=== PATIENT | male | born 1955 | race Caucasian/White ===

== ENCOUNTER → 2018-02-19 10:25 | Outpatient (CLI) | payer OTHER, SELFPAY ==
[2016-11-08 15:12] VITALS: BMI 44.6
--- NOTE | 2018-02-19 10:27 | STEWCON_ITS ---
Reason For Study: Pre-Op Stress Results Protocol: Dobutamine Stress Echo Maximum Predicted HR: 159 bpm Target HR: 135 bpm% Maximum Pre dicted HR: 86 % DurationHeart Rate Stage (mm:ss) (bpm) BPCom ment Baseline 57 155/80 No Chest Pain, Definity 10 ML Diluted Given DSE 10 MCG 4:07 73 148/86No Chest Pain DSE 20 MCG 3:00 11 1 183/87No Chest Pain DSE 30 MCG 3:00 12 3 183/79No Chest Pain DSE 40 MCG 2:42 13 7 171/76No Chest Pain; Atropine 0.5 MG IVP Recovery 97 148/75 No Chest Pain Stress Duration: 12:49 mm:ss Maximum Stress HR: 137 bpmME TS: 1 Baseline Echocardiogram Findings The estimated ejection fraction is 65 %. Stress Echo Wall motion Data Resting WMIntermediate WMStress WM Resting Wall Motion Wall Motion Stress No regional wall motion No regional wall motion abnormalities noted. abnormalities noted. EKG Data The baseline ECG demonstrates normal sinus rhythm with at rate of _ beats per minute. The patient was titrated from 10 mcg to a maximum of 40 mcg of dobutamine during the stress. The maximum heart rate attained was 137 beats per minute. This was 86% of maximum predicted heart rate. During dobutamine infusion, there were no ST or T wave changes noted to suggest ischemia. No clinical angina was noted. Interpretation Summary The study was technically difficult. Contrast injection was performed. The estimated ejection fraction is 65 %. Normal, adequate, treadmill dobutamine echocardiogram. Negative for ischemia by EKG and echocardiographic criteria. No anginal symptoms noted. Hypertensive blood pressure response to dobutamine. Rare PVCs noted. Final LVEF is 75%. Decreased sensitivity due to poor echo windows requiring Definity enhancement agent. No complications. Ordering Physician: Carlos Luna Referring Physician: Carlos Luna Performed By: Nelia Brock, KHURRAM, RVT
== END ==
PROVIDERS: Visit Provider Internal Medicine Cardiovascular Disease
DX: Z01.810 Encounter for preprocedural cardiovascular examination (principal); I25.10 Atherosclerotic heart disease of native coronary artery without angina pectoris; I25.5 Ischemic cardiomyopathy; I25.2 Old myocardial infarction; Z95.5 Presence of coronary angioplasty implant and graft
CPT/HCPCS: 93017; 93350; J7030; Q9957; A4216; C8928

== ENCOUNTER → 2019-10-09 08:45 | Outpatient (CLI) | payer OTHER, SELFPAY ==
[2016-11-08 15:12] VITALS: BMI 44.6
[2019-04-13 16:00] VITALS: BMI 44.6
[2019-10-09 10:06] LABS: Hemoglobin A1c 7.3 % (4.2-6.3)
[2019-10-09 10:32] LABS: AST(SGOT) 13 U/L (15-37); Alanine Aminotransfer ALT/SGPT 21 U/L (16-61); Albumin, Serum 3.9 g/dL (3.2-5.0); Alkaline Phosphatase 122 U/L (45-117); Bilirubin, Direct 0.19 mg/dL (0.00-0.30); Cholesterol 168 mg/dL (200); Globulin 3.4 g/dL (2.2-4.2); Glucose 151 mg/dL (74-106); High Density Lipoprotein 57 mg/dL; PSA,Total - Annual Screen 2.92 ng/mL (0.00-4.00); Protein, Total 7.3 g/dL (6.4-8.2); Thyroid Stim Hormone (TSH) 1.45 uIU/mL (0.358-3.74); Triglycerides 136 mg/dL; Very Low Density Lipoprotein 27 mg/dL (5-40)
== END ==
PROVIDERS: PCP Family Medicine; Referring Provider Internal Medicine Cardiovascular Disease; Visit Provider Internal Medicine Cardiovascular Disease
DX: E78.00 Pure hypercholesterolemia, unspecified (principal)
CPT/HCPCS: 36415; 80061; 80076; 82947; 83036; 84153; 84443; G0103

== ENCOUNTER → 2020-11-18 08:08 | Outpatient (CLI) | payer OTHER, SELFPAY ==
[2016-11-08 15:12] VITALS: BMI 44.6
[2020-10-03 08:41] VITALS: BMI 43.0
[2020-11-18 08:48] LABS: Prothrombin Time (Protime)PT. 22.3 SECONDS (11.7-14.9)
[2020-11-18 08:57] LABS: Basophil# 0.03 X10^3/uL; Basophil% 0.4 % (0-1); Eosinophil# 0.12 X10^3/uL; Eosinophils% 1.8 % (0-5); Hemoglobin 14.6 g/dL (13.0-16.5); Lymphocyte % 29.8 % (19-41); Mean Corp Hgb Conc 31.7 g/dL (32-36); Mean Corpuscular Hgb 28.7 pg (27.0-32.0); Mean Corpuscular Volume 90.6 fL (80-94); Mean Platelet Vol. 10.2 fl (6.2-12.0); Monocyte# 0.57 X10^3/uL; Monocyte% 8.5 % (0-10); NRBC Flagged by Analyzer 0 % (0-5); Neutrophil # 3.96 X10^3/uL (2.7-7.7); Neutrophil % 59.1 % (47-70); Platelet Count 290 K/mm3 (150-450); RBC Distribution Width CV 14.5 % (11.6-14.6); RBC Distribution Width SD 48.1 fl (35.1-43.9); Red Blood Count 5.08 M/mm3 (4.6-6.2); White Blood Count 6.7 K/mm3 (4.4-11.0)
[2020-11-18 08:59] LABS: Erythrocyte Sedimentation Rate 18 mm/hr (0-20)
[2020-11-18 09:22] LABS: CRP < 2.90 mg/L (0.0-3.0)
[2020-11-21 17:07] LABS: Vitamin D 1,25-Dihydroxy 82.4 pg/mL (19.9-79.3)
== END ==
PROVIDERS: Physician Assistant Medical; PCP Family Medicine; Referring Provider Physician Assistant Surgical; Visit Provider Physician Assistant Surgical
DX: I26.99 Other pulmonary embolism without acute cor pulmonale (principal); Z09 Encounter for follow-up examination after completed treatment for conditions other than malignant neoplasm; T84.53XD Infection and inflammatory reaction due to internal right knee prosthesis, subsequent encounter; Z96.651 Presence of right artificial knee joint
CPT/HCPCS: 36415; 82652; 85025; 85610; 85652; 86140

== ENCOUNTER → 2020-12-06 09:31 | Outpatient (CLI) | payer OTHER, SELFPAY ==
[2016-11-08 15:12] VITALS: BMI 44.6
[2020-12-06 08:29] VITALS: BMI 47.0
[2020-12-06 09:59] LABS: Absolute Lymphocyte Count 1.56 X10^3/uL (0.83-4.51); Absolute Neutrophil Count 3.4 X10^3/uL (2.0-7.7); Basophil# 0.03 X10^3/uL; Basophil% 0.5 % (0-1); Eosinophil# 0.14 X10^3/uL; Eosinophils% 2.5 % (0-5); Hemoglobin 14.5 g/dL (13.0-16.5); Lymphocyte # 1.56 X10^3/ul (0.83-4.51); Lymphocyte % 27.8 % (19-41); Mean Corp Hgb Conc 32.2 g/dL (32-36); Mean Corpuscular Hgb 28.9 pg (27.0-32.0); Mean Corpuscular Volume 89.8 fL (80-94); Mean Platelet Vol. 10.4 fl (6.2-12.0); Monocyte# 0.47 X10^3/uL; Monocyte% 8.4 % (0-10); NRBC Flagged by Analyzer 0 % (0-5); Neutrophil # 3.39 X10^3/uL (2.7-7.7); Neutrophil % 60.4 % (47-70); Platelet Count 216 K/mm3 (150-450); RBC Distribution Width CV 14.4 % (11.6-14.6); RBC Distribution Width SD 47.2 fl (35.1-43.9); Red Blood Count 5.01 M/mm3 (4.6-6.2); White Blood Count 5.6 K/mm3 (4.4-11.0)
[2020-12-06 10:32] LABS: BNP,B-Type NATRIURETIC PEPTIDE 141.9 pg/mL (0-100)
[2020-12-06 10:45] LABS: AST(SGOT) 11 U/L (15-37); Alanine Aminotransfer ALT/SGPT 21 U/L (16-61); Albumin, Serum 3.5 g/dL (3.2-5.0); Alkaline Phosphatase 92 U/L (45-117); Anion Gap 5 (5-15); BUN 21 mg/dL (7-18); BUN/Creat Ratio 30.4 RATIO (10-20); Bilirubin, Direct 0.26 mg/dL (0.00-0.30); Calcium,Total 8.8 mg/dL (8.5-10.1); Chloride 109 mmol/L (98-107); Cholesterol 128 mg/dL (200); Creatinine, Serum 0.69 mg/dL (0.70-1.30); EST Glomerular Filtration Rate 123 mL/min (>60); Est Glom Filt Rate - Afr Amer 148 mL/min (>60); Globulin 3.2 g/dL (2.2-4.2); Glucose 163 mg/dL (74-106); High Density Lipoprotein 49 mg/dL; Potassium 4.4 mmol/L (3.5-5.1); Protein, Total 6.7 g/dL (6.4-8.2); Sodium Level 139 mmol/L (136-145); Triglycerides 136 mg/dL; Very Low Density Lipoprotein 27 mg/dL (5-40)
== END ==
PROVIDERS: PCP Family Medicine; Referring Provider Nurse Practitioner Family; Visit Provider Nurse Practitioner Family
DX: R07.9 Chest pain, unspecified (principal); I25.10 Atherosclerotic heart disease of native coronary artery without angina pectoris; E78.5 Hyperlipidemia, unspecified; Z95.5 Presence of coronary angioplasty implant and graft
CPT/HCPCS: 80048; 80061; 80076; 83880; 85025

== ENCOUNTER → 2020-12-18 07:02 | Outpatient (CLI) | payer OTHER, SELFPAY ==
[2016-11-08 15:12] VITALS: BMI 44.6
[2020-12-06 08:29] VITALS: BMI 47.0
--- NOTE | 2020-12-18 07:03 | ECHOCS_ITS ---
Reason For Study: Afib, Aflutter Procedure This was a 2D Doppler, Color Flow transthoracic echocardiogram. Contrast injection was performed. The study was technically difficult. Exam performed in department. Left Ventricle Normal LV size. Moderate concentric left ventricular hypertrophy. Sigmoid septum. Left ventricular systolic function is normal. The estimated ejection fraction is 60 %. Right Ventricle Normal RV size. Normal systolic function. Atria The left atrium is moderately enlarged. Normal right atrium. Mitral Valve Normal mitral valve. Tricuspid Valve The tricuspid valve is not well visualized. Aortic Valve The aortic valve is not well visualized. Pulmonic Valve The pulmonic valve is not well visualized. Great Vessels Normal aortic root. The pulmonary artery is normal size. Normal inferior vena cava. Pericardium/Pleural No pericardial effusion. Medication Diluted definity 5ml given slow IV push to enhance endocardial definition. MMode/2D Measurements & Calculations LVIDd: 4.8 cm IVSd: 1.6 cm Ao root diam: 3.5 cm LVIDs: 3.4 cm LVPWd: 1.2 cm RVDd: 4.2 cm FS: 30.1 % LAV(MOD-bp): 83.1 ml LA A4 area: 25.4 cm2 LA dimension(2D): 5.0 cm LAV(MOD-bp) Indexed: 32.1 ml/m2 LAV(MOD-sp2): 89.0 ml LAV(MOD-sp4): 73.0 ml RA A4 area: 19.8 cm2 Doppler Measurements & Calculations MV E max mak: 117.7 cm/sec Ao V2 max: 112.6 cm/sec LV V1 max: 83.9 cm/sec Ao max P.1 mmHg LV V1 max P.9 mmHg Ao V2 mean: 84.7 cm/sec Ao mean P.1 mmHg Ao V2 VTI: 22.4 cm PA V2 max: 76.1 cm/sec ECHO/Echo Complete W/ Contrast Interpretation Summary Normal LV size. Moderate concentric left ventricular hypertrophy. Left ventricular systolic function is normal. The estimated ejection fraction is 60 %. Contrast injection was performed. Ordering Physician: Johnathan Robles Referring Physician: Florentin Collier Performed By: Gracy Robles, KHURRAM, RVT
--- NOTE | 2020-12-18 11:55 | STRESSREP ---
Stress Test Report Pharmacologic myocardial perfusion stress test. 65-year-old man with a history of coronary artery disease status post angioplasty and stenting of the left anterior descending artery, circumflex artery, and obtuse marginal branch. Stress protocol: Resting EKG demonstrates atrial fibrillation with a rate of 82 bpm and a right bundle branch block. Resting blood pressure is 158/86 mmHg. 0.4 mg of regadenoson was infused per usual protocol followed by rapid intravenous saline flush injection continuous EKG monitoring was performed. The maximum heart rate attained was 110 bpm which was 70% of maximum predicted heart rate the maximum workload was 1 metabolic equivalent. At rest there were no ST or T wave changes noted to suggest abnormal flow reserve and at peak infusion nonspecific ST changes were noted. The peak blood pressure was 158/86 mmHg. Myocardial perfusion protocol. 14.8 mCi of technetium 99m sestamibi was injected at rest. 0.4 mg of regadenoson was infused per usual protocol. At peak infusion 44.9 mCi of technetium 99m sestamibi was injected stress images were obtained stress and rest images were constructed and compared in the short axis vertical long and horizontal long axis. Gated images were also obtained. Perfusion SPECT analysis: Review of the stress images demonstrate normal uptake of tracer noted in all areas of the myocardium except for the apex. The resting images similarly demonstrate normal perfusion in all areas except for the apex. The rest of the chavez appear to be well perfused. The above is suggestive of an anterior apical infarct. No ischemia is noted. Gated SPECT analysis: The gated ejection fraction is 57% with a nearly akinetic apex. Conclusion: Pharmacologic myocardial perfusion stress test with apical infarct. Preserved ejection fraction is noted. No ischemia present.
== END ==
PROVIDERS: PCP Family Medicine; Referring Provider Nurse Practitioner Family; Visit Provider Nurse Practitioner Family
DX: R07.9 Chest pain, unspecified (principal); I48.91 Unspecified atrial fibrillation; I25.10 Atherosclerotic heart disease of native coronary artery without angina pectoris; Z95.5 Presence of coronary angioplasty implant and graft
CPT/HCPCS: 78452; 93017; 93306; A9500; Q9957; A4216; C8929; J2785; J3490

== ENCOUNTER → 2021-02-13 12:20 | Outpatient (CLI) | payer OTHER, SELFPAY ==
[2016-11-08 15:12] VITALS: BMI 44.6
[2020-12-27 08:35] VITALS: BMI 47.0
[2021-02-13 13:18] LABS: Absolute Lymphocyte Count 1.39 X10^3/uL (0.83-4.51); Absolute Neutrophil Count 4.3 X10^3/uL (2.0-7.7); Basophil# 0.01 X10^3/uL; Basophil% 0.2 % (0-1); Eosinophil# 0.11 X10^3/uL; Eosinophils% 1.7 % (0-5); Hemoglobin 14.1 g/dL (13.0-16.5); Lymphocyte # 1.39 X10^3/ul (0.83-4.51); Lymphocyte % 21.1 % (19-41); Mean Corp Hgb Conc 31.3 g/dL (32-36); Mean Corpuscular Hgb 28.3 pg (27.0-32.0); Mean Corpuscular Volume 90.4 fL (80-94); Mean Platelet Vol. 9.9 fl (6.2-12.0); Monocyte# 0.71 X10^3/uL; Monocyte% 10.8 % (0-10); NRBC Flagged by Analyzer 0 % (0-5); Neutrophil # 4.34 X10^3/uL (2.7-7.7); Neutrophil % 65.9 % (47-70); Platelet Count 316 K/mm3 (150-450); RBC Distribution Width CV 14.4 % (11.6-14.6); RBC Distribution Width SD 47.8 fl (35.1-43.9); Red Blood Count 4.98 M/mm3 (4.6-6.2); White Blood Count 6.6 K/mm3 (4.4-11.0)
[2021-02-13 13:31] LABS: Erythrocyte Sedimentation Rate 80 mm/hr (0-20); International Normalized Ratio 2.1
[2021-02-13 13:39] LABS: Anion Gap 6 (5-15); BUN 16 mg/dL (7-18); BUN/Creat Ratio 20.2 RATIO (10-20); Chloride 107 mmol/L (98-107); Creatinine, Serum 0.79 mg/dL (0.70-1.30); EST Glomerular Filtration Rate 105 mL/min (>60); Est Glom Filt Rate - Afr Amer 127 mL/min (>60); Glucose 193 mg/dL (74-106); Sodium Level 139 mmol/L (136-145)
== END ==
PROVIDERS: Nurse Practitioner Family; PCP Family Medicine; Referring Provider Physician Assistant Surgical; Visit Provider Physician Assistant Surgical
DX: M25.561 Pain in right knee (principal); I48.0 Paroxysmal atrial fibrillation; I45.10 Unspecified right bundle-branch block; Z79.02 Long term (current) use of antithrombotics/antiplatelets; Z79.01 Long term (current) use of anticoagulants
CPT/HCPCS: 36415; 80048; 85025; 85610; 85652; 86140

== ENCOUNTER → 2021-02-15 | Outpatient (CLI) | payer OTHER, SELFPAY ==
[2016-11-08 15:12] VITALS: BMI 44.6
[2020-12-27 08:35] VITALS: BMI 47.0
[2021-02-15 10:36] LABS: Synovial Fld Mononuclear WBC % 2.3 %; Synovial Fld Polynuclear WBC % 97.7 %
[2021-02-15 10:53] LABS: RBC /Synovial Fluid 0.011 10^6/uL (0)
[2021-02-15 10:55] LABS: AUTO B FLUID DILUENT BKGD CT WBC <0.1 RBC <0.01 (W<.1,R<.01); Appearance /Synovial Fluid Turbid (CLEAR); Color / Synovial Fluid Yellow (Pale Yellow); Source / Synovial Fluid KNEE; Viscosity / Synovial Fluid Viscous (HIGH)
[2021-02-15 12:20] LABS: Body Fluid QC Type(s) BF1Q; Lymph 1 %; Neutrophil 99 % (0-25)
[2021-02-16 13:40] LABS: Pathologist Comment Reviewed
== END | disposition home or self-care (01) ==
LOC: LABSPEC 09:37
PROVIDERS: Referring Provider Specialist; Visit Provider Specialist
DX: Z96.651 Presence of right artificial knee joint (principal)
CPT/HCPCS: 87015; 87070; 87075; 87077; 87101; 87116; 87186; 87205; 87206; 89050; 89051

== ENCOUNTER 2021-03-26 10:32 | Day surgery (SDC) | payer OTHER, SELFPAY ==
[2016-11-08 15:12] VITALS: BMI 44.6
[2021-02-27 14:53] VITALS: BMI 45.3
[2021-03-23 09:32] VITALS: BMI 45.3
--- NOTE | 2021-03-24 06:58 | RAD_ITS ---
STUDY: X-RAY CHEST REASON FOR EXAM: Male, 65 years old. pre-operative TECHNIQUE: PA and lateral views of the chest. COMPARISON: 10/13/2016 FINDINGS: Status post anterior cervical discectomy and fusion lower cervical spine. The lungs are clear and expanded. There is no demonstrated pleural abnormality. Normal size heart. Normal mediastinum and esteban. Normal visualized pulmonary arteries. Normal visualized aortic arch and descending thoracic aorta. Normal visualized thoracic spine. Normal visualized ribs, clavicles, and shoulders. There is no demonstrated abnormality of the visualized soft tissue structures of the upper abdomen. RAD/Chest PA and Lateral IMPRESSION: Normal x-ray examination of the chest. Electronically Signed: Judah Costello MD at 8:05 EDT Tel , Service support ,
[2021-03-24 08:22] LABS: AST(SGOT) 13 U/L (15-37); Alanine Aminotransfer ALT/SGPT 19 U/L (16-61); Albumin, Serum 3.4 g/dL (3.2-5.0); Alkaline Phosphatase 119 U/L (45-117); Anion Gap 10 (5-15); BUN 15 mg/dL (7-18); BUN/Creat Ratio 20.7 RATIO (10-20); Bilirubin, Direct 0.24 mg/dL (0.00-0.30); Calcium,Total 9.4 mg/dL (8.5-10.1); Chloride 102 mmol/L (98-107); Cholesterol 165 mg/dL (200); Creatinine, Serum 0.72 mg/dL (0.70-1.30); EST Glomerular Filtration Rate 116 mL/min (>60); Est Glom Filt Rate - Afr Amer 140 mL/min (>60); Estimated Creatinine Clearance 127.25 ml/min; Globulin 4.2 g/dL (2.2-4.2); Glucose 165 mg/dL (74-106); High Density Lipoprotein 45 mg/dL; Potassium 4.2 mmol/L (3.5-5.1); Protein, Total 7.6 g/dL (6.4-8.2); Sodium Level 138 mmol/L (136-145); Triglycerides 140 mg/dL; Very Low Density Lipoprotein 28 mg/dL (5-40)
--- NOTE | 2021-03-26 12:11 | OP.PCM_ITS ---
Problems Associated Problem List Diagnoses (1) Paroxysmal atrial fibrillation: Operative Report Date of Procedure: 03/26/21 DC cardioversion. 65-year-old man with a history of persistent atrial fibrillation. Patient has been compliant with anticoagulation. The patient was seen by Dr. Falk of the critical care division. Informed consent was obtained. Anterior-posterior pads were applied. The patient was then administered 100 mg of intravenous propofol. 300 J of synchronized DC cardioversion energy were applied which was not successful in restoring sinus rhythm. The patient was administered an additional 40 mg of intravenous propofol for total of 140 mg. 360 J of DC card ioversion were applied with prompt reversal to sinus rhythm. Patient tolerated the procedure well. Conclusion: Successful DC cardioversion from atrial fibrillation to sinus rhythm. Continue current medication. We will follow office protocol.
--- NOTE | 2021-03-26 12:56 | PRO.PCM_ITS ---
Assessment & Plan Assessment/Plan (1) Paroxysmal atrial fibrillation: (2) Sleep apnea: (3) Obesities, morbid: (4) Pulmonary embolism, bilateral: (5) Cardiomyopathy, ischemic: Procedure Report Date of Procedure: 03/26/21 CONSCIOUS SEDATION REPORT BRIEF HISTORY OF PRESENT ILLNESS: The patient is a 65-year-old male who presented to [facility] for an elective outpatient cardioversion due to underlying atrial fibrillation. The patient reports no PO intake since midnight, but is currently therapeutic on anticoagulation. The patient does have a history of obstructive sleep apnea and is compliant with therapy. The patient reports no history of smoking and COPD. The patient denies any recent constitutional symptoms such as fevers, chills, nausea or vomiting. The patient denies previous applicable anesthetic complications. Patient's last known ejection fraction was 60% and he is compliant with Eliquis at baseline. Patient is on doxycycline secondary to a chronic right knee infection. PHYSICAL EXAMINATION: VITAL SIGNS: Reviewed and were acceptable. GENERAL: The patient is a male, in no apparent distress, speaking in full sentences. HEENT: Normocephalic, atraumatic. Mucous membranes are moist and pink. Good mouth opening noted. Trachea is midline. Good neck mobility. MP IV CHEST: S1, S2 irregularly irregular. No murmurs, rubs or gallops were noted. LUNGS: Clear to auscultation bilaterally without appreciable wheezes, rales or rhonchi. ABDOMEN: Soft, nontender, nondistended. Positive bowel sounds. EXTREMITIES: There is no clubbing, cyanosis or edema. ASA Class: II DESCRIPTION OF PROCEDURE: After confirmation of informed consent, the patient's anesthesia plan was reviewed in detail. Propofol was chosen. Risks and benefits were reviewed and the patient agreed to proceed. At 11:56 AM, the patient was given 40 mg of prop ofol. The patient required a total of 140 mg of propofol throughout the procedure to achieve appropriate sedation. The patient achieved an appropriate level of sedation and received 2 attempt s synchronized cardioversion, at 300 J and [address] Amado at the bedside. This was successful in achieving normal sinus rhythm. The patient was monitored until 12:12 PM, at which time the patient reached their baseline mental status and function. The patient tolerated the procedure well. COMPLICATIONS: None ESTIMATED BLOOD LOSS: None RECOMMENDATIONS: Okay to recover in usual fashion. Procedures Pulmonary 9xxxx: [id number] Con Sedation
== END 2021-03-26 13:20 | disposition home or self-care (01) ==
PROVIDERS: Nurse Practitioner Family; Visit Provider Internal Medicine Cardiovascular Disease
DX: I48.0 Paroxysmal atrial fibrillation (principal); E78.2 Mixed hyperlipidemia; I25.10 Atherosclerotic heart disease of native coronary artery without angina pectoris; I25.5 Ischemic cardiomyopathy; G47.30 Sleep apnea, unspecified; E11.9 Type 2 diabetes mellitus without complications; E66.01 Morbid (severe) obesity due to excess calories; I10 Essential (primary) hypertension; Z95.5 Presence of coronary angioplasty implant and graft; Z86.718 Personal history of other venous thrombosis and embolism; Z86.711 Personal history of pulmonary embolism; Z79.84 Long term (current) use of oral hypoglycemic drugs; Z79.02 Long term (current) use of antithrombotics/antiplatelets; Z79.899 Other long term (current) drug therapy; Z68.42 Body mass index [BMI] 45.0-49.9, adult
CPT/HCPCS: 36415; 71046; 80048; 80061; 80076; 92960; 93005; J7040

== ENCOUNTER → 2021-05-12 10:05 | Outpatient (CLI) | payer OTHER, SELFPAY ==
[2016-11-08 15:12] VITALS: BMI 44.6
[2021-05-12 10:53] LABS: Absolute Lymphocyte Count 1.31 X10^3/uL (0.83-4.51); Absolute Neutrophil Count 4.4 X10^3/uL (2.0-7.7); Basophil# 0.02 X10^3/uL; Basophil% 0.3 % (0-1); Eosinophil# 0.22 X10^3/uL; Eosinophils% 3.4 % (0-5); Hematocrit 45.1 % (40-54); Lymphocyte # 1.31 X10^3/ul (0.83-4.51); Lymphocyte % 20.3 % (19-41); Mean Corpuscular Hgb 27.1 pg (27.0-32.0); Mean Corpuscular Volume 87.2 fL (80-94); Mean Platelet Vol. 9.4 fl (6.2-12.0); Monocyte# 0.51 X10^3/uL; Monocyte% 7.9 % (0-10); NRBC Flagged by Analyzer 0 % (0-5); Neutrophil # 4.37 X10^3/uL (2.7-7.7); Neutrophil % 67.6 % (47-70); Platelet Count 324 K/mm3 (150-450); RBC Distribution Width CV 15.8 % (11.6-14.6); Red Blood Count 5.17 M/mm3 (4.6-6.2); White Blood Count 6.5 K/mm3 (4.4-11.0)
[2021-05-12 11:01] LABS: International Normalized Ratio 1.3
[2021-05-12 11:48] LABS: ALB/GLOB Ratio 0.7 RATIO (0.9-2.4); AST(SGOT) 10 U/L (15-37); Alanine Aminotransfer ALT/SGPT 17 U/L (16-61); Albumin, Serum 3.2 g/dL (3.2-5.0); Alkaline Phosphatase 105 U/L (45-117); Anion Gap 9 (5-15); BUN 20 mg/dL (7-18); BUN/Creat Ratio 28.3 RATIO (10-20); Calcium,Total 9.9 mg/dL (8.5-10.1); Chloride 102 mmol/L (98-107); Creatinine, Serum 0.71 mg/dL (0.70-1.30); EST Glomerular Filtration Rate 119 mL/min (>60); Est Glom Filt Rate - Afr Amer 144 mL/min (>60); Globulin 4.4 g/dL (2.2-4.2); Glucose 156 mg/dL (74-106); Potassium 4.4 mmol/L (3.5-5.1); Protein, Total 7.6 g/dL (6.4-8.2); Sodium Level 138 mmol/L (136-145)
== END ==
DX: T84.53XA Infection and inflammatory reaction due to internal right knee prosthesis, initial encounter (principal); Z96.651 Presence of right artificial knee joint
CPT/HCPCS: 36415; 80053; 85025; 85610

== ENCOUNTER → 2021-05-28 | Outpatient (CLI) | payer OTHER, SELFPAY ==
[2016-11-08 15:12] VITALS: BMI 44.6
[2021-05-28 11:01] LABS: Absolute Lymphocyte Count 0.86 X10^3/uL (0.83-4.51); Absolute Neutrophil Count 3.1 X10^3/uL (2.0-7.7); Basophil# 0.03 X10^3/uL; Basophil% 0.6 % (0-1); Eosinophil# 0.25 X10^3/uL; Eosinophils% 5.3 % (0-5); Hematocrit 33.6 % (40-54); Hemoglobin 10.3 g/dL (13.0-16.5); Lymphocyte # 0.86 X10^3/ul (0.83-4.51); Lymphocyte % 18.1 % (19-41); Mean Corp Hgb Conc 30.7 g/dL (32-36); Mean Corpuscular Hgb 26.6 pg (27.0-32.0); Mean Corpuscular Volume 86.8 fL (80-94); Mean Platelet Vol. 9.9 fl (6.2-12.0); Monocyte# 0.43 X10^3/uL; Monocyte% 9.1 % (0-10); NRBC Flagged by Analyzer 0 % (0-5); Neutrophil # 3.14 X10^3/uL (2.7-7.7); Neutrophil % 66.3 % (47-70); Platelet Count 273 K/mm3 (150-450); RBC Distribution Width CV 16.8 % (11.6-14.6); Red Blood Count 3.87 M/mm3 (4.6-6.2); White Blood Count 4.7 K/mm3 (4.4-11.0)
[2021-05-28 11:17] LABS: Erythrocyte Sedimentation Rate 50 mm/hr (0-20)
[2021-05-28 11:24] LABS: ALB/GLOB Ratio 0.8 RATIO (0.9-2.4); AST(SGOT) 12 U/L (15-37); Alanine Aminotransfer ALT/SGPT 16 U/L (16-61); Albumin, Serum 2.7 g/dL (3.2-5.0); Alkaline Phosphatase 91 U/L (45-117); Anion Gap 10 (5-15); BUN 17 mg/dL (7-18); BUN/Creat Ratio 35.9 RATIO (10-20); Calcium,Total 8.7 mg/dL (8.5-10.1); Chloride 104 mmol/L (98-107); Creatinine, Serum 0.47 mg/dL (0.70-1.30); EST Glomerular Filtration Rate 189 mL/min (>60); Est Glom Filt Rate - Afr Amer 229 mL/min (>60); Globulin 3.2 g/dL (2.2-4.2); Glucose 140 mg/dL (74-106); Protein, Total 5.9 g/dL (6.4-8.2); Sodium Level 139 mmol/L (136-145)
[2021-05-28 11:29] LABS: Vancomycin, Trough Level 6.6 ug/mL (5.0-15.0)
== END | disposition home or self-care (01) ==
LOC: LABSPEC 10:34
DX: T84.84XA Pain due to internal orthopedic prosthetic devices, implants and grafts, initial encounter (principal); T84.53XD Infection and inflammatory reaction due to internal right knee prosthesis, subsequent encounter
CPT/HCPCS: 80053; 80202; 85025; 85652

== ENCOUNTER → 2021-06-04 | Outpatient (CLI) | payer OTHER, SELFPAY ==
[2021-06-04 11:12] LABS: Absolute Lymphocyte Count 1.04 X10^3/uL (0.83-4.51); Basophil# 0.03 X10^3/uL; Basophil% 0.6 % (0-1); Eosinophil# 0.29 X10^3/uL; Eosinophils% 5.9 % (0-5); Hematocrit 39.8 % (40-54); Hemoglobin 12.3 g/dL (13.0-16.5); Lymphocyte # 1.04 X10^3/ul (0.83-4.51); Lymphocyte % 21.1 % (19-41); Mean Corp Hgb Conc 30.9 g/dL (32-36); Mean Corpuscular Volume 87.3 fL (80-94); Mean Platelet Vol. 10.1 fl (6.2-12.0); Monocyte# 0.53 X10^3/uL; Monocyte% 10.8 % (0-10); NRBC Flagged by Analyzer 0 % (0-5); Platelet Count 264 K/mm3 (150-450); RBC Distribution Width CV 17.4 % (11.6-14.6); RBC Distribution Width SD 54.8 fl (35.1-43.9); Red Blood Count 4.56 M/mm3 (4.6-6.2); White Blood Count 4.9 K/mm3 (4.4-11.0)
[2021-06-04 11:22] LABS: Erythrocyte Sedimentation Rate 37 mm/hr (0-20)
[2021-06-04 11:33] LABS: AST(SGOT) 17 U/L (15-37); Alanine Aminotransfer ALT/SGPT 21 U/L (16-61); Albumin, Serum 3.3 g/dL (3.2-5.0); Alkaline Phosphatase 103 U/L (45-117); Anion Gap 7 (5-15); BUN 19 mg/dL (7-18); BUN/Creat Ratio 33.9 RATIO (10-20); Calcium,Total 9.2 mg/dL (8.5-10.1); Chloride 106 mmol/L (98-107); Creatinine, Serum 0.56 mg/dL (0.70-1.30); EST Glomerular Filtration Rate 156 mL/min (>60); Est Glom Filt Rate - Afr Amer 188 mL/min (>60); Globulin 3.3 g/dL (2.2-4.2); Glucose 132 mg/dL (74-106); Potassium 4.3 mmol/L (3.5-5.1); Protein, Total 6.6 g/dL (6.4-8.2); Sodium Level 139 mmol/L (136-145)
[2021-06-04 11:34] LABS: Vancomycin, Trough Level 10.3 ug/mL (5.0-15.0)
== END | disposition home or self-care (01) ==
DX: T84.53XD Infection and inflammatory reaction due to internal right knee prosthesis, subsequent encounter (principal); T84.84XA Pain due to internal orthopedic prosthetic devices, implants and grafts, initial encounter; Y83.8 Other surgical procedures as the cause of abnormal reaction of the patient, or of later complication, without mention of misadventure at the time of the procedure; Y92.9 Unspecified place or not applicable
CPT/HCPCS: 80053; 80202; 85025; 85652

== ENCOUNTER → 2021-06-11 | Outpatient (CLI) | payer OTHER, SELFPAY ==
[2016-11-08 15:12] VITALS: BMI 44.6
[2021-06-11 11:00] LABS: Basophil# 0.03 X10^3/uL; Basophil% 0.8 % (0-1); Eosinophil# 0.31 X10^3/uL; Eosinophils% 8.7 % (0-5); Hematocrit 38.2 % (40-54); Hemoglobin 11.9 g/dL (13.0-16.5); Lymphocyte % 19.6 % (19-41); Mean Corp Hgb Conc 31.2 g/dL (32-36); Mean Corpuscular Hgb 27.4 pg (27.0-32.0); Mean Corpuscular Volume 87.8 fL (80-94); Mean Platelet Vol. 9.9 fl (6.2-12.0); Monocyte# 0.51 X10^3/uL; Monocyte% 14.3 % (0-10); NRBC Flagged by Analyzer 0 % (0-5); Platelet Count 190 K/mm3 (150-450); RBC Distribution Width CV 17.5 % (11.6-14.6); RBC Distribution Width SD 55.9 fl (35.1-43.9); Red Blood Count 4.35 M/mm3 (4.6-6.2); White Blood Count 3.6 K/mm3 (4.4-11.0)
[2021-06-11 11:05] LABS: Erythrocyte Sedimentation Rate 25 mm/hr (0-20)
[2021-06-11 11:22] LABS: Vancomycin, Trough Level 9.9 ug/mL (5.0-15.0)
[2021-06-11 11:23] LABS: AST(SGOT) 12 U/L (15-37); Alanine Aminotransfer ALT/SGPT 21 U/L (16-61); Alkaline Phosphatase 99 U/L (45-117); Anion Gap 8 (5-15); BUN 19 mg/dL (7-18); BUN/Creat Ratio 30.8 RATIO (10-20); Calcium,Total 8.8 mg/dL (8.5-10.1); Chloride 105 mmol/L (98-107); Creatinine, Serum 0.62 mg/dL (0.70-1.30); EST Glomerular Filtration Rate 140 mL/min (>60); Est Glom Filt Rate - Afr Amer 169 mL/min (>60); Glucose 155 mg/dL (74-106); Potassium 4.1 mmol/L (3.5-5.1); Sodium Level 138 mmol/L (136-145)
== END | disposition home or self-care (01) ==
LOC: LABSPEC 10:41
DX: T84.53XD Infection and inflammatory reaction due to internal right knee prosthesis, subsequent encounter (principal); T84.84XA Pain due to internal orthopedic prosthetic devices, implants and grafts, initial encounter
CPT/HCPCS: 80053; 80202; 85025; 85652

== ENCOUNTER → 2021-06-18 | Outpatient (CLI) | payer OTHER, SELFPAY ==
[2016-11-08 15:12] VITALS: BMI 44.6
[2021-06-18 11:13] LABS: Absolute Lymphocyte Count 0.73 X10^3/uL (0.83-4.51); Absolute Neutrophil Count 2.3 X10^3/uL (2.0-7.7); Basophil# 0.03 X10^3/uL; Basophil% 0.8 % (0-1); Eosinophil# 0.26 X10^3/uL; Eosinophils% 7.1 % (0-5); Hematocrit 39.1 % (40-54); Hemoglobin 12.3 g/dL (13.0-16.5); Lymphocyte # 0.73 X10^3/ul (0.83-4.51); Mean Corp Hgb Conc 31.5 g/dL (32-36); Mean Corpuscular Volume 85.9 fL (80-94); Mean Platelet Vol. 10.3 fl (6.2-12.0); Monocyte# 0.37 X10^3/uL; Monocyte% 10.1 % (0-10); NRBC Flagged by Analyzer 0 % (0-5); Neutrophil # 2.25 X10^3/uL (2.7-7.7); Neutrophil % 61.7 % (47-70); Platelet Count 178 K/mm3 (150-450); RBC Distribution Width SD 53.9 fl (35.1-43.9); Red Blood Count 4.55 M/mm3 (4.6-6.2); White Blood Count 3.7 K/mm3 (4.4-11.0)
[2021-06-18 11:17] LABS: Erythrocyte Sedimentation Rate 33 mm/hr (0-20)
[2021-06-18 11:28] LABS: AST(SGOT) 16 U/L (15-37); Alanine Aminotransfer ALT/SGPT 25 U/L (16-61); Alkaline Phosphatase 102 U/L (45-117); Anion Gap 7 (5-15); BUN 17 mg/dL (7-18); BUN/Creat Ratio 29.9 RATIO (10-20); Calcium,Total 8.7 mg/dL (8.5-10.1); Chloride 107 mmol/L (98-107); Creatinine, Serum 0.57 mg/dL (0.70-1.30); EST Glomerular Filtration Rate 153 mL/min (>60); Est Glom Filt Rate - Afr Amer 185 mL/min (>60); Globulin 2.9 g/dL (2.2-4.2); Glucose 167 mg/dL (74-106); Potassium 4.2 mmol/L (3.5-5.1); Protein, Total 5.9 g/dL (6.4-8.2); Sodium Level 139 mmol/L (136-145)
[2021-06-18 11:29] LABS: Vancomycin, Trough Level 13.6 ug/mL (5.0-15.0)
== END | disposition home or self-care (01) ==
LOC: LABSPEC 10:51
DX: T84.53XD Infection and inflammatory reaction due to internal right knee prosthesis, subsequent encounter (principal); T84.84XA Pain due to internal orthopedic prosthetic devices, implants and grafts, initial encounter
CPT/HCPCS: 80053; 80202; 85025; 85652

== ENCOUNTER → 2021-06-25 | Outpatient (CLI) | payer OTHER, SELFPAY ==
[2016-11-08 15:12] VITALS: BMI 44.6
[2021-06-25 11:03] LABS: Absolute Lymphocyte Count 0.73 X10^3/uL (0.83-4.51); Absolute Neutrophil Count 2.2 X10^3/uL (2.0-7.7); Basophil# 0.02 X10^3/uL; Basophil% 0.6 % (0-1); Eosinophil# 0.13 X10^3/uL; Eosinophils% 3.8 % (0-5); Hemoglobin 11.9 g/dL (13.0-16.5); Lymphocyte # 0.73 X10^3/ul (0.83-4.51); Lymphocyte % 21.4 % (19-41); Mean Corp Hgb Conc 30.5 g/dL (32-36); Mean Corpuscular Hgb 26.6 pg (27.0-32.0); Mean Corpuscular Volume 87.2 fL (80-94); Mean Platelet Vol. 10.5 fl (6.2-12.0); Monocyte# 0.33 X10^3/uL; Monocyte% 9.7 % (0-10); NRBC Flagged by Analyzer 0 % (0-5); Neutrophil # 2.19 X10^3/uL (2.7-7.7); Neutrophil % 64.2 % (47-70); Platelet Count 185 K/mm3 (150-450); RBC Distribution Width CV 16.8 % (11.6-14.6); RBC Distribution Width SD 53.7 fl (35.1-43.9); Red Blood Count 4.47 M/mm3 (4.6-6.2); White Blood Count 3.4 K/mm3 (4.4-11.0)
[2021-06-25 11:06] LABS: Erythrocyte Sedimentation Rate 28 mm/hr (0-20)
[2021-06-25 11:12] LABS: Vancomycin, Trough Level 12.5 ug/mL (5.0-15.0)
[2021-06-25 11:24] LABS: AST(SGOT) 13 U/L (15-37); Alanine Aminotransfer ALT/SGPT 23 U/L (16-61); Alkaline Phosphatase 93 U/L (45-117); Anion Gap 8 (5-15); BUN 16 mg/dL (7-18); BUN/Creat Ratio 32.3 RATIO (10-20); Calcium,Total 8.9 mg/dL (8.5-10.1); Chloride 108 mmol/L (98-107); EST Glomerular Filtration Rate 179 mL/min (>60); Est Glom Filt Rate - Afr Amer 217 mL/min (>60); Glucose 142 mg/dL (74-106); Potassium 4.1 mmol/L (3.5-5.1); Sodium Level 141 mmol/L (136-145)
== END | disposition home or self-care (01) ==
LOC: LABSPEC 10:49
DX: T84.84XA Pain due to internal orthopedic prosthetic devices, implants and grafts, initial encounter (principal); T84.53XD Infection and inflammatory reaction due to internal right knee prosthesis, subsequent encounter
CPT/HCPCS: 80053; 80202; 85025; 85652

== ENCOUNTER → 2021-07-02 | Outpatient (CLI) | payer OTHER, SELFPAY ==
[2016-11-08 15:12] VITALS: BMI 44.6
[2021-07-02 12:41] LABS: Absolute Lymphocyte Count 0.59 X10^3/uL (0.83-4.51); Absolute Neutrophil Count 2.1 X10^3/uL (2.0-7.7); Basophil# 0.01 X10^3/uL; Basophil% 0.3 % (0-1); Eosinophil# 0.17 X10^3/uL; Eosinophils% 5.2 % (0-5); Hematocrit 41.7 % (40-54); Hemoglobin 12.8 g/dL (13.0-16.5); Lymphocyte # 0.59 X10^3/ul (0.83-4.51); Lymphocyte % 17.9 % (19-41); Mean Corp Hgb Conc 30.7 g/dL (32-36); Mean Corpuscular Hgb 26.9 pg (27.0-32.0); Mean Corpuscular Volume 87.6 fL (80-94); Mean Platelet Vol. 10.8 fl (6.2-12.0); Monocyte# 0.46 X10^3/uL; Monocyte% 13.9 % (0-10); NRBC Flagged by Analyzer 0 % (0-5); Neutrophil # 2.06 X10^3/uL (2.7-7.7); Neutrophil % 62.4 % (47-70); POSITIVE DIFFERENTIAL YES; Platelet Count 191 K/mm3 (150-450); RBC Distribution Width CV 16.4 % (11.6-14.6); RBC Distribution Width SD 52.8 fl (35.1-43.9); Red Blood Count 4.76 M/mm3 (4.6-6.2); White Blood Count 3.3 K/mm3 (4.4-11.0)
[2021-07-02 12:44] LABS: Erythrocyte Sedimentation Rate 27 mm/hr (0-20)
[2021-07-02 12:45] LABS: Differential Indicated SCAN CRITERIA MET
[2021-07-02 13:04] LABS: Vancomycin, Trough Level 12.1 ug/mL (5.0-15.0)
[2021-07-02 13:08] LABS: ALB/GLOB Ratio 1.2 RATIO (0.9-2.4); AST(SGOT) 14 U/L (15-37); Alanine Aminotransfer ALT/SGPT 20 U/L (16-61); Albumin, Serum 3.3 g/dL (3.2-5.0); Alkaline Phosphatase 99 U/L (45-117); Anion Gap 11 (5-15); BUN 18 mg/dL (7-18); Chloride 105 mmol/L (98-107); Creatinine, Serum 0.54 mg/dL (0.70-1.30); EST Glomerular Filtration Rate 161 mL/min (>60); Est Glom Filt Rate - Afr Amer 194 mL/min (>60); Globulin 2.8 g/dL (2.2-4.2); Glucose 178 mg/dL (74-106); Potassium 4.3 mmol/L (3.5-5.1); Protein, Total 6.1 g/dL (6.4-8.2); Sodium Level 142 mmol/L (136-145)
[2021-07-03 12:41] LABS: Pathologist Review Reviewed
== END | disposition home or self-care (01) ==
LOC: LABSPEC 12:13
DX: T84.53XD Infection and inflammatory reaction due to internal right knee prosthesis, subsequent encounter (principal); T84.84XA Pain due to internal orthopedic prosthetic devices, implants and grafts, initial encounter
CPT/HCPCS: 80053; 80202; 85025; 85652

== ENCOUNTER 2022-02-05 08:27 | Outpatient (RCR) | payer MEDICARE, OTHER, SELFPAY ==
[2016-11-08 15:12] VITALS: BMI 44.6
[2022-02-05 09:10] VITALS: BP 155/71; PULSE 61; RESP 22; TEMP 36.3; BMI 40.8
--- NOTE | 2022-02-05 13:53 | HP.PCM_ITS ---
History of Present Illness Date of Service: 02/05/22 [facility] Medical History Atherosclerosis of coronary artery of [place] heart without angina pectoris Bifascicular block Cardiomyopathy, ischemic Diabetes mellitus with multiple complications Essential hypertension History of deep vein thrombosis (DVT) of lower extremity (04/2013) History of pulmonary embolism (01/2014) History of ST elevation myocardial infarction (STEMI) (09/2016) Hyperlipidemia Leg edema Leg swelling Lymphedema Nonsustained ventricular tachycardia Obesities, morbid Obstructive sleep apnea on CPAP 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) Pulmonary embolism, bilateral (2013) Right bundle branch block Sleep apnea Type 2 diabetes mellitus without complications Home Medications aspirin 81 mg tablet,delayed release 81 mg PO DAILY@0800 #30 tabs 10/15/16 [Rx Last Taken 03/26/21] dapagliflozin 10 mg tablet 10 mg PO DAILY 10/03/20 [History Last Taken 03/26/21] metformin 750 mg tablet,extended release 24 hr 750 mg PO BID 10/03/20 [History Last Taken 03/26/21] multivitamin 1 tab PO QAM 10/03/20 [History Last Taken Unknown] calcium citrate 200 mg (950 mg) tablet 600 mg PO DAILY 12/06/20 [History Last Taken Unknown] cholecalciferol (vitamin D3) 25 mcg (1,000 unit) tablet 1,000 unit PO BID 12/06/20 [History Last Taken Unknown] furosemide 40 mg tablet 40 mg PO DAILY PRN depends on work schedule #90 tabs 02/27/21 [Rx Last Taken Unknown] atorvastatin 80 mg tablet 80 mg PO QHS #90 tabs 10/04/21 [Rx Last Taken Unknown] carvedilol 6.25 mg tablet 6.25 mg PO BID #180 tabs 10/04/21 [Rx Last Taken Unknown] losartan 50 mg tablet 50 mg PO BID #180 tabs 10/04/21 [Rx Last Taken Unknown] potassium chloride 20 mEq tablet,extended release(part/cryst) (Klor-Con M) 20 meq PO DAILY #90 tabs 10/04/21 [Rx Last Taken Unknown] hydrocodone-acetaminophen 5-325mg 5mg-325mg tablet PO 02/07/22 [History Last Taken Unknown] apixaban 5 mg tablet (Eliquis) See Rx Instructions .Route .COMPLEX #60 tabs 02/18/22 [Rx Last Taken Unknown] Allergy/AdvReac Type Severity Reaction Status Date / Time beeswax Allergy Anaphylaxis Verified 02/07/22 07:08 clarithromycin [From Biaxin] AdvReac Other Verified 02/07/22 07:08 Family History Brother CAD (coronary artery disease) Myocardial infarction Father CAD (coronary artery disease) Surgical History H/O knee surgery H/O repair of right rotator cuff History of cardioversion History of coronary artery stent placement (11/08/16) History of repair of right rotator cuff History of total bilateral knee replacement Social History Smoking Status: Never smoker alcohol intake: never substance use type: does not use caffeine: Yes Type: carbonated beverages Number of servings: 1 what type of physical activity do you participate in: walking frequency: daily duration: other details: active throughout the day seatbelt use: always do you feel safe at home: Yes Vital Signs Vital Signs Vital Signs: 02/05/22 09:10 Temperature 97.4 F L Temperature Source Temporal Pulse Rate 61 Respiratory Rate 22 H Blood Pressure 155/71 H Blood Pressure Mean 99 Blood Pressure Source Monitor Weight Weight: 344 lb 6.242 oz Body Mass Index (BMI) 40.8 Debridement Note Debridement Note Post-Debridement Measurements and Additional Note: Post-Debridement Measurements/Treatment - Nurse 1 - General Ulcer Assessment Start: 02/05/22 08:41 Freq: Status: Active Protocol: [email or web address] Activity Type Activity Date Activity User E-sign Co-sign Detail Recorded Client Recorded Date Recorded By Document 02/05/22 09:10 DL [id number] 02/05/22 09:24 DL 02/05/22 09:10 - Today's Visit Information Type of service Initial Visit Arrival Mode Ambulatory, Walker Transfer Assistance None Patient Identification Verified (Name & Yes ) Patient Requires Transmission-Based No Precautions Finger Stick Blood Sugar(mg/dl) (if 118 indicated): Blood Sugar Stated by Patient Height and Weight Height 6 ft 5 in Weight 344 lb 6.242 oz Weight in Pounds 344.4 lbs Body Mass Index (BMI) 40.8 BMI Classification Obese BSA - Isacc 2.82 Vital Signs Temperature (97.8 F-99.1 F) 97.4 F L Temperature Source Temporal Pulse Rate (60-100) 61 Pulse Location Monitor Respiratory Rate (12-18) 22 H Respiratory rate source Observation Blood Pressure (90/60-120/80) 155/71 H Blood Pressure Mean 99 Source Monitor History Since Last Visit- (Skip if this is Patient's initial visit) Left Footwear Regular Shoe Right Footwear Regular Shoe Pain Scale: 0-10 Numeric Is Patient Pain Free? Yes Lower Extremity Assessment/ Foot Assessment/ Toe Nail Assessment Left -Posterior Tibial Palpable No -Dorsalis Pedis Palpable No -Extremity Color Normal -Temperature of Extremity Warm -Capillary Refill Less than 3 Seconds -Dependent Rubor No -Blanched when Elevated No -Lipodermatosclerosis No -Other Deformity No -Prior Foot Ulcer No -Charcot Joint Yes -Prior Amputation No -Thick Yes -Discolored Yes -Deformed Yes -Improper Length & Hygeine No Right -Posterior Tibial Palpable No -Dorsalis Pedis Palpable No -Extremity Color Hyperpigmented -Hair Growth on Legs No -Hair Growth on Toes No -Temperature of Extremity Warm -Capillary Refill Less than 3 Seconds -Dependent Rubor No -Blanched when Elevated No -Lipodermatosclerosis No -Other Deformity No -Prior Foot Ulcer No -Prior Amputation No -Thick Yes -Discolored Yes -Deformed Yes -Improper Length & Hygeine No Neuropathy Assessment Feet - Top Side and Bottom <Entered> (a) Communication Assessment Preferred language Telugu Able to Read No Able to Write No Communication Tools None Right Hearing Abillity Normal Left Hearing Abillity Normal Visual Assistive Devices Glasses Teaching Assessment Preferences Verbal,Written, Demonstration Barriers to Learning None Readiness To Learn Good Willingness to Engage in Self Management Med Activies Readiness to Engage in Self Management Med Activities Anxiety Level Calm Cooperation Cooperative Perception Coherent Interest in Health Problem Asks Questions Education Importance Acknowledges Need Smoking Status Never smoker Is Patient Diabetic Yes Functional Assessment Recent Decline in Ability to Perform Denies Any Declines Assistive Device With Patient N/A 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 Laminating Machine Operator to contact place of mormonism No Teaching: Wound Center Diagnostic Tests Ordered -Person Taught Patient Compression Wraps & Stockings -Person Taught Patient Dressing Your Wound -Person Taught Patient Control Swelling with Leg Elevation -Person Taught Patient *Welcome to the Wound Center -Person Taught Patient (a) 1 - _ WC - Nurse 1 - General Ulcer Measurement Start: 02/05/22 08:41 Freq: Status: Active Protocol: Activity Type Activity Date Activity User E-sign Co-sign Detail Recorded Client Recorded Date Recorded By Document 02/05/22 09:10 DL [id number] 02/05/22 09:24 DL 02/05/22 09:10 Wound Center Nurse 1 Edema -Photo Taken Yes -Texture (Ryann-wound Skin Appearance) No Abnormality -Moisture (Ryann-wound Skin Appearance) No Abnormality -Color (Ryann-wound Skin Appearance) No Abnormality, Hemosiderin Staining -Temperature (Ryann-wound Skin No Abnormality Appearance) (Pt Warm) Right Calf (cm) 52 Right Ankle (cm) 30.5 Left Calf (cm) 51.2 Left Ankle (cm) 29.6 - Nurse 3 - General Ulcer D/C NN Start: 02/05/22 08:41 Freq: Status: Active Protocol: Activity Type Activity Date Activity User E-sign Co-sign Detail Recorded Client Recorded Date Recorded By Document 02/05/22 11:51 CARMELLA [id number] 02/05/22 11:51 CARMELLA 02/05/22 11:51 Pain Scale: 0-10 Numeric Is Patient Pain Free? Yes WC - Visit Discharge Discharge Condition Stable Ambulatory Status Ambulatory Transportation Private Auto Assessment/Plan Assessment/Plan (1) Leg swelling: CODE(S): M79.89 - Other specified soft tissue disorders (2) Leg edema: CODE(S): R60.0 - Localized edema (3) Lymphedema: CODE(S): I89.0 - Lymphedema, not elsewhere classified (4) Obesities, morbid: CODE(S): E66.01 - Morbid (severe) obesity due to excess calories (5) Atherosclerosis of coronary artery of [place] heart without angina pectoris: CODE(S): I25.10 - Atherosclerotic heart disease of [place] coronary artery without angina pectoris QUALIFIERS: Coronary Disease-Associated Artery/Lesion type: [place] artery Qualified Code(s): I25.10 - Atherosclerotic heart disease of [place] coronary artery without angina pectoris (6) Old anterior myocardial infarction: CODE(S): I25.2 - Old myocardial infarction (7) History of coronary artery stent placement: CODE(S): Z95.5 - Presence of coronary angioplasty implant and graft (8) Paroxysmal atrial fibrillation: CODE(S): I48.0 - Paroxysmal atrial fibrillation (9) Right bundle branch block: CODE(S): I45.10 - Unspecified right bundle-branch block (10) Hyperlipidemia: CODE(S): E78.5 - Hyperlipidemia, unspecified QUALIFIERS: Hyperlipidemia type: mixed hyperlipidemia Qualified Code(s): E78.2 - Mixed hyperlipidemia (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: CODE(S): Z79.01 - senior living (current) use of anticoagulants (12) Diabetes mellitus: CODE(S): E11.9 - Type 2 diabetes mellitus without complications (13) Cardiomyopathy: CODE(S): I42.9 - Cardiomyopathy, unspecified (14) History of deep vein thrombosis (DVT) of lower extremity: CODE(S): Z86.718 - Personal history of other venous thrombosis and embolism (15) History of pulmonary embolism: CODE(S): Z86.711 - Personal history of pulmonary embolism (16) Hypertension: CODE(S): I10 - Essential (primary) hypertension (17) Obstructive sleep apnea on CPAP: CODE(S): G47.33 - Obstructive sleep apnea (adult) (pediatric); Z99.89 - Dependence on other enabling machines and devices (18) History of total bilateral knee replacement: CODE(S): Z96.653 - Presence of artificial knee joint, bilateral (19) History of coronary artery stent placement: CODE(S): Z95.5 - Presence of coronary angioplasty implant and graft (20) History of cardioversion: CODE(S): Z98.890 - Other specified postprocedural states (21) History of repair of right rotator cuff: CODE(S): Z98.890 - Other specified postprocedural states
--- NOTE | 2022-02-05 13:57 | HP.PCM_ITS ---
History of Present Illness Date of Service: 02/05/22 Chief Complaint: Swelling, edema, and lymphedema in the lower extremities bilaterally History of Wound: This is a 66-year-old morbidly obese white male who presents with swelling, edema, and lymphedema in his lower extremities the patient has a BMI of 40.8. He has multiple pre-existing medical problems. He claims to sleep on a flat surface at night. He either sits or stands throughout the day without much mobility. 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 The swelling in his lower extremities is worse late each day. He is not very mobile, stating that I cannot walk. He suffers from severe Charcot foot deformities, and is under the care of local podiatrists, including Dr. Butler and Dr. Canela. He requires a walker for ambulation. The patient has a history of lower extremity deep vein thrombosis, as well as pulmonary embolism. As a result, he is on lifelong systemic anticoagulation with Eliquis. Also impairing his ambulation is the fact that he has undergone bilateral total knee replacements, which required revision in 2017, and explant of his right total knee replacement with antibiotic spacer placement in 2020. [facility], LATER [facility] Medical History Atherosclerosis of coronary artery of [place] heart without angina pectoris Bifascicular block Cardiomyopathy Cardiomyopathy, ischemic Diabetes mellitus Diabetes mellitus with multiple complications History of cardioversion History of deep vein thrombosis (DVT) of lower extremity History of pulmonary embolism History of ST elevation myocardial infarction (STEMI) (09/2016) Hyperlipidemia Hypertension Leg edema Leg swelling Lymphedema Nonsustained ventricular tachycardia Obesities, morbid Obstructive sleep apnea on CPAP Old anterior myocardial infarction Pre-operative cardiovascular examination Pulmonary embolism, bilateral (2013) Right bundle branch block Sleep apnea Type 2 diabetes mellitus without complications Home Medications aspirin 81 mg tablet,delayed release 81 mg PO DAILY@0800 #30 tabs 10/15/16 [Rx Last Taken 03/26/21] coenzyme Q10 100 mg tablet 100 mg PO DAILY 10/03/20 [History Last Taken Unknown] dapagliflozin 10 mg tablet 10 mg PO DAILY 10/03/20 [History Last Taken 03/26/21] metformin 750 mg tablet,extended release 24 hr 750 mg PO BID 10/03/20 [History Last Taken 03/26/21] multivitamin 1 tab PO QAM 10/03/20 [History Last Taken Unknown] calcium citrate 200 mg (950 mg) tablet 600 mg PO DAILY 12/06/20 [History Last Taken Unknown] cholecalciferol (vitamin D3) 25 mcg (1,000 unit) tablet 1,000 unit PO BID 12/06/20 [History Last Taken Unknown] furosemide 40 mg tablet 40 mg PO DAILY PRN depends on work schedule #90 tabs 02/27/21 [Rx Last Taken Unknown] apixaban 5 mg tablet (Eliquis) 5 mg PO BID #60 tabs 10/04/21 [Rx Last Taken Unknown] atorvastatin 80 mg tablet 80 mg PO QHS #90 tabs 10/04/21 [Rx Last Taken Unknown] carvedilol 6.25 mg tablet 6.25 mg PO BID #180 tabs 10/04/21 [Rx Last Taken Unknown] losartan 50 mg tablet 50 mg PO BID #180 tabs 10/04/21 [Rx Last Taken Unknown] potassium chloride 20 mEq tablet,extended release(part/cryst) (Klor-Con M) 20 meq PO DAILY #90 tabs 10/04/21 [Rx Last Taken Unknown] dapagliflozin 5 mg tablet 5 mg PO DAILY 02/05/22 [History Last Taken Unknown] Allergy/AdvReac Type Severity Reaction Status Date / Time beeswax Allergy Anaphylaxis Verified 02/05/22 09:33 clarithromycin [From Biaxin] AdvReac Other Verified 02/05/22 09:33 Family History Brother CAD (coronary artery disease) Myocardial infarction Father CAD (coronary artery disease) Surgical History H/O knee surgery H/O repair of right rotator cuff History of coronary artery stent placement (11/08/16) History of coronary artery stent placement History of repair of right rotator cuff History of total bilateral knee replacement Social History Smoking Status: Never smoker alcohol intake: never substance use type: does not use caffeine: Yes Type: carbonated beverages Number of servings: 1 what type of physical activity do you participate in: walking frequency: daily duration: other details: active throughout the day seatbelt use: always do you feel safe at home: Yes Vital Signs Vital Signs Vital Signs: 02/05/22 09:10 Temperature 97.4 F L Temperature Source Temporal Pulse Rate 61 Respiratory Rate 22 H Blood Pressure 155/71 H Blood Pressure Mean 99 Blood Pressure Source Monitor Weight Weight: 344 lb 6.242 oz Body Mass Index (BMI) 40.8 Physical Exam Const alert, oriented x3, no apparent distress and well nourished Constitutional Narrative: The patient is morbidly obese, with a BMI of 40.8. General Appearance: cooperative, comfortable, well kempt and well developed Orientation / Consciousness: awake, oriented to person, oriented to place and oriented to time HEENT normocephalic, head/scalp atraumatic and hearing grossly normal bilaterally Head and Scalp: normal to inspection, normocephalic and atraumatic External Ear: external ears normal Eyes PERRL and EOMs intact bilaterally General Eye: normal appearance of both eyes Resp normal respiratory effort, normal air movement, no retractions and no use of accessory muscles Effort and Inspection: able to speak in complete sentences Extremity no calf tenderness General Extremity: Negative for clubbing or cyanosis Skin Wound Narrative: Severe swelling, edema, and lymphedema are noted in the patient's lower extremities bilaterally. The swelling is more severe in the right lower extremity. There are no open wounds or ulcerations. Bilateral Charcot foot deformity is appreciated. Neuro oriented x3, CN's II-XII intact bilaterally and moves all extremities Sensorium / Orientation: awake, alert, oriented to person, oriented to place and oriented to time Psych Appearance: grossly normal and appropriate Attitude: calm Activity / Motor Behavior: appropriate eye contact Speech: normal speech Mood & Affect: euthymic mood Thought Process: normal thought process Thought Content: normal thought content Attention / Concentration: attention grossly intact Debridement Note Debridement Note No debridement was completed: No debridement was completed today (There are no open wounds or ulcerations.) Post-Debridement Measurements and Additional Note: Post-Debridement Measurements/Treatment - Nurse 1 - General Ulcer Assessment Start: 02/05/22 08:41 Freq: Status: Active Protocol: LEXX Activity Type Activity Date Activity User E-sign Co-sign Detail Recorded Client Recorded Date Recorded By Document 02/05/22 09:10 DL [id number] 02/05/22 09:24 DL 07/12/22 09:10 WC - Today's Visit Information Type of service Initial Visit Arrival Mode Ambulatory, Walker Transfer Assistance None Patient Identification Verified (Name & Yes ) Patient Requires Transmission-Based No Precautions Finger Stick Blood Sugar(mg/dl) (if 118 indicated): Blood Sugar Stated by Patient Height and Weight Height 6 ft 5 in Weight 344 lb 6.242 oz Weight in Pounds 344.4 lbs Body Mass Index (BMI) 40.8 BMI Classification Obese BSA - Isacc 2.82 Vital Signs Temperature (97.8 F-99.1 F) 97.4 F L Temperature Source Temporal Pulse Rate (60-100) 61 Pulse Location Monitor Respiratory Rate (12-18) 22 H Respiratory rate source Observation Blood Pressure (90/60-120/80) 155/71 H Blood Pressure Mean 99 Source Monitor History Since Last Visit- (Skip if this is Patient's initial visit) Left Footwear Regular Shoe Right Footwear Regular Shoe Pain Scale: 0-10 Numeric Is Patient Pain Free? Yes Lower Extremity Assessment/ Foot Assessment/ Toe Nail Assessment Left -Posterior Tibial Palpable No -Dorsalis Pedis Palpable No -Extremity Color Normal -Temperature of Extremity Warm -Capillary Refill Less than 3 Seconds -Dependent Rubor No -Blanched when Elevated No -Lipodermatosclerosis No -Other Deformity No -Prior Foot Ulcer No -Charcot Joint Yes -Prior Amputation No -Thick Yes -Discolored Yes -Deformed Yes -Improper Length & Hygeine No Right -Posterior Tibial Palpable No -Dorsalis Pedis Palpable No -Extremity Color Hyperpigmented -Hair Growth on Legs No -Hair Growth on Toes No -Temperature of Extremity Warm -Capillary Refill Less than 3 Seconds -Dependent Rubor No -Blanched when Elevated No -Lipodermatosclerosis No -Other Deformity No -Prior Foot Ulcer No -Prior Amputation No -Thick Yes -Discolored Yes -Deformed Yes -Improper Length & Hygeine No Neuropathy Assessment Feet - Top Side and Bottom <Entered> (a) Communication Assessment Preferred language Indonesian Able to Read No Able to Write No Communication Tools None Right Hearing Abillity Normal Left Hearing Abillity Normal Visual Assistive Devices Glasses Teaching Assessment Preferences Verbal,Written, Demonstration Barriers to Learning None Readiness To Learn Good Willingness to Engage in Self Management Med Activies Readiness to Engage in Self Management Med Activities Anxiety Level Calm Cooperation Cooperative Perception Coherent Interest in Health Problem Asks Questions Education Importance Acknowledges Need Smoking Status Never smoker Is Patient Diabetic Yes Functional Assessment Recent Decline in Ability to Perform Denies Any Declines Assistive Device With Patient N/A Culture/Roman Catholic/Accounting Lecturer Cultural/Roman Catholic Needs that may affect No Treatment Plan Would you allow our hospital project geologist to No meet you for the purpose of spiritual/ emotional support? Accounting Lecturer to contact place of christian No Teaching: Wound Center Diagnostic Tests Ordered -Person Taught Patient Compression Wraps & Stockings -Person Taught Patient Dressing Your Wound -Person Taught Patient Control Swelling with Leg Elevation -Person Taught Patient *Welcome to the Wound Center -Person Taught Patient (a) 1 - _ WC - Nurse 1 - General Ulcer Measurement Start: 02/05/22 08:41 Freq: Status: Active Protocol: Activity Type Activity Date Activity User E-sign Co-sign Detail Recorded Client Recorded Date Recorded By Document 02/05/22 09:10 DL [id number] 02/05/22 09:24 DL 02/05/22 09:10 Wound Center Nurse 1 Edema -Photo Taken Yes -Texture (Ryann-wound Skin Appearance) No Abnormality -Moisture (Ryann-wound Skin Appearance) No Abnormality -Color (Ryann-wound Skin Appearance) No Abnormality, Hemosiderin Staining -Temperature (Ryann-wound Skin No Abnormality Appearance) (Pt Warm) Right Calf (cm) 52 Right Ankle (cm) 30.5 Left Calf (cm) 51.2 Left Ankle (cm) 29.6 - Nurse 3 - General Ulcer D/C NN Start: 02/05/22 08:41 Freq: Status: Active Protocol: Activity Type Activity Date Activity User E-sign Co-sign Detail Recorded Client Recorded Date Recorded By Document 02/05/22 11:51 CARMELLA [id number] 02/05/22 11:51 CARMELLA 02/05/22 11:51 Pain Scale: 0-10 Numeric Is Patient Pain Free? Yes WC - Visit Discharge Discharge Condition Stable Ambulatory Status Ambulatory Transportation Private Auto Assessment/Plan Assessment/Plan (1) Leg swelling: CODE(S): M79.89 - Other specified soft tissue disorders (2) Leg edema: CODE(S): R60.0 - Localized edema (3) Lymphedema: CODE(S): I89.0 - Lymphedema, not elsewhere classified (4) Obesities, morbid: CODE(S): E66.01 - Morbid (severe) obesity due to excess calories (5) Atherosclerosis of coronary artery of [place] heart without angina pectoris: CODE(S): I25.10 - Atherosclerotic heart disease of [place] coronary artery without angina pectoris QUALIFIERS: Coronary Disease-Associated Artery/Lesion type: [place] artery Qualified Code(s): I25.10 - Atherosclerotic heart disease of [place] coronary artery without angina pectoris (6) Old anterior myocardial infarction: CODE(S): I25.2 - Old myocardial infarction (7) History of coronary artery stent placement: CODE(S): Z95.5 - Presence of coronary angioplasty implant and graft (8) Paroxysmal atrial fibrillation: CODE(S): I48.0 - Paroxysmal atrial fibrillation (9) Right bundle branch block: CODE(S): I45.10 - Unspecified right bundle-branch block (10) Hyperlipidemia: CODE(S): E78.5 - Hyperlipidemia, unspecified QUALIFIERS: Hyperlipidemia type: mixed hyperlipidemia Qualified Code(s): E78.2 - Mixed hyperlipidemia (11) half-way current use of anticoagulant: CODE(S): Z79.01 - half-way (current) use of anticoagulants (12) Cardiomyopathy: CODE(S): I42.9 - Cardiomyopathy, unspecified (13) History of deep vein thrombosis (DVT) of lower extremity: CODE(S): Z86.718 - Personal history of other venous thrombosis and embolism (14) History of pulmonary embolism: CODE(S): Z86.711 - Personal history of pulmonary embolism (15) Hypertension: CODE(S): I10 - Essential (primary) hypertension (16) Obstructive sleep apnea on CPAP: CODE(S): G47.33 - Obstructive sleep apnea (adult) (pediatric); Z99.89 - Dependence on other enabling machines and devices (17) History of total bilateral knee replacement: CODE(S): Z96.653 - Presence of artificial knee joint, bilateral (18) History of coronary artery stent placement: CODE(S): Z95.5 - Presence of coronary angioplasty implant and graft (19) History of cardioversion: CODE(S): Z98.890 - Other specified postprocedural states (20) History of repair of right rotator cuff: CODE(S): Z98.890 - Other specified postprocedural states (21) Diabetes mellitus with multiple complications: CODE(S): E11.8 - Type 2 diabetes mellitus with unspecified complications PLAN: Plan This is a morbidly obese, diabetic 66-year-old male who presents with longstanding swelling, edema, and lymphedema in his lower extremities. Patient's mobility is extremely limited due to his Charcot foot deformities, bilateral knee replacement surgeries, morbid obesity, etc. As result, the patient sits or stands for prolonged periods each day, without efforts to elevate his lower extremities. He sleeps on a flat surface at night. He is currently wearing graduated compression stockings of 20 to 30 mmHg compression on a daily basis. This has been encouraged to continue. Patient has been advised to elevate his lower extremities, even during daytime hours. Elevation is to be to heart level, or higher. He is to elevate his lower extremities during the day as much as possible. Prolonged idle standing and sitting has been discouraged. Activity has been encouraged, though it is unlikely to be enhanced to any significant degree due to pre-existing conditions. Weight loss has been recommended. While the patient claims to don graduated compression stockings of 20 to 30 mmHg compression each day, he admits the difficulty in doing so. Velcro compression garments may prove to be a more satisfactory option. Furthermore, we are to seek approval for pneumatic mechanical compression pumps, which the patient can use daily, to enhance venous and lymphatic return, and diminish swelling and edema. The patient appears to have good understanding of the recommendations. He is to return in 2 weeks for reexamination. Total time: 60 minutes
== END 2022-02-24 23:59 | disposition home or self-care (01) ==
LOC: WC 08:27
PROVIDERS: Visit Provider Surgery
DX: M79.89 Other specified soft tissue disorders (principal); E11.610 Type 2 diabetes mellitus with diabetic neuropathic arthropathy; I48.0 Paroxysmal atrial fibrillation; E66.01 Morbid (severe) obesity due to excess calories; Z68.41 Body mass index [BMI] 40.0-44.9, adult; R60.0 Localized edema; I25.5 Ischemic cardiomyopathy; I25.10 Atherosclerotic heart disease of native coronary artery without angina pectoris; I10 Essential (primary) hypertension; I45.10 Unspecified right bundle-branch block; I89.0 Lymphedema, not elsewhere classified; E78.2 Mixed hyperlipidemia; G47.33 Obstructive sleep apnea (adult) (pediatric); Z79.82 Long term (current) use of aspirin; Z79.01 Long term (current) use of anticoagulants; Z79.84 Long term (current) use of oral hypoglycemic drugs; I25.2 Old myocardial infarction; Z86.718 Personal history of other venous thrombosis and embolism; Z86.711 Personal history of pulmonary embolism; Z95.5 Presence of coronary angioplasty implant and graft; Z96.653 Presence of artificial knee joint, bilateral
CPT/HCPCS: 99213; G0463

== ENCOUNTER → 2022-06-13 | Outpatient (CLI) | payer MEDICARE, OTHER, SELFPAY ==
[2016-11-08 15:12] VITALS: BMI 44.6
[2022-06-13 11:24] LABS: Hemoglobin A1c 6.8 % (3.8-5.6)
[2022-06-13 11:26] LABS: ALB/GLOB Ratio 0.9 RATIO (0.9-2.4); AST(SGOT) 6 U/L (15-37); Alanine Aminotransfer ALT/SGPT 19 U/L (16-61); Albumin, Serum 3.5 g/dL (3.2-5.0); Alkaline Phosphatase 88 U/L (45-117); Anion Gap 5 (5-15); BUN 17 mg/dL (7-18); BUN/Creat Ratio 25.5 RATIO (10-20); Bilirubin, Direct 0.25 mg/dL (0.00-0.30); CRP 3.52 mg/L (0.0-3.0); Calcium,Total 9.4 mg/dL (8.5-10.1); Chloride 105 mmol/L (98-107); Cholesterol 161 mg/dL (200); Creatinine, Serum 0.67 mg/dL (0.70-1.30); EST Glomerular Filtration Rate 127 mL/min (>60); Est Glom Filt Rate - Afr Amer 154 mL/min (>60); Globulin 3.9 g/dL (2.2-4.2); Glucose 138 mg/dL (74-106); High Density Lipoprotein 61 mg/dL; PSA,Total - Annual Screen 5.44 ng/mL (0.00-4.00); Potassium 4.7 mmol/L (3.5-5.1); Protein, Total 7.4 g/dL (6.4-8.2); Sodium Level 139 mmol/L (136-145); Thyroid Stim Hormone (TSH) 1.29 uIU/mL (0.358-3.74); Triglycerides 107 mg/dL; Very Low Density Lipoprotein 21 mg/dL (5-40)
[2022-06-13 11:28] LABS: Erythrocyte Sedimentation Rate 28 mm/hr (0-20)
[2022-06-13 11:29] LABS: Absolute Lymphocyte Count 1.66 X10^3/uL (0.83-4.51); Absolute Neutrophil Count 4.9 X10^3/uL (2.0-7.7); Basophil# 0.06 X10^3/uL; Basophil% 0.8 % (0-1); Eosinophil# 0.19 X10^3/uL; Eosinophils% 2.5 % (0-5); Hematocrit 47.1 % (40-54); Lymphocyte # 1.66 X10^3/ul (0.83-4.51); Lymphocyte % 22.2 % (19-41); Mean Corp Hgb Conc 29.7 g/dL (32-36); Mean Corpuscular Volume 87.4 fL (80-94); Mean Platelet Vol. 10.3 fl (6.2-12.0); Monocyte# 0.64 X10^3/uL; Monocyte% 8.5 % (0-10); NRBC Flagged by Analyzer 0 % (0-5); Neutrophil # 4.86 X10^3/uL (2.7-7.7); Neutrophil % 64.9 % (47-70); Platelet Count 322 K/mm3 (150-450); RBC Distribution Width CV 16.5 % (11.6-14.6); RBC Distribution Width SD 51.8 fl (35.1-43.9); Red Blood Count 5.39 M/mm3 (4.6-6.2); White Blood Count 7.5 K/mm3 (4.4-11.0)
[2022-06-13 12:20] LABS: Vitamin D,25 Hydroxy 54.4 ng/mL
== END | disposition home or self-care (01) ==
LOC: LAB 09:25
PROVIDERS: Referring Provider Internal Medicine Cardiovascular Disease; Visit Provider Internal Medicine Cardiovascular Disease
DX: E11.9 Type 2 diabetes mellitus without complications (principal); I10 Essential (primary) hypertension; E78.5 Hyperlipidemia, unspecified; E55.9 Vitamin D deficiency, unspecified; Z12.5 Encounter for screening for malignant neoplasm of prostate; Z96.651 Presence of right artificial knee joint
CPT/HCPCS: 80053; 80061; 82248; 82306; 83036; 84153; 84443; 85025; 85652; 86140; G0103

== ENCOUNTER 2022-08-19 16:30 | Outpatient (CLI) | payer MEDICARE, OTHER, SELFPAY ==
[2016-11-08 15:12] VITALS: BMI 44.6
[2022-08-19 17:00] LABS: Erythrocyte Sedimentation Rate 28 mm/hr (0-20)
[2022-08-19 17:03] LABS: Absolute Lymphocyte Count 1.16 X10^3/uL (0.83-4.51); Absolute Neutrophil Count 3.2 X10^3/uL (2.0-7.7); Basophil# 0.03 X10^3/uL; Basophil% 0.6 % (0-1); Eosinophil# 0.32 X10^3/uL; Eosinophils% 6.2 % (0-5); Hematocrit 39.4 % (40-54); Hemoglobin 12.3 g/dL (13.0-16.5); Lymphocyte # 1.16 X10^3/ul (0.83-4.51); Lymphocyte % 22.4 % (19-41); Mean Corp Hgb Conc 31.2 g/dL (32-36); Mean Corpuscular Hgb 27.3 pg (27.0-32.0); Mean Corpuscular Volume 87.4 fL (80-94); Monocyte# 0.49 X10^3/uL; Monocyte% 9.4 % (0-10); NRBC Flagged by Analyzer 0 % (0-5); Neutrophil # 3.17 X10^3/uL (2.7-7.7); Platelet Count 220 K/mm3 (150-450); RBC Distribution Width CV 15.5 % (11.6-14.6); RBC Distribution Width SD 49.1 fl (35.1-43.9); Red Blood Count 4.51 M/mm3 (4.6-6.2); White Blood Count 5.2 K/mm3 (4.4-11.0)
[2022-08-19 17:11] LABS: CRP < 2.90 mg/L (0.0-3.0); EST Glomerular Filtration Rate 144 mL/min (>60); Est Glom Filt Rate - Afr Amer 175 mL/min (>60)
== END 2022-08-19 23:59 | disposition home or self-care (01) ==
LOC: LABSPEC 16:36
DX: T84.53XD Infection and inflammatory reaction due to internal right knee prosthesis, subsequent encounter (principal)
CPT/HCPCS: 82565; 85025; 85652; 86140

== ENCOUNTER → 2022-08-26 | Outpatient (CLI) | payer MEDICARE, OTHER, SELFPAY ==
[2016-11-08 15:12] VITALS: BMI 44.6
[2022-08-26 16:45] LABS: CRP < 2.90 mg/L (0.0-3.0); Creatinine, Serum 0.65 mg/dL (0.70-1.30); EST Glomerular Filtration Rate 131 mL/min (>60); Est Glom Filt Rate - Afr Amer 159 mL/min (>60)
== END | disposition home or self-care (01) ==
DX: T84.53XA Infection and inflammatory reaction due to internal right knee prosthesis, initial encounter (principal); B96.1 Klebsiella pneumoniae [K. pneumoniae] as the cause of diseases classified elsewhere
CPT/HCPCS: 82565; 86140

== ENCOUNTER 2022-08-27 10:37 | Outpatient (CLI) | payer MEDICARE, OTHER, SELFPAY ==
[2016-11-08 15:12] VITALS: BMI 44.6
[2022-08-27 10:52] LABS: Absolute Lymphocyte Count 0.92 X10^3/uL (0.83-4.51); Absolute Neutrophil Count 3.3 X10^3/uL (2.0-7.7); Basophil# 0.05 X10^3/uL; Eosinophil# 0.25 X10^3/uL; Eosinophils% 5.1 % (0-5); Hematocrit 41.3 % (40-54); Lymphocyte # 0.92 X10^3/ul (0.83-4.51); Lymphocyte % 18.6 % (19-41); Mean Corp Hgb Conc 31.5 g/dL (32-36); Mean Corpuscular Hgb 27.3 pg (27.0-32.0); Mean Corpuscular Volume 86.8 fL (80-94); Mean Platelet Vol. 10.9 fl (6.2-12.0); Monocyte# 0.45 X10^3/uL; Monocyte% 9.1 % (0-10); NRBC Flagged by Analyzer 0 % (0-5); Neutrophil # 3.26 X10^3/uL (2.7-7.7); Neutrophil % 65.8 % (47-70); Platelet Count 222 K/mm3 (150-450); RBC Distribution Width CV 15.3 % (11.6-14.6); RBC Distribution Width SD 48.9 fl (35.1-43.9); Red Blood Count 4.76 M/mm3 (4.6-6.2)
== END 2022-08-27 23:59 | disposition home or self-care (01) ==
LOC: LABSPEC 10:41
DX: T84.54XA Infection and inflammatory reaction due to internal left knee prosthesis, initial encounter (principal)
CPT/HCPCS: 85025

== ENCOUNTER → 2022-09-16 | Outpatient (CLI) | payer MEDICARE, OTHER, SELFPAY ==
[2016-11-08 15:12] VITALS: BMI 44.6
[2022-09-16 11:43] LABS: Creatinine, Serum 0.47 mg/dL (0.70-1.30); EST Glomerular Filtration Rate 189 mL/min (>60); Est Glom Filt Rate - Afr Amer 228 mL/min (>60)
[2022-09-16 11:44] LABS: Erythrocyte Sedimentation Rate 31 mm/hr (0-20)
[2022-09-16 11:45] LABS: Hematocrit 27.8 % (40-54); Hemoglobin 8.8 g/dL (13.0-16.5); Mean Corp Hgb Conc 31.7 g/dL (32-36); Mean Corpuscular Hgb 27.2 pg (27.0-32.0); Mean Corpuscular Volume 86.1 fL (80-94); Mean Platelet Vol. 10.5 fl (6.2-12.0); Platelet Count 146 K/mm3 (150-450); RBC Distribution Width CV 14.8 % (11.6-14.6); Red Blood Count 3.23 M/mm3 (4.6-6.2); White Blood Count 2.1 K/mm3 (4.4-11.0)
== END | disposition home or self-care (01) ==
LOC: LABSPEC 11:14
DX: I10 Essential (primary) hypertension (principal); D64.9 Anemia, unspecified; Z79.2 Long term (current) use of antibiotics
CPT/HCPCS: 82565; 85027; 85652; 86140

== ENCOUNTER → 2022-09-23 | Outpatient (CLI) | payer MEDICARE, OTHER, SELFPAY ==
[2016-11-08 15:12] VITALS: BMI 44.6
[2022-09-23 13:56] LABS: Hematocrit 29.9 % (40-54); Hemoglobin 9.5 g/dL (13.0-16.5); Mean Corp Hgb Conc 31.8 g/dL (32-36); Mean Corpuscular Hgb 26.7 pg (27.0-32.0); Mean Platelet Vol. 10.1 fl (6.2-12.0); Platelet Count 278 K/mm3 (150-450); RBC Distribution Width CV 14.8 % (11.6-14.6); Red Blood Count 3.56 M/mm3 (4.6-6.2); White Blood Count 3.6 K/mm3 (4.4-11.0)
[2022-09-23 14:01] LABS: Erythrocyte Sedimentation Rate 52 mm/hr (0-20)
[2022-09-23 14:20] LABS: Creatinine, Serum 0.75 mg/dL (0.70-1.30); EST Glomerular Filtration Rate 111 mL/min (>60); Est Glom Filt Rate - Afr Amer 135 mL/min (>60)
== END | disposition home or self-care (01) ==
LOC: LABSPEC 13:27
DX: T84.53XD Infection and inflammatory reaction due to internal right knee prosthesis, subsequent encounter (principal)
CPT/HCPCS: 82565; 85027; 85652; 86140

== ENCOUNTER → 2022-09-27 | Outpatient (CLI) | payer MEDICARE, OTHER, SELFPAY ==
[2016-11-08 15:12] VITALS: BMI 44.6
[2022-09-27 11:02] VITALS: BP 121/69; PULSE 78; RESP 16; TEMP 36.3; O2SAT 100
[2022-09-27] MEDS: 0.9% NaCl PICC Flush IV ×2 (11:11→12:17)
[2022-09-27] MEDS: 0.9% NaCl IVPB Med Flush (250 mL) 15 ML IV (11:11)
== END | disposition home or self-care (01) ==
DX: T84.59XD Infection and inflammatory reaction due to other internal joint prosthesis, subsequent encounter (principal); Z22.39 Carrier of other specified bacterial diseases
CPT/HCPCS: 96365; 96368; J0878; J7050; A4216; J0696; J3490

== ENCOUNTER → 2022-10-08 | Outpatient (CLI) | payer MEDICARE, OTHER, SELFPAY ==
[2016-11-08 15:12] VITALS: BMI 44.6
[2022-10-08 13:05] LABS: Absolute Lymphocyte Count 1.04 X10^3/uL (0.83-4.51); Absolute Neutrophil Count 3.5 X10^3/uL (2.0-7.7); Basophil# 0.05 X10^3/uL; Basophil% 0.9 % (0-1); Eosinophil# 0.19 X10^3/uL; Eosinophils% 3.5 % (0-5); Hemoglobin 9.9 g/dL (13.0-16.5); Lymphocyte # 1.04 X10^3/ul (0.83-4.51); Lymphocyte % 19.3 % (19-41); Mean Corpuscular Volume 83.3 fL (80-94); Mean Platelet Vol. 10.2 fl (6.2-12.0); Monocyte# 0.56 X10^3/uL; Monocyte% 10.4 % (0-10); NRBC Flagged by Analyzer 0 % (0-5); Neutrophil # 3.48 X10^3/uL (2.7-7.7); Neutrophil % 64.6 % (47-70); Platelet Count 364 K/mm3 (150-450); RBC Distribution Width CV 15.3 % (11.6-14.6); RBC Distribution Width SD 46.4 fl (35.1-43.9); Red Blood Count 3.96 M/mm3 (4.6-6.2); White Blood Count 5.4 K/mm3 (4.4-11.0)
[2022-10-08 13:07] LABS: Erythrocyte Sedimentation Rate 55 mm/hr (0-20)
[2022-10-08 13:29] LABS: CPK Total, Creatine Kinase 20 U/L (39-308); Creatinine, Serum 0.66 mg/dL (0.70-1.30); EST Glomerular Filtration Rate 128 mL/min (>60); Est Glom Filt Rate - Afr Amer 155 mL/min (>60)
== END | disposition home or self-care (01) ==
LOC: LABSPEC 12:55
DX: T84.59XD Infection and inflammatory reaction due to other internal joint prosthesis, subsequent encounter (principal); Z22.39 Carrier of other specified bacterial diseases
CPT/HCPCS: 82550; 82565; 85025; 85652; 86140

== ENCOUNTER → 2022-10-23 | Outpatient (CLI) | payer MEDICARE, OTHER, SELFPAY ==
[2016-11-08 15:12] VITALS: BMI 44.6
[2022-10-23 12:28] LABS: Erythrocyte Sedimentation Rate 42 mm/hr (0-20)
[2022-10-23 12:37] LABS: Absolute Lymphocyte Count 1.01 X10^3/uL (0.83-4.51); Absolute Neutrophil Count 3.8 X10^3/uL (2.0-7.7); Basophil# 0.03 X10^3/uL; Basophil% 0.5 % (0-1); Eosinophils% 3.5 % (0-5); Hematocrit 34.9 % (40-54); Hemoglobin 10.5 g/dL (13.0-16.5); Lymphocyte # 1.01 X10^3/ul (0.83-4.51); Lymphocyte % 17.8 % (19-41); Mean Corp Hgb Conc 30.1 g/dL (32-36); Mean Corpuscular Hgb 24.8 pg (27.0-32.0); Mean Corpuscular Volume 82.5 fL (80-94); Mean Platelet Vol. 10.7 fl (6.2-12.0); Monocyte# 0.65 X10^3/uL; Monocyte% 11.5 % (0-10); NRBC Flagged by Analyzer 0 % (0-5); Neutrophil # 3.76 X10^3/uL (2.7-7.7); Neutrophil % 66.3 % (47-70); Platelet Count 301 K/mm3 (150-450); RBC Distribution Width CV 15.9 % (11.6-14.6); RBC Distribution Width SD 47.9 fl (35.1-43.9); Red Blood Count 4.23 M/mm3 (4.6-6.2); White Blood Count 5.7 K/mm3 (4.4-11.0)
[2022-10-23 12:39] LABS: CPK Total, Creatine Kinase 24 U/L (39-308); Creatinine, Serum 0.67 mg/dL (0.70-1.30); EST Glomerular Filtration Rate 126 mL/min (>60); Est Glom Filt Rate - Afr Amer 152 mL/min (>60)
== END | disposition home or self-care (01) ==
DX: T84.53XD Infection and inflammatory reaction due to internal right knee prosthesis, subsequent encounter (principal); Z22.39 Carrier of other specified bacterial diseases; X58.XXXA Exposure to other specified factors, initial encounter
CPT/HCPCS: 82550; 82565; 85025; 85652; 86140

== ENCOUNTER → 2022-11-05 | Outpatient (CLI) | payer MEDICARE, OTHER, SELFPAY ==
[2016-11-08 15:12] VITALS: BMI 44.6
[2022-11-05 11:10] LABS: Erythrocyte Sedimentation Rate 51 mm/hr (0-20)
[2022-11-05 11:13] LABS: Absolute Lymphocyte Count 0.87 X10^3/uL (0.83-4.51); Absolute Neutrophil Count 3.3 X10^3/uL (2.0-7.7); Basophil# 0.04 X10^3/uL; Basophil% 0.8 % (0-1); Eosinophil# 0.35 X10^3/uL; Eosinophils% 6.9 % (0-5); Hematocrit 33.3 % (40-54); Hemoglobin 9.9 g/dL (13.0-16.5); Lymphocyte # 0.87 X10^3/ul (0.83-4.51); Lymphocyte % 17.3 % (19-41); Mean Corp Hgb Conc 29.7 g/dL (32-36); Mean Corpuscular Hgb 23.9 pg (27.0-32.0); Mean Corpuscular Volume 80.4 fL (80-94); Mean Platelet Vol. 10.5 fl (6.2-12.0); Monocyte# 0.48 X10^3/uL; Monocyte% 9.5 % (0-10); NRBC Flagged by Analyzer 0 % (0-5); Neutrophil # 3.28 X10^3/uL (2.7-7.7); Neutrophil % 65.1 % (47-70); Platelet Count 281 K/mm3 (150-450); RBC Distribution Width CV 15.8 % (11.6-14.6); RBC Distribution Width SD 46.1 fl (35.1-43.9); Red Blood Count 4.14 M/mm3 (4.6-6.2)
[2022-11-05 11:38] LABS: CPK Total, Creatine Kinase 39 U/L (39-308); EST Glomerular Filtration Rate 143 mL/min (>60); Est Glom Filt Rate - Afr Amer 173 mL/min (>60)
== END | disposition home or self-care (01) ==
DX: T84.53XD Infection and inflammatory reaction due to internal right knee prosthesis, subsequent encounter (principal)
CPT/HCPCS: 82550; 82565; 85025; 85652; 86140

== ENCOUNTER → 2023-03-29 | Outpatient (CLI) | payer MEDICARE, OTHER, SELFPAY ==
[2016-11-08 15:12] VITALS: BMI 44.6
[2023-03-29 10:09] LABS: Absolute Lymphocyte Count 1.05 X10^3/uL (0.83-4.51); Absolute Neutrophil Count 2.9 X10^3/uL (2.0-7.7); Basophil# 0.03 X10^3/uL; Basophil% 0.6 % (0-1); Eosinophil# 0.26 X10^3/uL; Eosinophils% 5.5 % (0-5); Hematocrit 37.3 % (40-54); Hemoglobin 11.1 g/dL (13.0-16.5); Lymphocyte # 1.05 X10^3/ul (0.83-4.51); Lymphocyte % 22.2 % (19-41); Mean Corp Hgb Conc 29.8 g/dL (32-36); Mean Corpuscular Hgb 24.9 pg (27.0-32.0); Mean Corpuscular Volume 83.8 fL (80-94); Mean Platelet Vol. 9.9 fl (6.2-12.0); Monocyte# 0.46 X10^3/uL; Monocyte% 9.7 % (0-10); NRBC Flagged by Analyzer 0 % (0-5); Neutrophil # 2.92 X10^3/uL (2.7-7.7); Neutrophil % 61.6 % (47-70); Platelet Count 230 K/mm3 (150-450); RBC Distribution Width CV 17.3 % (11.6-14.6); RBC Distribution Width SD 52.8 fl (35.1-43.9); Red Blood Count 4.45 M/mm3 (4.6-6.2); White Blood Count 4.7 K/mm3 (4.4-11.0)
[2023-03-29 10:46] LABS: ALB/GLOB Ratio 0.9 RATIO (0.9-2.4); AST(SGOT) 7 U/L (15-37); Alanine Aminotransfer ALT/SGPT 11 U/L (16-61); Albumin, Serum 3.1 g/dL (3.2-5.0); Alkaline Phosphatase 86 U/L (45-117); Anion Gap 8 (5-15); BUN 17 mg/dL (7-18); BUN/Creat Ratio 26.2 RATIO (10-20); Bilirubin, Direct 0.16 mg/dL (0.00-0.30); Calcium,Total 8.8 mg/dL (8.5-10.1); Chloride 108 mmol/L (98-107); Cholesterol 127 mg/dL (200); Creatinine, Serum 0.65 mg/dL (0.70-1.30); EST Glomerular Filtration Rate 131 mL/min (>60); Est Glom Filt Rate - Afr Amer 158 mL/min (>60); Globulin 3.4 g/dL (2.2-4.2); Glucose 124 mg/dL (74-106); High Density Lipoprotein 43 mg/dL; Phosphorus 3.7 mg/dL (2.5-4.9); Potassium 4.3 mmol/L (3.5-5.1); Protein, Total 6.5 g/dL (6.4-8.2); Sodium Level 141 mmol/L (136-145); Thyroid Stim Hormone (TSH) 1.84 uIU/mL (0.358-3.74); Triglycerides 112 mg/dL; Very Low Density Lipoprotein 22 mg/dL (5-40)
[2023-03-29 11:36] LABS: Erythrocyte Sedimentation Rate 34 mm/hr (0-20)
[2023-03-29 11:39] LABS: Hemoglobin A1c 6.7 % (3.8-5.6)
[2023-04-01 14:47] LABS: Vitamin D,25 Hydroxy 41.6 ng/mL
== END | disposition home or self-care (01) ==
LOC: MTLAB 09:11 → LAB 09:12
PROVIDERS: Nurse Practitioner Family
DX: T84.59XD Infection and inflammatory reaction due to other internal joint prosthesis, subsequent encounter (principal); E11.9 Type 2 diabetes mellitus without complications; E55.9 Vitamin D deficiency, unspecified; Z22.39 Carrier of other specified bacterial diseases
CPT/HCPCS: 80053; 80061; 82248; 82306; 83036; 84100; 84443; 85025; 85652; 86140

== ENCOUNTER → 2023-06-05 | Outpatient (CLI) | payer MEDICARE, OTHER, SELFPAY ==
[2016-11-08 15:12] VITALS: BMI 44.6
[2023-06-05 09:48] LABS: Albumin, Serum 3.5 g/dL (3.2-5.0); BUN 24 mg/dL (7-18); BUN/Creat Ratio 28.5 RATIO (10-20); CRP 5.89 mg/L (0.0-3.0); Calcium,Total 9.3 mg/dL (8.5-10.1); Chloride 107 mmol/L (98-107); Creatinine, Serum 0.84 mg/dL (0.70-1.30); EST Glomerular Filtration Rate 97 mL/min (>60); Est Glom Filt Rate - Afr Amer 117 mL/min (>60); Glucose 211 mg/dL (74-106); Phosphorus 3.5 mg/dL (2.5-4.9); Potassium 4.5 mmol/L (3.5-5.1); Sodium Level 136 mmol/L (136-145)
[2023-06-05 09:49] LABS: Erythrocyte Sedimentation Rate 37 mm/hr (0-20)
[2023-06-05 09:52] LABS: Absolute Lymphocyte Count 1.17 X10^3/uL (0.83-4.51); Absolute Neutrophil Count 4.5 X10^3/uL (2.0-7.7); Basophil# 0.02 X10^3/uL; Basophil% 0.3 % (0-1); Eosinophils% 3.1 % (0-5); Hematocrit 43.7 % (40-54); Hemoglobin 13.3 g/dL (13.0-16.5); Lymphocyte # 1.17 X10^3/ul (0.83-4.51); Lymphocyte % 18.3 % (19-41); Mean Corp Hgb Conc 30.4 g/dL (32-36); Mean Corpuscular Hgb 24.9 pg (27.0-32.0); Mean Corpuscular Volume 81.8 fL (80-94); Monocyte# 0.47 X10^3/uL; Monocyte% 7.3 % (0-10); NRBC Flagged by Analyzer 0 % (0-5); Neutrophil # 4.52 X10^3/uL (2.7-7.7); Neutrophil % 70.7 % (47-70); Platelet Count 258 K/mm3 (150-450); RBC Distribution Width CV 16.5 % (11.6-14.6); RBC Distribution Width SD 48.6 fl (35.1-43.9); Red Blood Count 5.34 M/mm3 (4.6-6.2); White Blood Count 6.4 K/mm3 (4.4-11.0)
== END | disposition home or self-care (01) ==
LOC: LAB 09:23
DX: T84.53XD Infection and inflammatory reaction due to internal right knee prosthesis, subsequent encounter (principal); X58.XXXD Exposure to other specified factors, subsequent encounter
CPT/HCPCS: 36415; 80069; 85025; 85652; 86140

== ENCOUNTER → 2023-07-08 | Outpatient (CLI) | payer MEDICARE, OTHER, SELFPAY ==
[2016-11-08 15:12] VITALS: BMI 44.6
[2023-07-08 11:35] LABS: Absolute Lymphocyte Count 1.09 X10^3/uL (0.83-4.51); Absolute Neutrophil Count 4.3 X10^3/uL (2.0-7.7); Basophil# 0.03 X10^3/uL; Basophil% 0.5 % (0-1); Eosinophil# 0.24 X10^3/uL; Eosinophils% 3.9 % (0-5); Hematocrit 42.1 % (40-54); Hemoglobin 12.7 g/dL (13.0-16.5); Lymphocyte # 1.09 X10^3/ul (0.83-4.51); Lymphocyte % 17.8 % (19-41); Mean Corp Hgb Conc 30.2 g/dL (32-36); Mean Corpuscular Hgb 24.9 pg (27.0-32.0); Mean Corpuscular Volume 82.5 fL (80-94); Mean Platelet Vol. 10.3 fl (6.2-12.0); Monocyte# 0.46 X10^3/uL; Monocyte% 7.5 % (0-10); NRBC Flagged by Analyzer 0 % (0-5); Neutrophil # 4.26 X10^3/uL (2.7-7.7); Neutrophil % 69.8 % (47-70); Platelet Count 268 K/mm3 (150-450); RBC Distribution Width CV 16.8 % (11.6-14.6); RBC Distribution Width SD 50.1 fl (35.1-43.9); White Blood Count 6.1 K/mm3 (4.4-11.0)
[2023-07-08 11:42] LABS: Erythrocyte Sedimentation Rate 26 mm/hr (0-20)
[2023-07-08 12:12] LABS: Albumin, Serum 3.2 g/dL (3.2-5.0); BUN 20 mg/dL (7-18); BUN/Creat Ratio 26.8 RATIO (10-20); Calcium,Total 8.7 mg/dL (8.5-10.1); Chloride 109 mmol/L (98-107); Creatinine, Serum 0.75 mg/dL (0.70-1.30); EST Glomerular Filtration Rate 111 mL/min (>60); Est Glom Filt Rate - Afr Amer 135 mL/min (>60); Glucose 178 mg/dL (74-106); Phosphorus 3.8 mg/dL (2.5-4.9); Potassium 4.5 mmol/L (3.5-5.1); Sodium Level 140 mmol/L (136-145)
== END | disposition home or self-care (01) ==
LOC: LAB 10:45
DX: T84.53XD Infection and inflammatory reaction due to internal right knee prosthesis, subsequent encounter (principal); X58.XXXA Exposure to other specified factors, initial encounter
CPT/HCPCS: 36415; 80069; 85025; 85652; 86140

== ENCOUNTER → 2024-01-07 | Outpatient (CLI) | payer MEDICARE, OTHER, SELFPAY ==
[2016-11-08 15:12] VITALS: BMI 44.6
[2024-01-07 10:53] LABS: Absolute Lymphocyte Count 1.22 X10^3/uL (0.83-4.51); Absolute Neutrophil Count 2.6 X10^3/uL (2.0-7.7); Basophil# 0.03 X10^3/uL; Basophil% 0.7 % (0-1); Eosinophils% 4.4 % (0-5); Hematocrit 34.1 % (40-54); Hemoglobin 10.6 g/dL (13.0-16.5); Lymphocyte # 1.22 X10^3/ul (0.83-4.51); Lymphocyte % 26.9 % (19-41); Mean Corp Hgb Conc 31.1 g/dL (32-36); Mean Corpuscular Hgb 26.1 pg (27.0-32.0); Mean Platelet Vol. 9.8 fl (6.2-12.0); Monocyte# 0.49 X10^3/uL; Monocyte% 10.8 % (0-10); NRBC Flagged by Analyzer 0 % (0-5); Neutrophil # 2.58 X10^3/uL (2.7-7.7); Neutrophil % 56.8 % (47-70); Platelet Count 250 K/mm3 (150-450); RBC Distribution Width CV 17.4 % (11.6-14.6); RBC Distribution Width SD 53.1 fl (35.1-43.9); Red Blood Count 4.06 M/mm3 (4.6-6.2); White Blood Count 4.5 K/mm3 (4.4-11.0)
[2024-01-07 10:55] LABS: Erythrocyte Sedimentation Rate 24 mm/hr (0-20)
[2024-01-07 11:46] LABS: Vitamin D,25 Hydroxy 43.7 ng/mL
[2024-01-07 12:57] LABS: AST(SGOT) 11 U/L (15-37); Alanine Aminotransfer ALT/SGPT 15 U/L (16-61); Albumin, Serum 3.3 g/dL (3.2-5.0); Alkaline Phosphatase 82 U/L (45-117); Anion Gap 7 (5-15); BUN 23 mg/dL (7-18); BUN/Creat Ratio 30.1 RATIO (10-20); Calcium,Total 9.2 mg/dL (8.5-10.1); Chloride 110 mmol/L (98-107); Cholesterol 123 mg/dL (200); Creatinine, Serum 0.76 mg/dL (0.70-1.30); EST Glomerular Filtration Rate 108 mL/min (>60); Est Glom Filt Rate - Afr Amer 131 mL/min (>60); Globulin 3.4 g/dL (2.2-4.2); Glucose 124 mg/dL (74-106); High Density Lipoprotein 41 mg/dL; PSA,Total - Annual Screen 3.39 ng/mL (0.00-4.00); Phosphorus 3.3 mg/dL (2.5-4.9); Potassium 4.2 mmol/L (3.5-5.1); Protein, Total 6.7 g/dL (6.4-8.2); Sodium Level 138 mmol/L (136-145); Thyroid Stim Hormone (TSH) 1.37 uIU/mL (0.358-3.74); Triglycerides 111 mg/dL; Very Low Density Lipoprotein 22 mg/dL (5-40)
== END | disposition home or self-care (01) ==
DX: E55.9 Vitamin D deficiency, unspecified (principal); E11.9 Type 2 diabetes mellitus without complications; Z12.5 Encounter for screening for malignant neoplasm of prostate
CPT/HCPCS: 36415; 80053; 80061; 82306; 84100; 84153; 84443; 85025; 85652; 86140; G0103

== ENCOUNTER 2024-05-24 08:34 | Inpatient (IN) | payer MEDICARE, OTHER, SELFPAY ==
[2016-11-08 15:12] VITALS: BMI 44.6
[2024-05-24] VITALS (15 sets, daily range): BP systolic 84–148; BP diastolic 41–71; PULSE 85–101; RESP 12–18; TEMP 36.2–37.1; O2SAT 92–100; BMI 42.4
--- NOTE | 2024-05-24 08:51 | CT_ITS ---
STUDY: CT ABDOMEN AND PELVIS WITH CONTRAST REASON FOR EXAM: Male, 68 years old. Abdominal pain, rectal bleeding RADIATION DOSAGE (If Supplied By Facility): CTDIvol = ( 25.39 ) mGy, DLP = ( 1494.88 ) mGycm TECHNIQUE: Transaxial images were obtained from the dome of the diaphragm to the symphysis pubis without oral contrast. IV 75mL Isovue-300 was administered. Sagittal and coronal images were reconstructed. Individualized dose optimization techniques were used for this CT. COMPARISON: None. FINDINGS: The visualized lung bases are unremarkable. Coronary calcification. Normal liver. Normal gallbladder and extrahepatic biliary system. There is a benign calcified granuloma of the spleen. Sigmoid diverticulosis. Right renal cyst. Normal pancreas. Normal bilateral adrenal glands. There is a 2.8 sorry by 2.5 cm cyst in the anterior midportion of the right kidney. Normal left kidney. Fluid distention of the stomach. Heterogeneous density is seen along the dependent portion of the fundal portion of the stomach. With the patient''s history of bleeding, this may represent a polypoid lesion. Correlation with the endoscopy is recommended. Normal small intestine. There are scattered colonic diverticula consistent with diverticulosis. The appendix is visualized and appears normal. There is scattered atherosclerotic calcification of the abdominal aorta, without a demonstrated aneurysm. Normal inferior vena cava. Normal retroperitoneum. Normal urinary bladder. Small bilateral nodular areas containing fat slightly more prominent on the right side. There are diffuse degenerative changes of the visualized lumbar spine. Straightening of the normal lumbar lordosis. CT/Abdomen/Pelvis W IV Cont ONLY IMPRESSION: Fluid distended stomach with the soft tissue density along the dependent portion of the fundal portion of the stomach. A polypoid lesion should be ruled out. Electronically Signed: Adis Penny MD at 10:16 EDT ,
[2024-05-24] MEDS: 0.9% Normal Saline (1000mL) 1,000 ML 999 ML IV ×2 (08:56→09:41)
[2024-05-24 09:01] LABS: Absolute Lymphocyte Count 1.42 X10^3/uL (0.83-4.51); Absolute Neutrophil Count 8.1 X10^3/uL (2.0-7.7); Basophil# 0.02 X10^3/uL; Basophil% 0.2 % (0-1); Eosinophil# 0.01 X10^3/uL; Eosinophils% 0.1 % (0-5); Hematocrit 36.5 % (40-54); Hemoglobin 10.9 g/dL (13.0-16.5); Lymphocyte # 1.42 X10^3/ul (0.83-4.51); Lymphocyte % 14.2 % (19-41); Mean Corp Hgb Conc 29.9 g/dL (32-36); Mean Corpuscular Hgb 25.3 pg (27.0-32.0); Mean Corpuscular Volume 84.7 fL (80-94); Mean Platelet Vol. 10.2 fl (6.2-12.0); Monocyte# 0.36 X10^3/uL; Monocyte% 3.6 % (0-10); NRBC Flagged by Analyzer 0 % (0-5); Neutrophil # 8.14 X10^3/uL (2.7-7.7); Neutrophil % 81.6 % (47-70); Platelet Count 444 K/mm3 (150-450); RBC Distribution Width CV 15.8 % (11.6-14.6); RBC Distribution Width SD 48.7 fl (35.1-43.9); Red Blood Count 4.31 M/mm3 (4.6-6.2)
--- NOTE | 2024-05-24 09:05 | ED.VIS.GI ---
HPI HPI - GI History of Present Illness Chief Complaint: GI Bleed Detail of Chief Complaint: GI bleed Informant: patient and family Narrative Narrative: Patient presents to the emergency department via EMS for concern about a GI bleed. Patient started with nausea yesterday and not feeling well. He has been having abdominal pain for couple weeks. Patient has been taken ibuprofen and he is on Eliquis for history of PEs. Patient started vomiting this morning and is vomited about 7 or 8 times. Complains of feeling lightheaded and dizzy with standing. took a picture of the vomit looked black. Patient also had a bright red bloody stool this morning. EMS was called to bring patient in for evaluation. Patient also with history of hypertension and coronary artery disease with prior cardiac stent. [facility] Medical History Atherosclerosis of coronary artery of [place] heart without angina pectoris Bifascicular block Cardiomyopathy, ischemic Diabetes mellitus with multiple complications Essential hypertension History of deep vein thrombosis (DVT) of lower extremity (04/2013) History of pulmonary embolism (01/2014) History of ST elevation myocardial infarction (STEMI) (09/2016) Hyperlipidemia Leg edema Leg swelling Lymphedema Nonsustained ventricular tachycardia Obesities, morbid Obstructive sleep apnea on CPAP 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) Pulmonary embolism, bilateral (2013) Right bundle branch block Sleep apnea Type 2 diabetes mellitus without complications Home Medications ?Medication ?Instructions ?Recorded ?Last Taken ?Type aspirin 81 mg tablet,delayed 81 mg PO DAILY@0800 #30 tabs 10/15/16 05/23/24 Rx release dapagliflozin propanediol 10 mg 10 mg PO DAILY 10/03/20 05/23/24 History tablet furosemide 40 mg tablet 40 mg PO DAILY PRN depends on work 08/01/22 Unknown Rx schedule #90 tabs cholecalciferol (vitamin D3) 1,250 1,250 mcg PO QWEEK 06/05/23 05/22/24 History mcg (50,000 unit) tablet ciprofloxacin HCl 500 mg tablet 500 mg PO Q24H 06/05/23 05/23/24 History doxycycline hyclate 100 mg capsule 100 mg PO DAILY 06/05/23 05/23/24 History metformin 1,000 mg tablet 1,000 mg PO BID 06/05/23 05/23/24 History tamsulosin 0.4 mg capsule 0.4 mg PO DAILY 06/05/23 05/23/24 History atorvastatin 80 mg tablet 80 mg PO QHS #90 tabs 09/01/23 05/23/24 Rx carvedilol 6.25 mg tablet 6.25 mg PO BID #180 tabs 09/01/23 05/23/24 Rx potassium chloride 20 mEq 20 meq PO DAILY #90 tabs 09/01/23 05/23/24 Rx tablet,extended release(part/cryst) (Klor-Con M) losartan 50 mg tablet 50 mg PO BID #180 tabs 10/01/23 05/23/24 Rx apixaban 5 mg tablet (Eliquis) See Rx Instructions .Route 03/31/24 05/23/24 Rx .COMPLEX #60 tabs oxycodone-acetaminophen 5 mg-325 1 tab PO 4X/DAY PRN PRN pain 05/24/24 05/23/24 History mg tablet Allergy/AdvReac Type Severity Reaction Status Date / Time bee venom protein (honey AdvReac Hives Verified 06/05/23 10:11 bee) (bee sting) clarithromycin (From Biaxin) AdvReac Other Verified 06/05/23 10:11 Family History Brother CAD (coronary artery disease) Myocardial infarction Father CAD (coronary artery disease) Surgical History (Updated 06/05/23 @ 10:11 by Ada Velasquez) History of repair of right rotator cuff History of cardioversion History of total bilateral knee replacement H/O knee surgery (09/12/22) H/O repair of right rotator cuff History of coronary artery stent placement (11/08/16) Social History Smoking Status: Never smoker alcohol intake: never substance use type: does not use caffeine: Yes Type: carbonated beverages Number of servings: 1 what type of physical activity do you participate in: walking frequency: daily duration: other details: active throughout the day seatbelt use: always do you feel safe at home: Yes ROS ROS ED Review of Systems ROS Unobtainable: other Constitutional Constitutional ED: Reports lethargy; Denies chills, fever(s), sweats or weight loss Eyes Eyes: Denies blurry vision, change in vision or diplopia ENT ENT ED: Denies rhinorrhea or sore throat Cardiovascular Cardiovascular: Denies chest pain, orthopnea or racing heartbeat Respiratory/Chest Respiratory/Chest: Denies cough, dyspnea, dyspnea on exertion, orthopnea or sputum Gastrointestinal Gastrointestinal: Reports abdominal pain, diarrhea, nausea and vomiting Genitourinary Genitourinary ED: Denies dysuria, hematuria or urinary frequency Musculoskeletal Musculoskeletal: Denies arthralgias, back pain, myalgias or neck pain Integumentary Denies abscess, Abrasions or rash Neurologic Neurologic: Denies headache(s) or weakness Psychiatric Psychiatric: Denies anxiety, depression or suicidal thoughts Endocrine Endocrinology: Denies polydipsia, polyphagia or polyuria Hematologic/Lymphatic Hematologic/Lymphatic: Denies easy bleeding, easy bruising or lymphadenopathy Allergic/Immunologic Allergic/Immunologic ED: Denies mouth swelling, tongue swelling or urticaria EXAM Physical Exam Const Vital Signs: 05/24/24 08:35 05/24/24 08:41 05/24/24 10:13 Temperature 97.4 F L 97.4 F L 97.2 F L Temperature Source Oral Oral Oral Pulse Rate 95 97 89 Respiratory Rate 12 12 15 Blood Pressure 90/54 L 84/56 L 114/71 Blood Pressure Mean 66 65 85 Pulse Ox 98 99 99 Oxygen Delivery Method Room Air Room Air Room Air Positive well nourished and well developed General Appearance ED: well developed and NAD HEENT Reports TM's clear and moist mucous membranes normocephalic and atraumatic; Negative for trauma or tenderness Tympanic Membrane ED: Yes TM's clear Eyes PERRL and EOMs intact bilaterally General Eye ED: Negative for pale conjunctiva or scleral icterus Neck no lymphadenopathy, supple and no JVD General: Negative for tenderness Chest Wall inspection of chest normal and palpation of chest normal Chest: Negative for tenderness Resp normal respiratory effort and clear to auscultation bilaterally Effort and Inspection: Negative for respiratory distress or pain with movement Auscultation: Negative for rhonchi, wheezes or diminished lung sounds Cardio regular rate, regular rhythm, S1 normal heart sound, S2 normal heart sound and no murmurs Peripheral Pulses: pulses 2+ throughout GI normal to inspection, nondistended, normoactive bowel sounds, soft to palpation, non-distended and no masses GI Narrative: Tenderness palpation over right lower quadrant with guarding. There is mild diffuse tenderness. No rebound or rigidity. Back/Spine no CVA tenderness and no thoracic nor lumbar tenderness Extremity normal to inspection General Extremety ED: Negative for edema General Extremity: Negative for edema Neuro oriented x3, CN's II-XII intact bilaterally, no sensory deficits noted and gait normal Sensorium / Orientation: awake, alert, oriented to person, oriented to place and oriented to time Motor Exam: strength 5/5 throughout and strength abnormal Psych mental status grossly normal Skin no rashes or lesions noted and no wounds MDM MDM MDM Narrative Medical decision making narrative: Patient presents to the emergency department with black emesis and rectal bleeding. On rectal exam he is noted to have grossly bloody stool. No fissures or hemorrhoids noted. CBC with differential white count of 10.0 with hemoglobin 10.9 and platelet count of 444. BUN elevated 40 and creatinine 1.3. Chemistries unremarkable. LFTs unremarkable. Lipase was elevated 534. INR 1.3. Patient on arrival received a liter mostly fluid bolus followed by second liter of fluid. Most recent blood pressure now [address] scan of the abdomen and pelvis obtained with IV contrast showed a fluid-filled distended stomach with a soft tissue density in the dependent portion of the stomach and a polypoid lesion should be ruled out. I did discuss case initially with Dr. Cuadra and patient was started on Protonix drip. He asked that I reverse his Eliquis and patient was given Kcentra IV. After CT results I discussed case with Dr. Cuadra once again. Will discuss with hospitalist to evaluate patient for admission for upper GI bleed. Lab Data Attestation: I reviewed the patient's lab results. Labs: Laboratory Results - last 24 hr 05/24/24 05/24/24 08:40 09:37 WBC 10.0 RBC 4.31 L Hgb 10.9 L Hct 36.5 L MCV 84.7 MCH 25.3 L MCHC 29.9 L RDW Std Deviation 48.7 H RDW Coeff of Bharath 15.8 H Plt Count 444 MPV 10.2 Immature Gran % (Auto) 0.300 Neut % (Auto) 81.6 H Lymph % (Auto) 14.2 L [place] % (Auto) 3.6 Eos % (Auto) 0.1 Baso % (Auto) 0.2 Absolute Neuts (auto) 8.1 H Absolute Lymphs (auto) 1.42 Nucleated RBC % 0 PT 16.3 H INR 1.3 Sodium 140 Potassium 4.8 Chloride 100 Carbon Dioxide 19.0 L Anion Gap 21 H BUN 40 H Creatinine 1.30 Estim Creat Clear Calc 92.36 Est GFR (MDRD) Af Amer 71 Est GFR (MDRD) Non-Af 58 L BUN/Creatinine Ratio 30.8 H Glucose 268 H Lactic Acid 5.3 H* Calcium 9.5 Total Bilirubin 1.10 H AST 13 L ALT 22 Alkaline Phosphatase 94 Total Protein 7.3 Albumin 3.4 Globulin 3.9 Albumin/Globulin Ratio 0.9 Lipase 534 H Blood Type A POSITIVE Antibody Screen NEGATIVE Radiography Diagnostic Testing: Clinical Impression(s) from Imaging Studies Abdomen/Pelvis CT 05/24/24 08:51 IMPRESSION: Fluid distended stomach with the soft tissue density along the dependent portion of the fundal portion of the stomach. A polypoid lesion should be ruled out. 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, Discussing w/Consultants, Arranging Admission or Transfer and - (30 minutes) Discharge Plan Triage Chief Complaint: GI Bleed ED Provider: Chris Powell Dx/Rx/DC Orders Clinical Impression: Acute upper GI bleed, Hypotension, Hx pulmonary embolism, History of coronary artery disease Prescriptions: No Action dapagliflozin propanediol 10 mg tablet 10 mg PO DAILY cholecalciferol (vitamin D3) 1,250 mcg (50,000 unit) tablet 1,250 mcg PO QWEEK metformin 1,000 mg tablet 1,000 mg PO BID Patient Comments: TAKE 1 TABLET BY MOUTH TWICE A DAY ciprofloxacin HCl 500 mg tablet 500 mg PO Q24H Patient Comments: TAKE 1 TABLET BY MOUTH TWICE A DAY doxycycline hyclate 100 mg capsule 100 mg PO DAILY Patient Comments: TAKE 1 CAPSULE BY MOUTH EVERY DAY tamsulosin 0.4 mg capsule 0.4 mg PO DAILY aspirin 81 MG tablet 81 mg PO DAILY@0800 Qty: 30 11RF oxycodone-acetaminophen 5-325 mg tablet 1 tab PO 4X/DAY PRN PRN (Reason: pain) furosemide 40 mg tablet 40 mg PO DAILY PRN (Reason: depends on work schedule) Qty: 90 3RF atorvastatin 80 mg tablet 80 mg PO QHS Qty: 90 3RF carvedilol 6.25 mg tablet 6.25 mg PO BID Qty: 180 3RF potassium chloride [Klor-Con M20] 20 mEq tablet,ER particles/crystals 20 meq PO DAILY Qty: 90 3RF losartan 50 mg tablet 50 mg PO BID Qty: 180 3RF Eliquis 5 mg tablet See Rx Instructions .ROUTE .COMPLEX Qty: 60 12RF Dose Instruction: TAKE 1 TABLET BY MOUTH TWICE A DAY Rx Instructions: TAKE 1 TABLET BY MOUTH TWICE A DAY Primary Care Provider: Yaneth Maldonado Referrals: Yaneth Maldonado DO [Primary Care Provider] - Print Language: Yoruba Disposition Disposition: Acute Care Hospital [facility]
[2024-05-24 09:25] LABS: ALB/GLOB Ratio 0.9 RATIO (0.9-2.4); AST(SGOT) 13 U/L (15-37); Alanine Aminotransfer ALT/SGPT 22 U/L (16-61); Albumin, Serum 3.4 g/dL (3.2-5.0); Alkaline Phosphatase 94 U/L (45-117); Anion Gap 21 (5-15); BUN 40 mg/dL (7-18); BUN/Creat Ratio 30.8 RATIO (10-20); Calcium,Total 9.5 mg/dL (8.5-10.1); Chloride 100 mmol/L (98-107); EST Glomerular Filtration Rate 58 mL/min (>60); Est Glom Filt Rate - Afr Amer 71 mL/min (>60); Estimated Creatinine Clearance 92.36 ml/min; Globulin 3.9 g/dL (2.2-4.2); Glucose 268 mg/dL (74-106); Lipase 534 U/L (13-75); Potassium 4.8 mmol/L (3.5-5.1); Protein, Total 7.3 g/dL (6.4-8.2); Sodium Level 140 mmol/L (136-145)
[2024-05-24 09:26] LABS: Lactic Acid 5.3 mmol/L (0.4-1.9)
[2024-05-24] MEDS: VIAFLEX IV (09:41)
[2024-05-24] MEDS: HUM PROTHROMBIN CPLX LANS IV (09:41)
[2024-05-24 09:53] LABS: International Normalized Ratio 1.3; Prothrombin Time (Protime)PT. 16.3 SECONDS (11.7-14.9)
[2024-05-24] MEDS: Pantoprazole Sodium 80 MG in 0.9% Normal Saline (100mL Bag) 80 ML 10 MG CONT INF ×3 (10:03→23:14)
[2024-05-24 11:28] LABS: Hematocrit 29.6 % (40-54); Hemoglobin 9.3 g/dL (13.0-16.5)
--- NOTE | 2024-05-24 12:26 | HP.PCM.HOS_ITS ---
HPI - General General Date of Admission: 05/24/24 Date of Service: 05/24/24 Chief Complaint: Hematemesis, hematochezia HPI Narrative POLI AVALOS, is a 68 M who presents to the emergency room at [facility] [place] with complaints of vomiting blood today, also patient had what appeared to be dark red/maroon stool today. Patient did have some generalized abdominal pain but at the time of my examination, he states his abdomen is not really uncomfortable. Patient denies any previous history of GI bleeding, his medical problems include chronic osteomyelitis in his right knee, chronic pain syndrome, paroxysmal A-fib, coronary artery disease, type 2 diabetes, and chronic use of Eliquis and aspirin. Patient does not use any PPI or H2 leonardo, he does take upwards of twelve 200 mg ibuprofen a day for chronic knee pain. On evaluation in the ER, patient's blood pressure was noted to be in the 80s and 90s systolic, he was given IV fluids, labs obtained showed his hemoglobin to be 10.6, patient's white blood cell count was normal, BUN was elevated at 40, blood sugar was 268 and patient's lipase was elevated at 534. Patient has CT of the abdomen and pelvis which showed a fluid distended stomach with a soft tissue density along the dependent portion of the fundal portion of the stomach-it was written that a polypoid lesion should be ruled out. Gastroenterology was contacted, patient received Kcentra and I repeated the patient's hemoglobin after examining him and hemoglobin had dropped a little more than a gram since his first hemoglobin in the emergency room at 8:40 AM. Second hemoglobin was done at approximately 1130. I felt it was safe for the patient to be admitted to PCU under telemetry, every 4 hour hemoglobins will be obtained and the patient will remain on a Protonix drip, patient will be n.p.o. and undergo an EGD today. [facility], [facility] Medical History Atherosclerosis of coronary artery of [place] heart without angina pectoris Bifascicular block Cardiomyopathy, ischemic Diabetes mellitus with multiple complications Essential hypertension History of deep vein thrombosis (DVT) of lower extremity (04/2013) History of pulmonary embolism (01/2014) History of ST elevation myocardial infarction (STEMI) (09/2016) Hyperlipidemia Leg edema Leg swelling Lymphedema Nonsustained ventricular tachycardia Obesities, morbid Obstructive sleep apnea on CPAP 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) Pulmonary embolism, bilateral (2013) Right bundle branch block Sleep apnea Type 2 diabetes mellitus without complications Home Medications ?Medication ?Instructions ?Recorded ?Last Taken ?Type aspirin 81 mg tablet,delayed 81 mg PO DAILY@0800 #30 tabs 10/15/16 05/23/24 Rx release dapagliflozin propanediol 10 mg 10 mg PO DAILY 10/03/20 05/23/24 History tablet furosemide 40 mg tablet 40 mg PO DAILY PRN depends on work 08/01/22 Unknown Rx schedule #90 tabs cholecalciferol (vitamin D3) 1,250 1,250 mcg PO QWEEK 06/05/23 05/22/24 History mcg (50,000 unit) tablet ciprofloxacin HCl 500 mg tablet 500 mg PO Q24H 06/05/23 05/23/24 History doxycycline hyclate 100 mg capsule 100 mg PO DAILY 06/05/23 05/23/24 History metformin 1,000 mg tablet 1,000 mg PO BID 06/05/23 05/23/24 History tamsulosin 0.4 mg capsule 0.4 mg PO DAILY 06/05/23 05/23/24 History atorvastatin 80 mg tablet 80 mg PO QHS #90 tabs 09/01/23 05/23/24 Rx carvedilol 6.25 mg tablet 6.25 mg PO BID #180 tabs 09/01/23 05/23/24 Rx potassium chloride 20 mEq 20 meq PO DAILY #90 tabs 09/01/23 05/23/24 Rx tablet,extended release(part/cryst) (Klor-Con M) losartan 50 mg tablet 50 mg PO BID #180 tabs 10/01/23 05/23/24 Rx apixaban 5 mg tablet (Eliquis) See Rx Instructions .Route 03/31/24 05/23/24 Rx .COMPLEX #60 tabs oxycodone-acetaminophen 5 mg-325 1 tab PO 4X/DAY PRN PRN pain 05/24/24 05/23/24 History mg tablet Allergy/AdvReac Type Severity Reaction Status Date / Time bee venom protein (honey AdvReac Hives Verified 06/05/23 10:11 bee) (bee sting) clarithromycin (From Biaxin) AdvReac Other Verified 06/05/23 10:11 Family History Brother CAD (coronary artery disease) Myocardial infarction Father CAD (coronary artery disease) Surgical History (Updated 06/05/23 @ 10:11 by Ada Velasquez) History of repair of right rotator cuff History of cardioversion History of total bilateral knee replacement H/O knee surgery (09/12/22) H/O repair of right rotator cuff History of coronary artery stent placement (11/08/16) Social History Smoking Status: Never smoker alcohol intake: never substance use type: does not use caffeine: Yes Type: carbonated beverages Number of servings: 1 what type of physical activity do you participate in: walking frequency: daily duration: other details: active throughout the day seatbelt use: always do you feel safe at home: Yes ROS Constitutional Constitutional: Denies anorexia, change in weight, chills, fatigue, fever(s), night sweats or weakness Eyes Eyes: Denies blurry vision, change in vision, discharge from eye(s) or eye pain Cardiovascular Cardiovascular: Denies chest pain, claudication, dyspnea on exertion, edema or palpitations Respiratory/Chest Respiratory/Chest: Denies cough, hemoptysis, shortness of breath at rest or shortness of breath with exertion Gastrointestinal Gastrointestinal: Reports abdominal pain, hematemesis, hematochezia, nausea and vomiting; Denies constipation, diarrhea or melena Genitourinary Genitourinary: Denies difficulty urinating, dysuria, hematuria, urinary frequency, urinary hesitancy, urinary incontinence or urinary urgency Musculoskeletal Musculoskeletal: Reports joint pain; Denies back pain, joint stiffness, joint swelling, myalgias or neck pain Neurologic Neurologic: Denies abnormal gait, abnormal speech, dizziness, focal weakness, headache(s), loss of vision, numbness, other visual disturbances, paresthesias, syncope or tingling Psychiatric Psychiatric: Denies anxiety, cognitive impairment, depression, irritability, mood swings or suicidal ideation Endocrine Endocrinology: Denies change in body appearance, cold intolerance, excessive sweating, heat intolerance, polydipsia or polyuria Hematologic/Lymphatic Hematologic/Lymphatic: Denies none, anemia, easy bleeding, easy bruising or lymphadenopathy Allergic/Immunologic Allergic/Immunologic: Denies rhinitis, urticaria, eczemia or asthma Vital Signs Vital Signs Vital Signs: 05/24/24 08:35 05/24/24 08:41 05/24/24 10:13 Temperature 97.4 F L 97.4 F L 97.2 F L Temperature Source Oral Oral Oral Pulse Rate 95 97 89 Respiratory Rate 12 12 15 Blood Pressure 90/54 L 84/56 L 114/71 Blood Pressure Mean 66 65 85 Pulse Ox 98 99 99 Oxygen Delivery Method Room Air Room Air Room Air 05/24/24 11:05 05/24/24 11:58 Temperature 97.3 F L 97.4 F L Temperature Source Oral Pulse Rate 93 85 Respiratory Rate 12 12 Blood Pressure 112/60 128/63 H Blood Pressure Mean 77 84 Pulse Ox 99 97 Oxygen Delivery Method Room Air Weight Weight: 162.4 kg Body Mass Index (BMI) 42.4 Physical Exam Const alert, oriented x3 and no apparent distress Constitutional Narrative: Patient is morbidly obese General Appearance: cooperative, well kempt and well developed Orientation / Consciousness: awake, oriented to person, oriented to place and oriented to time HEENT normocephalic, head/scalp atraumatic, hearing grossly normal bilaterally and moist oral mucous membranes Eyes PERRL, EOMs intact bilaterally and conjunctivae normal Neck supple, no JVD and thyroid normal General: trachea midline Resp normal respiratory effort, no retractions, no use of accessory muscles and clear to auscultation bilaterally Auscultation: Negative for rales, rhonchi or wheezes Cardio regular rate, regular rhythm, S1 normal heart sound, S2 normal heart sound, no murmurs, no rub and no gallops GI normal to inspection, nondistended, normoactive bowel sounds, soft to palpation, non-tender and non-distended Skin no rashes or lesions noted General Skin Exam: no breakdown Neuro oriented x3, CN's II-XII intact bilaterally, moves all extremities, no focal motor deficits and no sensory deficits noted Sensorium / Orientation: awake and alert Speech: speech normal Psych affect normal Results Lab / Micro Data 05/24/24 11:24 05/24/24 08:40 Labs: Laboratory Results - last 24 hr 05/24/24 08:40: WBC 10.0, RBC 4.31 L, Hgb 10.9 L, Hct 36.5 L, MCV 84.7, MCH 25.3 L, MCHC 29.9 L, RDW Std Deviation 48.7 H, RDW Coeff of Bharath 15.8 H, Plt Count 444, MPV 10.2, Immature Gran % (Auto) 0.300, Neut % (Auto) 81.6 H, Lymph % (Auto) 14.2 L, [place] % (Auto) 3.6, Eos % (Auto) 0.1, Baso % (Auto) 0.2, Absolute Neuts (auto) 8.1 H, Absolute Lymphs (auto) 1.42, Nucleated RBC % 0, Sodium 140, Potassium 4.8, Chloride 100, Carbon Dioxide 19.0 L, Anion Gap 21 H, BUN 40 H, Creatinine 1.30, Estim Creat Clear Calc 92.36, Est GFR (MDRD) Af Amer 71, Est GFR (MDRD) Non-Af 58 L, BUN/Creatinine Ratio 30.8 H, Glucose 268 H, Lactic Acid 5.3 H*, Calcium 9.5, Total Bilirubin 1.10 H, AST 13 L, ALT 22, Alkaline Phosphatase 94, Total Protein 7.3, Albumin 3.4, Globulin 3.9, Albumin/Globulin Ratio 0.9, Lipase 534 H, Blood Type A POSITIVE, Antibody Screen NEGATIVE 05/24/24 09:37: PT 16.3 H, INR 1.3 05/24/24 11:24: Hgb 9.3 L, Hct 29.6 L Imaging Radiology Impression Abdomen/Pelvis CT 05/24/24 08:51 IMPRESSION: Fluid distended stomach with the soft tissue density along the dependent portion of the fundal portion of the stomach. A polypoid lesion should be ruled out. Electronically Signed: Adis Penny MD at 10:16 EDT , Assessment & Plan Assessment/Plan (1) Acute upper GI bleed: PLAN: Plan 1. Upper GI hemorrhage-most probably secondary to nonsteroidal anti- inflammatory usage, patient will be admitted to PCU, acute 4-hour H&H's will be obtained, patient will be monitored on telemetry, patient will be seen by GI and undergo an EGD today. Patient will be maintained on a Protonix drip, patient's medications will be held presently #2 acute blood loss anemia-patient does not currently require blood transfusion, H&H will be monitored, patient does not have any problems taking blood of his necessary #3 chronic pain due to chronic osteomyelitis of the right knee and failed right knee surgery-patient has been cautioned about using any type of nonsteroidal anti-inflammatory agents or aspirin above 81 mg daily. #4 coronary artery disease-this appears to be stable at this time, patient's medications will be held due to his n.p.o. status #5 type 2 diabetes-patient's blood sugars will be monitored, sliding scale insulin will be administered as needed #6 morbid obesity-complicates care, management, recovery, and prognosis #7 hypertension-patient's blood pressure medications will be held for now due to his n.p.o. status #8 chronic osteomyelitis of the right knee-patient is currently on chronic oral Cipro and doxycycline, these will be held due to the patient's n.p.o. status. #9 paroxysmal [id number] carvedilol and Eliquis will be held at this time due to his n.p.o. status and GI bleed Total clinical time spent by myself addressing the patient's medical issues, reviewing all of his data, and collaborating with patient's care team: 75 minutes Charges/Coding Visit Charges Inpatient E&M: 28875 Init Hosp L3
[2024-05-24 12:54] LABS: Reflex Lactate? Y
[2024-05-24] MEDS: Lactated Ringers 1,000 ML 75 ML IV (13:24)
[2024-05-24] MEDS: Ondansetron 4 MG/2 ML Vial IV ×2 (13:31→21:38)
[2024-05-24 13:47] LABS: Lactic Acid 2.2 mmol/L (0.4-1.9)
[2024-05-24 13:48] LABS: Hematocrit 29.1 % (40-54); Hemoglobin 9.2 g/dL (13.0-16.5)
--- NOTE | 2024-05-24 14:45 | NURSING ---
This RN was [place] in [place] and asked for more vomit bags. Pt family appeared frantic. This RN went back to assess the situation and pt had vomited a total of 1650ml of black liquid. Pt family was given emesis bags and primary RN Thalia was notified. Angie VEGA
--- NOTE | 2024-05-24 16:07 | PCM.PRE.AN2 ---
ASA Classification* ASA Classification ASA Classification: 3 Assessment & Plan Anesthesia* Anesthesia Assessment Anesthesia Assessment: Discussed sedation and/or anesthesia options, risks, benefits, and alternatives with patient/parents/legal guardian/POA. Questions invited. The patient/parents/legal guardian/POA seems to understand and agrees to proceed with anesthesia plan. Reviewed the physical assessment, medical history, allergy history and patient home medications list prior to surgery/procedure/anesthetic and documented any changes. Performed airway and anesthesia risk assessments. Anesthesia Type Anesthesia Type: MAC History Source History Obtained from:: Patient and Chart Anesthesia Focused Assessment* Temperature: 98.1 F Pulse Rate: 98 Blood Pressure: 148/41 Respiratory Rate: 16 Pulse Ox: 100 Oxygen Delivery Method: Room Air Airway Assessment Mouth opens: >3 cm Mallampati Score: II Teeth Condition: Caps/Crowns (Patient has multiple crowns. All tight.) Neck Range of motion (ROM): Limited ROM (Somewhat decreased extension.) Pertinent Findings EKG Pertinent Findings:: May 24, 2024. Sinus tachycardia with first-degree AV block. Heart rate is 111 bpm right axial deviation right bundle branch block. Extensive infarct. Age undetermined Focused Labs Anesthesia Preop lab: CBC WBC 10.0 K/mm3 (4.4-11.0) 05/24/24 08:40 RBC 4.31 M/mm3 (4.6-6.2) L 05/24/24 08:40 Hgb 9.2 g/dL (13.0-16.5) L 05/24/24 13:40 Hct 29.1 % (40-54) L 05/24/24 13:40 Plt Count 444 K/mm3 (150-450) 05/24/24 08:40 CHEMISTRY Potassium 4.8 mmol/L (3.5-5.1) 05/24/24 08:40 Sodium 140 mmol/L (136-145) 05/24/24 08:40 Magnesium 2.0 mg/dL (1.8-2.4) 10/13/16 10:12 Phosphorus 3.3 mg/dL (2.5-4.9) 01/07/24 10:10 BUN 40 mg/dL (7-18) H 05/24/24 08:40 Creatinine 1.30 mg/dL (0.70-1.30) 05/24/24 08:40 Glucose 268 mg/dL (74-106) H 05/24/24 08:40 POC Glucose 133 mg/dL (70-110) H 11/09/16 06:29 TSH 1.37 uIU/mL (0.358-3.74) 01/07/24 10:10 COAG PT 16.3 SECONDS (11.7-14.9) H 05/24/24 09:37 Pre-Assessment Diagnosis/Proposed Procedure Planned Operative Procedure(s): Esophagogastroduodenoscopy Anesthesia History Anesthesia History - iuss analyst: Anesthesia History - iuss analyst Hx Hospitalization No 11/08/16 08:02 Any Problems With Anesthesia Cholinesterase deficiency You/Your Family Experience fever (hyperthermia) with Relationship Recent Exposure to Contagious No 02/08/14 11:39 Disease Does patient have nerve stimulator Patient instructed to have device shut off --Does patient have Pacemaker or ICD? When Was Last Pacemaker Check QUESTION #4 FULL TEXT: You/Your Family Experience fever (hyperthermia) with Anesthesia Last Oral Intake Last Oral intake: Last Oral Intake NPO since Meds taken in AM with sips of water? Meds patient instructed to take am of surgery Any additional information?: Yes NPO since: 00:00 PONV PONV - iuss analyst: PONV - iuss analyst Female HX of Motion Sickness HX of N/V After Surgery Non-Smoker Duration of Surgery greater than 60 minutes Number of Risk Factors PONV Score Height & Weight Height & Weight: Anesthesia: Height & Weight Height 6 ft 4 in 05/24/24 12:54 Weight: 162.4 kg 05/24/24 08:35 Body Mass Index (BMI) 42.4 05/24/24 08:35 Respiratory Assessment Respiratory Assessment - iuss analyst: Respiratory Tract Infection Hx - iuss analyst Hx Respiratory Tract Infection No 02/08/14 11:39 STOP Sleep Apnea STOP Sleep Apnea - iuss analyst: STOP Sleep Apnea - iuss analyst Hx Hypertension Yes 05/24/24 12:54 Hx Sleep Apnea Yes 05/24/24 12:54 CPAP Yes 05/24/24 12:54 BIPAP No 05/24/24 12:54 Do you snore loudly (louder than talking or can be heard Do you often feel tired/ fatigued/ sleepy during daytime? Has anyone observed you stop breathing during sleep? STOP Results Positive 05/24/24 12:54 QUESTION #5 FULL TEXT : Do you snore loudly (louder than talking or can be heard through closed doors)? Tobacco Use History Tobacco Use History - iuss analyst: Tobacco Use History - iuss analyst Tobacco Use Smoking Status Never smoker 05/24/24 12:54 Hx Tobacco Use No 05/24/24 12:54 Years Smoking Packs Smoked per Day Smoking Cessation Date was within the last 15 years Hx Smoking Cessation Date Hx Smoking Cessation Counseling Hematologic Medial History Hematologic Hx - iuss analyst: Hematologic Medical Hx - fur glosser Hx of Blood Transfusion No 05/24/24 12:54 Hx of Transfusion in last 3 No 05/24/24 12:54 Months Date of Last Transfusion (if within last 3 months) Ever experience any problems No 05/24/24 12:54 with transfusion(s)? Specify any problems Hx of Preganancy in last 3 N/A 05/24/24 12:54 Months Nurse Filling Out Transfusion AHAGGERTY 05/24/24 12:54 & Questions: Date: 05/24/24 05/24/24 12:54 Time: 13:34 05/24/24 12:54 Patient unable to answer at this time (ie. confused, unrespo /Reproduction History /Reproductive History - iuss analyst: /Reproductive Hx- iuss analyst Hx Now Gestational Age (in weeks): EDC: Hx Hx Para Hx Section SAB Active Medications Active Medications: Current Medications Generic Name Dose Route Start Last Admin Trade Name Freq PRN Reason Stop Dose Admin Lactated Ringer's 1,000 mls @ 75 mls/hr 05/24/24 12:49 05/24/24 13:24 IV 05/25/24 02:08 75 mls/hr .[id number] MIR Administration Protocol Pantoprazole Sodium 80 mg/ 100 mls @ 10 mls/hr 05/24/24 12:49 05/24/24 13:10 Sodium Chloride CONT INF 10 mls/hr Q10H MIR Administration Influenza Virus Vaccine 180 mcg 05/25/24 10:00 Flu Vaccine High Dose Tv 24-25 180 Mcg/0.5 Ml Syringe IM 05/25/24 10:01 .ONCE ONE Morphine Sulfate 2 - 4 mg 05/24/24 12:49 Morphine 2 Mg/Ml Syringe IV Q3H PRN PRN Pain Score 6-10 Morphine Sulfate 2 - 4 mg 05/24/24 13:12 Morphine 4 Mg/Ml Syringe IV Q3H PRN PRN Pain Score 6-10 Ondansetron HCl 4 mg 05/24/24 12:49 05/24/24 13:31 Ondansetron 4 Mg/2 Ml Vial IV 4 mg Q8H PRN PRN Administration NAUSEA/VOMITING Sodium Chloride 10 - 40 ml 05/24/24 12:58 0.9% Saline Lock 10 Ml Syringe IV UD PRN SALINE FLUSH PFSH Medical History Essential hypertension Diabetes mellitus with multiple complications Lymphedema Leg edema Leg swelling Obstructive sleep apnea on CPAP History of pulmonary embolism (01/2014) History of deep vein thrombosis (DVT) of lower extremity (04/2013) History of ST elevation myocardial infarction (STEMI) (09/2016) Cardiomyopathy, ischemic Bifascicular block Right bundle branch block Nonsustained ventricular tachycardia 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) Type 2 diabetes mellitus without complications Atherosclerosis of coronary artery of [place] heart without angina pectoris Hyperlipidemia Pulmonary embolism, bilateral (2013) Obesities, morbid Sleep apnea Home Medications ?Medication ?Instructions ?Recorded ?Last Taken ?Type aspirin 81 mg tablet,delayed 81 mg PO DAILY@0800 #30 tabs 10/15/16 05/23/24 Rx release dapagliflozin propanediol 10 mg 10 mg PO DAILY 10/03/20 05/23/24 History tablet furosemide 40 mg tablet 40 mg PO DAILY PRN depends on work 08/01/22 Unknown Rx schedule #90 tabs cholecalciferol (vitamin D3) 1,250 1,250 mcg PO QWEEK 06/05/23 05/22/24 History mcg (50,000 unit) tablet ciprofloxacin HCl 500 mg tablet 500 mg PO Q24H 06/05/23 05/23/24 History doxycycline hyclate 100 mg capsule 100 mg PO DAILY 06/05/23 05/23/24 History metformin 1,000 mg tablet 1,000 mg PO BID 06/05/23 05/23/24 History tamsulosin 0.4 mg capsule 0.4 mg PO DAILY 06/05/23 05/23/24 History atorvastatin 80 mg tablet 80 mg PO QHS #90 tabs 09/01/23 05/23/24 Rx carvedilol 6.25 mg tablet 6.25 mg PO BID #180 tabs 09/01/23 05/23/24 Rx potassium chloride 20 mEq 20 meq PO DAILY #90 tabs 09/01/23 05/23/24 Rx tablet,extended release(part/cryst) (Klor-Con M) losartan 50 mg tablet 50 mg PO BID #180 tabs 10/01/23 05/23/24 Rx apixaban 5 mg tablet (Eliquis) See Rx Instructions .Route 03/31/24 05/23/24 Rx .COMPLEX #60 tabs oxycodone-acetaminophen 5 mg-325 1 tab PO 4X/DAY PRN PRN pain 05/24/24 05/23/24 History mg tablet Allergy/AdvReac Type Severity Reaction Status Date / Time bee venom protein (honey AdvReac Hives Verified 06/05/23 10:11 bee) (bee sting) clarithromycin (From Biaxin) AdvReac Other Verified 06/05/23 10:11 Family History Brother CAD (coronary artery disease) Myocardial infarction Father CAD (coronary artery disease) Surgical History S/P cervical spinal fusion History of repair of right rotator cuff History of cardioversion History of total bilateral knee replacement H/O knee surgery (09/12/22) H/O repair of right rotator cuff History of coronary artery stent placement (11/08/16) Social History Smoking Status: Never smoker alcohol intake: never substance use type: does not use caffeine: Yes Type: carbonated beverages Number of servings: 1 what type of physical activity do you participate in: walking frequency: daily duration: other details: active throughout the day seatbelt use: always do you feel safe at home: Yes Review of Systems (Anesthesia) ROS Narrative System reviewed and no additional complaints, except as documented.
--- NOTE | 2024-05-24 16:35 | CON.PCM.GI_ITS ---
HPI Consult Data Date of Consult: 05/24/24 HPI Narrative Reason for Consultation: GI bleed HPI Narrative: POLI AVALOS, is a 68 M who presents to the emergency department via EMS for concern about a GI bleed. Patient started with nausea yesterday and not feeling well. He has been having abdominal pain for couple weeks. Patient has been taken ibuprofen and he is on Eliquis for history of PEs. Patient started vomiting this morning and is vomited about 7 or 8 times. Complains of feeling lightheaded and dizzy with standing. His took a picture of the vomit looked black. In the ED his hemoglobin was determined to be 10.2 and currently is 9.3. His baseline hemoglobin is around 13. Patient also had a bright red bloody stool this morning. EMS was called to bring patient in for evaluation. He has a history of coronary artery disease status post STEMI with PCI/drug-eluting stent LAD in September 2016 and PCI/drug- eluting stent to LCx and OM #2 in October 2016. He also has history of hypertension, ischemic cardiomyopathy, paroxysmal atrial fibrillation, hyperlipidemia, DVT, and pulmonary embolism. He does have a history of obstructive sleep apnea and is on CPAP. In February 2021 he underwent successful DC cardioversion. He remains on the same medications. He had previously undergone an echocardiogram as well as a stress test in November 2020 demonstrating preserved ejection fraction of 60%, sigmoid septum, and apical infarct with no ischemia. [facility] Medical History Essential hypertension Diabetes mellitus with multiple complications Lymphedema Leg edema Leg swelling Obstructive sleep apnea on CPAP History of pulmonary embolism (01/2014) History of deep vein thrombosis (DVT) of lower extremity (04/2013) History of ST elevation myocardial infarction (STEMI) (09/2016) Cardiomyopathy, ischemic Bifascicular block Right bundle branch block Nonsustained ventricular tachycardia 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) Type 2 diabetes mellitus without complications Atherosclerosis of coronary artery of [place] heart without angina pectoris Hyperlipidemia Pulmonary embolism, bilateral (2013) Obesities, morbid Sleep apnea Home Medications ?Medication ?Instructions ?Recorded ?Last Taken ?Type aspirin 81 mg tablet,delayed 81 mg PO DAILY@0800 #30 tabs 10/15/16 05/23/24 Rx release dapagliflozin propanediol 10 mg 10 mg PO DAILY 10/03/20 05/23/24 History tablet furosemide 40 mg tablet 40 mg PO DAILY PRN depends on work 08/01/22 Unknown Rx schedule #90 tabs cholecalciferol (vitamin D3) 1,250 1,250 mcg PO QWEEK 06/05/23 05/22/24 History mcg (50,000 unit) tablet ciprofloxacin HCl 500 mg tablet 500 mg PO Q24H 06/05/23 05/23/24 History doxycycline hyclate 100 mg capsule 100 mg PO DAILY 06/05/23 05/23/24 History metformin 1,000 mg tablet 1,000 mg PO BID 06/05/23 05/23/24 History tamsulosin 0.4 mg capsule 0.4 mg PO DAILY 06/05/23 05/23/24 History atorvastatin 80 mg tablet 80 mg PO QHS #90 tabs 09/01/23 05/23/24 Rx carvedilol 6.25 mg tablet 6.25 mg PO BID #180 tabs 09/01/23 05/23/24 Rx potassium chloride 20 mEq 20 meq PO DAILY #90 tabs 09/01/23 05/23/24 Rx tablet,extended release(part/cryst) (Klor-Con M) losartan 50 mg tablet 50 mg PO BID #180 tabs 10/01/23 05/23/24 Rx apixaban 5 mg tablet (Eliquis) See Rx Instructions .Route 03/31/24 05/23/24 Rx .COMPLEX #60 tabs oxycodone-acetaminophen 5 mg-325 1 tab PO 4X/DAY PRN PRN pain 05/24/24 05/23/24 History mg tablet Allergy/AdvReac Type Severity Reaction Status Date / Time bee venom protein (honey AdvReac Hives Verified 06/05/23 10:11 bee) (bee sting) clarithromycin (From Biaxin) AdvReac Other Verified 06/05/23 10:11 Family History Brother CAD (coronary artery disease) Myocardial infarction Father CAD (coronary artery disease) Surgical History S/P cervical spinal fusion History of repair of right rotator cuff History of cardioversion History of total bilateral knee replacement H/O knee surgery (09/12/22) H/O repair of right rotator cuff History of coronary artery stent placement (11/08/16) Social History Smoking Status: Never smoker alcohol intake: never substance use type: does not use caffeine: Yes Type: carbonated beverages Number of servings: 1 what type of physical activity do you participate in: walking frequency: daily duration: other details: active throughout the day seatbelt use: always do you feel safe at home: Yes ROS Constitutional Constitutional: Denies anorexia, change in weight, chills, fatigue, fever(s), night sweats or weakness Eyes Eyes: Denies blurry vision, change in vision, discharge from eye(s) or eye pain Cardiovascular Cardiovascular: Denies chest pain, claudication, dyspnea on exertion, edema or palpitations Respiratory/Chest Respiratory/Chest: Denies cough, hemoptysis, shortness of breath at rest or shortness of breath with exertion Gastrointestinal Gastrointestinal: Reports abdominal pain, hematemesis, hematochezia, nausea and vomiting; Denies constipation, diarrhea or melena Genitourinary Genitourinary: Denies difficulty urinating, dysuria, hematuria, urinary frequency, urinary hesitancy, urinary incontinence or urinary urgency Musculoskeletal Musculoskeletal: Reports joint pain; Denies back pain, joint stiffness, joint swelling, myalgias or neck pain Neurologic Neurologic: Denies abnormal gait, abnormal speech, dizziness, focal weakness, headache(s), loss of vision, numbness, other visual disturbances, paresthesias, syncope or tingling Psychiatric Psychiatric: Denies anxiety, cognitive impairment, depression, irritability, mood swings or suicidal ideation Endocrine Endocrinology: Denies change in body appearance, cold intolerance, excessive sweating, heat intolerance, polydipsia or polyuria Hematologic/Lymphatic Hematologic/Lymphatic: Denies none, anemia, easy bleeding, easy bruising or lymphadenopathy Allergic/Immunologic Allergic/Immunologic: Denies rhinitis, urticaria, eczemia or asthma Physical Exam Const alert, oriented x3 and no apparent distress Constitutional Narrative: Patient is morbidly obese General Appearance: cooperative, well kempt and well developed Orientation / Consciousness: awake, oriented to person, oriented to place and oriented to time HEENT normocephalic, head/scalp atraumatic, hearing grossly normal bilaterally and moist oral mucous membranes Eyes PERRL, EOMs intact bilaterally and conjunctivae normal Neck supple, no JVD and thyroid normal General: trachea midline Resp normal respiratory effort, no retractions, no use of accessory muscles and clear to auscultation bilaterally Auscultation: Negative for rales, rhonchi or wheezes Cardio regular rate, regular rhythm, S1 normal heart sound, S2 normal heart sound, no murmurs, no rub and no gallops GI normal to inspection, nondistended, normoactive bowel sounds, soft to palpation, non-tender and non-distended Skin no rashes or lesions noted General Skin Exam: no breakdown Neuro oriented x3, CN's II-XII intact bilaterally, moves all extremities, no focal motor deficits and no sensory deficits noted Sensorium / Orientation: awake and alert Speech: speech normal Psych affect normal Lab / Micro Data 05/24/24 13:40 05/24/24 08:40 Labs: Laboratory Results - last 24 hr 05/24/24 08:40: WBC 10.0, RBC 4.31 L, Hgb 10.9 L, Hct 36.5 L, MCV 84.7, MCH 25.3 L, MCHC 29.9 L, RDW Std Deviation 48.7 H, RDW Coeff of Bharath 15.8 H, Plt Count 444, MPV 10.2, Immature Gran % (Auto) 0.300, Neut % (Auto) 81.6 H, Lymph % (Auto) 14.2 L, [place] % (Auto) 3.6, Eos % (Auto) 0.1, Baso % (Auto) 0.2, Absolute Neuts (auto) 8.1 H, Absolute Lymphs (auto) 1.42, Nucleated RBC % 0, Sodium 140, Potassium 4.8, Chloride 100, Carbon Dioxide 19.0 L, Anion Gap 21 H, BUN 40 H, Creatinine 1.30, Estim Creat Clear Calc 92.36, Est GFR (MDRD) Af Amer 71, Est GFR (MDRD) Non-Af 58 L, BUN/Creatinine Ratio 30.8 H, Glucose 268 H, Lactic Acid 5.3 H*, Calcium 9.5, Total Bilirubin 1.10 H, AST 13 L, ALT 22, Alkaline Phosphatase 94, Total Protein 7.3, Albumin 3.4, Globulin 3.9, Albumin/Globulin Ratio 0.9, Lipase 534 H, Blood Type A POSITIVE, Antibody Screen NEGATIVE 05/24/24 09:37: PT 16.3 H, INR 1.3 05/24/24 11:24: Hgb 9.3 L, Hct 29.6 L 05/24/24 13:04: Lactic Acid 2.2 H* 05/24/24 13:40: Hgb 9.2 L, Hct 29.1 L Imaging Radiology Impression Abdomen/Pelvis CT 05/24/24 08:51 IMPRESSION: Fluid distended stomach with the soft tissue density along the dependent portion of the fundal portion of the stomach. A polypoid lesion should be ruled out. Electronically Signed: Adis Penny MD at 10:16 EDT , Assessment & Plan Assessment/Plan (1) Acute upper GI bleed: PLAN: Plan 68-year-old gentleman with past medical history of CAD, pulmonary embolism on Eliquis and aspirin has been taking NSAIDs as an outpatient. Most likely upper GI hemorrhage-most probably secondary to nonsteroidal anti- inflammatory usage. Patient will need to undergo an upper endoscopy to evaluate his upper GI tract. Hold NSAIDs, Eliquis and all nonsteroidals. He was explained alternatives, risk, benefits include not withstanding bleeding, infection, sepsis, perforation, need for more surgery . He will have an ASA of 3. Charges/Coding Visit Charges Inpatient E&M: 32261 Init Hosp L3
[2024-05-24] MEDS: Epinephrine (1 mg/ml) 1 MG/ML VIAL (17:44)
--- NOTE | 2024-05-24 18:08 | OP.EGD_ITS ---
Patient Name: Jack Small Procedure Date: 05/24/2024 5:06 PM Date of : 1955 Age: 68 Procedure: Upper GI endoscopy Indications: Acute post hemorrhagic anemia, Hematemesis, Melena Providers: Anibal Cuadra DO Medicines: Monitored Anesthesia Care Patient Profile: This is a 68 year old male. Refer to note in patient chart for documentation of history and physical. Patient has symptoms of acute epigastric abdominal pain and acute vomiting. Complications: No immediate complications. Procedure: Pre-Anesthesia Assessment: - Prior to the procedure, a History and Physical was performed, and patient medications and allergies were reviewed. The patient is competent. The risks and benefits of the procedure and the sedation options and risks were discussed with the patient. All questions were answered and informed consent was obtained. Patient identification and proposed procedure were verified in the pre-procedure area. Mental Status Examination: alert and oriented. Airway Examination: normal oropharyngeal airway and neck mobility. Respiratory Examination: clear to auscultation. CV Examination: normal. Prophylactic Antibiotics: The patient does not require prophylactic antibiotics. Prior Anticoagulants: The patient has taken no anticoagulant or antiplatelet agents except for NSAID medication. ASA Grade Assessment: III - A patient with severe systemic disease. After reviewing the risks and benefits, the patient was deemed in satisfactory condition to undergo the procedure. The anesthesia plan was to use monitored anesthesia care (MAC). Immediately prior to administration of medications, the patient was re-assessed for adequacy to receive sedatives. The heart rate, respiratory rate, oxygen saturations, blood pressure, adequacy of pulmonary ventilation, and response to care were monitored throughout the procedure. The physical status of the patient was re-assessed after the procedure. After obtaining informed consent, the endoscope was passed under direct vision. Throughout the procedure, the patient's blood pressure, pulse, and oxygen saturations were monitored continuously. The Endoscope was introduced through the mouth, and advanced to the second part of duodenum. The upper GI endoscopy was accomplished without difficulty. The patient tolerated the procedure well. Scope In: 5:29:56 PM Scope Out: 6:01:33 PM Total Procedure Duration Time 0 hours 31 minutes 37 seconds Findings: The examined esophagus was normal. A small hiatal hernia was present. No other significant abnormalities were identified in a careful examination of the stomach. One spurting cratered duodenal ulcer with a visible vessel was found in the duodenal bulb. The lesion was 20 mm in largest dimension. Area was successfully injected with 10 mL of a 0.1 mg/mL solution of epinephrine for drug delivery. Coagulation for hemostasis using heater probe was successful. Estimated blood loss was minimal. Clot removal with lavage was attempted. This was successful and revealed a non-bleeding lesion with a visible vessel. For hemostasis, one hemostatic clip was successfully placed. Clip senior web applications developer: [employer]. There was no bleeding at the end of the procedure. Impression: - Normal esophagus. - Small hiatal hernia. - Spurting duodenal ulcer with a visible vessel. Injected. Treated with a heater probe. Clip was placed. Clip senior web applications developer: [employer]. - No specimens collected. Recommendation: - Return patient to [facility] for [facility] care. - Clear liquid diet today. - Continue present medications. Procedure Code(s): --- Professional --- 42241, Esophagogastroduodenoscopy, flexible, transoral; with control of bleeding, any method 61550, 59,51, Esophagogastroduodenoscopy, flexible, transoral; with directed submucosal injection(s), any substance CPT copyright 2021 [employer]. All rights reserved. The codes documented in this report are preliminary and upon change management consultant review may be revised to meet current compliance requirements. Anibal Cuadra DO 05/24/2024 6:07:49 PM This report has been signed electronically. Number of Addenda: 0 Note Initiated On: 05/24/2024 5:06 PM
--- NOTE | 2024-05-24 18:08 | OP.CCLET_ITS ---
05/24/2024 Yaneth Maldonado Re : Upper GI endoscopy procedure for Jack Small Dear Erica This procedure was performed on Friday, May 24, 2024. My impressions and recommendations are as follows: Impressions : - Normal esophagus. - Small hiatal hernia. - Spurting duodenal ulcer with a visible vessel. Injected. Treated with a heater probe. Clip was placed. Clip audio visual tech: [employer]. - No specimens collected. Recommendations : - Return patient to [facility] for [facility] care. - Clear liquid diet today. - Continue present medications. My findings are described in the full procedure note, which is enclosed. If I can be of further assistance, please feel free to contact me at . Sincerely, Anibal Cuadra, 05/24/2024 6:07:49 PM This report has been signed electronically.
--- NOTE | 2024-05-24 18:11 | POSTOPAN2_ITS ---
Anesthesia Postop Eval I Sum Postop Eval Completion status Anesthesia document: Postop Eval 1 completed: Yes Anesthesia Postop Eval I Summary Anesthesia Postop Eval I Summary: Anesthesia Postop Eval I: Assessment Summary Airway patent Yes 05/24/24 18:11 MATERIAL [email or web address].MDOT Spontaneous unlabored Yes 05/24/24 18:11 MATERIAL SCHEDULER.MDOT respirations Mental status Awake,Calm 05/24/24 18:11 MATERIAL SCHEDULER.MDOT nausea No 05/24/24 18:11 MATERIAL SCHEDULER.MDOT Vomiting No 05/24/24 18:11 MATERIAL SCHEDULER.MDOT Anesthesia Postop Eval I: Fluid Summary Crystalloid volume administer 300 05/24/24 18:11 MATERIAL SCHEDULER.MDOT (ml) Colloids volume administered ( ml) Blood Product volume administered (ml) Total IV fluid infused 300 05/24/24 18:11 MATERIAL SCHEDULER.MDOT Anesthesia Postop Eval I: Summary Notes Anesthesia Complication No 05/24/24 18:11 MATERIAL SCHEDULER.MDOT Anesthesia Complication Comment: Post-operative progress note Anesthesia: Postop Eval II Evaluation Mental status: Awake and Calm Pain Level: 0 nausea: No Vomiting: No Complications Anesthesia Complication: No
--- NOTE | 2024-05-24 18:11 | PCM.POST.ANE ---
Anesthesia: Postop Eval I Current Vital Signs Temperature: 98 F Pulse Rate: 100 Blood Pressure: 114/56 Respiratory Rate: 18 Pulse Ox: 92 Oxygen Delivery Method: Nasal Cannula Oxygen Flow Rate (L/min): 2 Assessment Airway patent: Yes Spontaneous unlabored respirations: Yes Mental status: Awake and Calm nausea: No Vomiting: No Anesthesia Complication: No Fluid Hydration Crystalloid volume administer (ml): 300 Total IV fluid infused: 300 Progress Note Anesthesia document: Postop Eval 1 completed: Yes
--- NOTE | 2024-05-24 18:11 | PCM.POSTANE2 ---
Anesthesia Postop Eval I Sum Postop Eval Completion status Anesthesia document: Postop Eval 1 completed: Yes Anesthesia Postop Eval I Summary Anesthesia Postop Eval I Summary: Anesthesia Postop Eval I: Assessment Summary Airway patent Yes 05/24/24 18:11 BELLOWS [email or web address] Spontaneous unlabored Yes 05/24/24 18:11 BELLOWS TESTER.MDOT respirations Mental status Awake,Calm 05/24/24 18:11 BELLOWS TESTER.MDOT nausea No 05/24/24 18:11 BELLOWS TESTER.MDOT Vomiting No 05/24/24 18:11 BELLOWS [email or web address].MDOT Anesthesia Postop Eval I: Fluid Summary Crystalloid volume administer 300 05/24/24 18:11 BELLOWS TESTER.MDOT (ml) Colloids volume administered ( ml) Blood Product volume administered (ml) Total IV fluid infused 300 05/24/24 18:11 BELLOWS [email or web address].[email or web address] Anesthesia Postop Eval I: Summary Notes Anesthesia Complication No 05/24/24 18:11 BELLOWS [email or web address].MDOT Anesthesia Complication Comment: Post-operative progress note Anesthesia: Postop Eval II Evaluation Mental status: Awake and Calm Pain Level: 0 nausea: No Vomiting: No Complications Anesthesia Complication: No
[2024-05-24 19:30] LABS: Hematocrit 28.1 % (40-54); Hemoglobin 8.8 g/dL (13.0-16.5)
[2024-05-24] MEDS: Morphine 4 MG/ML Syringe IV (20:39)
[2024-05-24] MEDS: 0.9% Saline Lock 10 ML Syringe IV (21:38)
[2024-05-24 22:19] LABS: Hematocrit 26.4 % (40-54); Hemoglobin 8.4 g/dL (13.0-16.5)
[2024-05-24] MEDS: Insulin Lispro 100 UNIT/ML INSULN.PEN SC (23:20)
[2024-05-24 23:45] LABS: Bedside Glucose 180 mg/dL (74-106)
[2024-05-25] VITALS (8 sets, daily range): BP systolic 119–142; BP diastolic 50–78; PULSE 71–88; RESP 14–18; TEMP 36.2–36.9; O2SAT 94–99
[2024-05-25] MEDS: Insulin Lispro 100 UNIT/ML INSULN.PEN SC ×4 (06:14→22:45)
[2024-05-25 06:38] LABS: Bedside Glucose 205 mg/dL (74-106)
[2024-05-25] MEDS: FLU VACCINE **HIGH DOSE** TV 24-25 180 MCG/0.5 ML SYRINGE IM (10:09)
[2024-05-25] MEDS: Pantoprazole Sodium 40 MG in 0.9% Normal Saline (100mL MB+) 100 ML 330 MG IV ×2 (10:10→21:34)
[2024-05-25 11:51] LABS: Bedside Glucose 184 mg/dL (74-106)
--- NOTE | 2024-05-25 12:16 | CASEMGMT ---
SILVIA VAIL Assessment Face to Face with patient for initial transition planning/care coordination assessment. SILVIA VAIL introduced self and role at [facility], pt voices understanding. Pt is A&Ox4 and is resting comfortably in bed and is calm. Care providers, pharmacy, and demographics verified. Admitting dx: Upper GI Bleed LACE Strata: 2 PCP: Yaneth Maldonado Specialists: Abelardo GAGE (PM) Preferred Pharmacy: [facility] Insurance: [facility] A/B, AARP Prescription Benefit: Yes LNOK: Tania Small (W) Living Arrangements: Pt lives with his , son, and DIL in a single story home with a basement and 6 small steps to enter ADLs/IADLs: Reports mainly independent and that if he needs assistance his can help Transportation: Pt does not drive. Pt drives. Denies concerns DME: CPAP with no additional oxygen. Glucometer with sufficient supplies. BP Monitor. Pulse Ox. FWW. W/C. Cane. HHC/SNF: Reports HHC in 2021 through [facility]. Reports history at [facility] Pt?s goal: Home Plan: Home with pt family once medically ready. there is no 6-click score or therapy ordered. Pt states that he will not need this. Pt denies the need for HHC, OP Tx, SNF, CCN, or Pt Link and states that he feels safe returning home with his family once able. Pt denies further questions or concerns at this time. Amarjit Langston RN, CM
[2024-05-25 13:04] LABS: Hematocrit 24.5 % (40-54); Hemoglobin 7.8 g/dL (13.0-16.5)
--- NOTE | 2024-05-25 15:14 | PCM.PN.HOSP ---
Reason for Visit Reason for Visit: Diagnoses Gastrointestinal hemorrhage, unspecified (05/24/24) Subjective Subjective Patient was seen and examined today, I repeated his hemoglobin this afternoon and it was 7.8. Nursing states that GI is considering doing another EGD on him this afternoon. I will recheck his hemoglobin this evening. Objective Data Objective Data Vital Signs: Vital Signs Temp Pulse Resp BP Pulse Ox O2 Del Method O2 Flow Rate 98 F 86 14 138/78 H 97 Room Air 2 05/25/24 09:00 05/25/24 09:00 05/25/24 09:00 05/25/24 09:00 05/25/24 09:00 05/25/24 09:00 05/24/24 18:20 Oxygen Flow Rate (L/min) 2 Oxygen Delivery Method Room Air Weight: 162.4 kg Body Mass Index (BMI) 42.4 Intake & Output: Intake and Output for Last 24 Hours 05/23/24 05/24/24 05/25/24 23:59 23:59 23:59 Intake Total 2581.83 / 3221.83 2592.5 / 2592.5 Output Total 2150 / 2400 450 / 450 Balance 431.83 / 821.83 2142.5 / 2142.5 Lab / Micro Data 05/25/24 12:55 05/24/24 08:40 Labs: Laboratory Results - last 24 hr 05/24/24 19:15: Hgb 8.8 L, Hct 28.1 L 05/24/24 22:10: Hgb 8.4 L, Hct 26.4 L 05/24/24 23:11: POC Glucose 180 H 05/25/24 06:11: POC Glucose 205 H 05/25/24 11:33: POC Glucose 184 H 05/25/24 12:55: Hgb 7.8 L, Hct 24.5 L Physical Exam Narrative alert, oriented x3 and no apparent distress Constitutional Narrative: Patient is morbidly obese General Appearance: cooperative, well kempt and well developed Orientation / Consciousness: awake, oriented to person, oriented to place and oriented to time HEENT normocephalic, head/scalp atraumatic, hearing grossly normal bilaterally and moist oral mucous membranes Eyes PERRL, EOMs intact bilaterally and conjunctivae normal Neck supple, no JVD and thyroid normal General: trachea midline Resp normal respiratory effort, no retractions, no use of accessory muscles and clear to auscultation bilaterally Auscultation: Negative for rales, rhonchi or wheezes Cardio regular rate, regular rhythm, S1 normal heart sound, S2 normal heart sound, no murmurs, no rub and no gallops GI normal to inspection, nondistended, normoactive bowel sounds, soft to palpation, non-tender and non-distended Skin no rashes or lesions noted General Skin Exam: no breakdown Neuro oriented x3, CN's II-XII intact bilaterally, moves all extremities, no focal motor deficits and no sensory deficits noted Sensorium / Orientation: awake and alert Speech: speech normal Psych affect normal Assessment & Plan Assessment/Plan (1) Acute upper GI bleed: PLAN: Plan 1. Upper GI hemorrhage-secondary to duodenal ulcer most likely secondary to nonsteroidal anti-inflammatory usage on a backdrop of chronic anticoagulation with Eliquis-patient's hemoglobin will be rechecked this evening, patient may undergo repeat EGD today #2 acute blood loss anemia-patient does not currently require blood transfusion, H&H will be monitored, patient does not have any problems taking blood of his necessary #3 chronic pain due to chronic osteomyelitis of the right knee and failed right knee surgery-patient has been cautioned about using any type of nonsteroidal anti-inflammatory agents or aspirin above 81 mg daily. #4 coronary artery disease-this appears to be stable at this time, patient's medications will be held due to his n.p.o. status #5 type 2 diabetes-patient's blood sugars will be monitored, sliding scale insulin will be administered as needed #6 morbid obesity-complicates care, management, recovery, and prognosis #7 hypertension-patient's blood pressure medications will be held for now due to his n.p.o. status #8 chronic osteomyelitis of the right knee-patient is currently on chronic oral Cipro and doxycycline, these will be held due to the patient's n.p.o. status. #9 paroxysmal [id number]'s carvedilol and Eliquis will be held at this time due to his n.p.o. status and GI bleed Total clinical time spent by myself addressing the patient's medical issues, reviewing all of his data, and collaborating with patient's care team: 35 minutes Charges/Coding Visit Charges Inpatient E&M: 42233 Subs Hosp L2
--- NOTE | 2024-05-25 15:50 | CHAPLAIN ---
Type of Pastoral Visit _x__ Initial Visit ___ Follow-up Visit ___ On-call Visit ___ General Patient Visit ___ Spiritual Assessment ___ Family Conference ___ Bereavement ___ Rapid Response ___ Code Blue ___ Other (describe below) Pastoral Care Referral From _x__ Patient ___ Family ___ Nurse ___ Physician ___ Benefits Processor ___ Binder Folder Operator ___ Other (describe below) Sacrament/Intervention _x__ Active listening ___ Anointing ___ Latter-Day ___ Bereavement ___ Communion _x__ Angelic exploration ___ _x__ Life review _x__ Prayer ___ Reconciliation ___ Sacrament of Sick _x__ Supportive presence ___ Wedding ___ Other (describe below) Pastoral Comments patient remembers this sash assembler from a previous admission several years ago; 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
[2024-05-25 16:51] LABS: Bedside Glucose 206 mg/dL (74-106)
[2024-05-25] MEDS: 0.9% Saline Lock 10 ML Syringe IV (18:15)
[2024-05-25] MEDS: Morphine 4 MG/ML Syringe IV ×2 (18:15→22:46)
--- NOTE | 2024-05-25 19:32 | EX.PCM.PN.GI ---
Subjective Subjective Patient is having some dark stools. He is status post upper endoscopy with control of bleed and discovered to have large duodenal ulcer. His hemoglobin has been slowly trending down. Last hemoglobin was at 7.8. Objective Data Objective Data Vital Signs: Vital Signs Temp Pulse Resp BP Pulse Ox O2 Del Method O2 Flow Rate 98.4 F 79 18 130/60 H 99 Room Air 2 05/25/24 18:50 05/25/24 18:50 05/25/24 18:50 05/25/24 18:50 05/25/24 18:50 05/25/24 18:50 05/24/24 18:20 Oxygen Flow Rate (L/min) 2 Oxygen Delivery Method Room Air Weight: 358 lb 0.491 oz Body Mass Index (BMI) 42.4 Intake & Output: Intake and Output for Last 24 Hours 05/23/24 05/24/24 05/25/24 23:59 23:59 23:59 Intake Total 2581.83 / 3221.83 3742.5 / 3742.5 Output Total 2150 / 2400 2580 / 2580 Balance 431.83 / 821.83 1162.5 / 1162.5 Lab / Micro Data 05/25/24 12:55 05/24/24 08:40 Labs: Laboratory Results - last 24 hr 05/24/24 08:40: Crossmatch See Detail 05/24/24 22:10: Hgb 8.4 L, Hct 26.4 L 05/24/24 23:11: POC Glucose 180 H 05/25/24 06:11: POC Glucose 205 H 05/25/24 11:33: POC Glucose 184 H 05/25/24 12:55: Hgb 7.8 L, Hct 24.5 L 05/25/24 16:33: POC Glucose 206 H Physical Exam Narrative alert, oriented x3 and no apparent distress Constitutional Narrative: Patient is morbidly obese General Appearance: cooperative, well kempt and well developed Orientation / Consciousness: awake, oriented to person, oriented to place and oriented to time HEENT normocephalic, head/scalp atraumatic, hearing grossly normal bilaterally and moist oral mucous membranes Eyes PERRL, EOMs intact bilaterally and conjunctivae normal Neck supple, no JVD and thyroid normal General: trachea midline Resp normal respiratory effort, no retractions, no use of accessory muscles and clear to auscultation bilaterally Auscultation: Negative for rales, rhonchi or wheezes Cardio regular rate, regular rhythm, S1 normal heart sound, S2 normal heart sound, no murmurs, no rub and no gallops GI normal to inspection, nondistended, normoactive bowel sounds, soft to palpation, non-tender and non-distended Skin no rashes or lesions noted General Skin Exam: no breakdown Neuro oriented x3, CN's II-XII intact bilaterally, moves all extremities, no focal motor deficits and no sensory deficits noted Sensorium / Orientation: awake and alert Speech: speech normal Psych affect normal Assessment & Plan Assessment/Plan (1) Acute upper GI bleed: PLAN: Plan 68 gentleman with past medical history of CAD and multiple pulmonary embolism along with DVT requiring tPA who has been on nonsteroidals due to some arthritic pain along with some aspirin due to history of CAD. He was discovered to have large active bleeding duodenal ulcer that was treated with epinephrine, cauterization and clipping. Awaiting his repeat hemoglobin. He would likely need upper endoscopy repeated tomorrow to make sure is safe for him to go back on Eliquis. Would not recommend restarting nonsteroidals in the near future. Charges/Coding Visit Charges Inpatient E&M: 21031 Subs Hosp L3
[2024-05-25 20:21] LABS: Hematocrit 25.4 % (40-54)
[2024-05-25 23:11] LABS: Bedside Glucose 155 mg/dL (74-106)
[2024-05-26] VITALS (13 sets, daily range): BP systolic 126–174; BP diastolic 41–77; PULSE 60–74; RESP 16–18; TEMP 36.2–36.9; O2SAT 95–100
[2024-05-26 06:13] LABS: Hematocrit 24.6 % (40-54); Hemoglobin 7.8 g/dL (13.0-16.5)
[2024-05-26 06:28] LABS: Bedside Glucose 143 mg/dL (74-106)
[2024-05-26] MEDS: Pantoprazole Sodium 40 MG in 0.9% Normal Saline (100mL MB+) 100 ML 330 MG IV (08:35)
[2024-05-26] MEDS: Morphine 2 MG/ML Syringe IV ×2 (08:35→15:31)
--- NOTE | 2024-05-26 12:48 | PCM.PRE.AN2 ---
ASA Classification* ASA Classification ASA Classification: 3 Assessment & Plan Anesthesia* Anesthesia Assessment Anesthesia Assessment: Discussed sedation and/or anesthesia options, risks, benefits, and alternatives with patient/parents/legal guardian/POA. Questions invited. The patient/parents/legal guardian/POA seems to understand and agrees to proceed with anesthesia plan. Reviewed the physical assessment, medical history, allergy history and patient home medications list prior to surgery/procedure/anesthetic and documented any changes. Performed airway and anesthesia risk assessments. Anesthesia Type Anesthesia Type: MAC Anesthesia Focused Assessment* Temperature: 97.1 F Pulse Rate: 66 Blood Pressure: 131/66 Respiratory Rate: 18 Pulse Ox: 100 Airway Assessment Mouth opens: >3 cm Mallampati Score: II Focused Labs Anesthesia Preop lab: CBC WBC 10.0 K/mm3 (4.4-11.0) 05/24/24 08:40 RBC 4.31 M/mm3 (4.6-6.2) L 05/24/24 08:40 Hgb 7.8 g/dL (13.0-16.5) L 05/26/24 05:44 Hct 24.6 % (40-54) L 05/26/24 05:44 Plt Count 444 K/mm3 (150-450) 05/24/24 08:40 CHEMISTRY Potassium 4.8 mmol/L (3.5-5.1) 05/24/24 08:40 Sodium 140 mmol/L (136-145) 05/24/24 08:40 Magnesium 2.0 mg/dL (1.8-2.4) 10/13/16 10:12 Phosphorus 3.3 mg/dL (2.5-4.9) 01/07/24 10:10 BUN 40 mg/dL (7-18) H 05/24/24 08:40 Creatinine 1.30 mg/dL (0.70-1.30) 05/24/24 08:40 Glucose 268 mg/dL (74-106) H 05/24/24 08:40 POC Glucose 143 mg/dL (74-106) H 05/26/24 06:07 TSH 1.37 uIU/mL (0.358-3.74) 01/07/24 10:10 COAG PT 16.3 SECONDS (11.7-14.9) H 05/24/24 09:37 Pre-Assessment Diagnosis/Proposed Procedure Planned Operative Procedure(s): Esophagogastroduodenoscopy Anesthesia History Anesthesia History - rectification printer: Anesthesia History - rectification printer Hx Hospitalization No 11/08/16 08:02 Any Problems With Anesthesia Cholinesterase deficiency You/Your Family Experience fever (hyperthermia) with Relationship Recent Exposure to Contagious No 02/08/14 11:39 Disease Does patient have nerve stimulator Patient instructed to have device shut off --Does patient have Pacemaker or ICD? When Was Last Pacemaker Check QUESTION #4 FULL TEXT: You/Your Family Experience fever (hyperthermia) with Anesthesia Last Oral Intake Last Oral intake: Last Oral Intake NPO since 00:00 05/24/24 16:31 Meds taken in AM with sips of water? Meds patient instructed to take am of surgery PONV PONV - rectification printer: PONV - rectification printer Female HX of Motion Sickness HX of N/V After Surgery Non-Smoker Duration of Surgery greater than 60 minutes Number of Risk Factors PONV Score Height & Weight Height & Weight: Anesthesia: Height & Weight Height 6 ft 4 in 05/24/24 12:54 Weight: 162.4 kg 05/24/24 08:35 Body Mass Index (BMI) 42.4 05/24/24 08:35 Respiratory Assessment Respiratory Assessment - rectification printer: Respiratory Tract Infection Hx - rectification printer Hx Respiratory Tract Infection No 02/08/14 11:39 STOP Sleep Apnea STOP Sleep Apnea - rectification printer: STOP Sleep Apnea - rectification printer Hx Hypertension Yes 05/24/24 12:54 Hx Sleep Apnea Yes 05/24/24 18:23 CPAP Yes 05/24/24 12:54 BIPAP No 05/24/24 12:54 Do you snore loudly (louder than talking or can be heard Do you often feel tired/ fatigued/ sleepy during daytime? Has anyone observed you stop breathing during sleep? STOP Results Positive 05/24/24 12:54 QUESTION #5 FULL TEXT : Do you snore loudly (louder than talking or can be heard through closed doors)? Tobacco Use History Tobacco Use History - rectification printer: Tobacco Use History - rectification printer Tobacco Use Smoking Status Never smoker 05/24/24 12:54 Hx Tobacco Use No 05/24/24 12:54 Years Smoking Packs Smoked per Day Smoking Cessation Date was within the last 15 years Hx Smoking Cessation Date Hx Smoking Cessation Counseling Hematologic Medial History Hematologic Hx - rectification printer: Hematologic Medical Hx - steam table associate Hx of Blood Transfusion No 05/24/24 12:54 Hx of Transfusion in last 3 No 05/24/24 12:54 Months Date of Last Transfusion (if within last 3 months) Ever experience any problems No 05/24/24 12:54 with transfusion(s)? Specify any problems Hx of Preganancy in last 3 N/A 05/24/24 12:54 Months Nurse Filling Out Transfusion AHAGGERTY 05/24/24 12:54 & Questions: Date: 05/24/24 05/24/24 12:54 Time: 13:34 05/24/24 12:54 Patient unable to answer at this time (ie. confused, unrespo /Reproduction History /Reproductive History - rectification printer: /Reproductive Hx- rectification printer Hx Now Gestational Age (in weeks): EDC: Hx Hx Para Hx Section SAB Active Medications Active Medications: Current Medications Generic Name Dose Route Start Last Admin Trade Name Freq PRN Reason Stop Dose Admin Glucagon 1 mg 05/24/24 18:26 Glucagon 1 Mg/Ml Syringe IM X1 PRN Hypoglycemia Protocol Dextrose 250 mls @ 0 mls/hr 05/24/24 18:26 Dextrose 10%-Water IV .Q0M PRN HYPOGLYCEMIA Protocol As Directed Pantoprazole Sodium 40 mg/ 110 mls @ 330 mls/hr 05/25/24 10:00 05/26/24 09:07 Sodium Chloride IV Infused Q12 MIR Infusion Insulin Human Lispro 0 unit 05/25/24 00:00 05/26/24 06:09 Insulin Lispro 100 Unit/Ml Insuln.Pen SC Not Given Q6 MIR Protocol Morphine Sulfate 2 - 4 mg 05/24/24 12:49 05/26/24 08:35 Morphine 2 Mg/Ml Syringe IV 4 mg Q3H PRN PRN Administration Pain Score 6-10 Morphine Sulfate 2 - 4 mg 05/24/24 13:12 05/25/24 22:46 Morphine 4 Mg/Ml Syringe IV 4 mg Q3H PRN PRN Administration Pain Score 6-10 Ondansetron HCl 4 mg 05/24/24 12:49 05/24/24 21:38 Ondansetron 4 Mg/2 Ml Vial IV 4 mg Q8H PRN PRN Administration NAUSEA/VOMITING Sodium Chloride 10 - 40 ml 05/24/24 12:58 05/25/24 18:15 0.9% Saline Lock 10 Ml Syringe IV 10 ml UD PRN Administration SALINE FLUSH PFSH Medical History Essential hypertension Diabetes mellitus with multiple complications Lymphedema Leg edema Leg swelling Obstructive sleep apnea on CPAP History of pulmonary embolism (01/2014) History of deep vein thrombosis (DVT) of lower extremity (04/2013) History of ST elevation myocardial infarction (STEMI) (09/2016) Cardiomyopathy, ischemic Bifascicular block Right bundle branch block Nonsustained ventricular tachycardia 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) Type 2 diabetes mellitus without complications Atherosclerosis of coronary artery of [place] heart without angina pectoris Hyperlipidemia Pulmonary embolism, bilateral (2013) Obesities, morbid Sleep apnea Home Medications ?Medication ?Instructions ?Recorded ?Last Taken ?Type aspirin 81 mg tablet,delayed 81 mg PO DAILY@0800 #30 tabs 10/15/16 05/23/24 Rx release dapagliflozin propanediol 10 mg 10 mg PO DAILY 10/03/20 05/23/24 History tablet furosemide 40 mg tablet 40 mg PO DAILY PRN depends on work 08/01/22 Unknown Rx schedule #90 tabs cholecalciferol (vitamin D3) 1,250 1,250 mcg PO QWEEK 06/05/23 05/22/24 History mcg (50,000 unit) tablet ciprofloxacin HCl 500 mg tablet 500 mg PO Q24H 06/05/23 05/23/24 History doxycycline hyclate 100 mg capsule 100 mg PO DAILY 06/05/23 05/23/24 History metformin 1,000 mg tablet 1,000 mg PO BID 06/05/23 05/23/24 History tamsulosin 0.4 mg capsule 0.4 mg PO DAILY 06/05/23 05/23/24 History atorvastatin 80 mg tablet 80 mg PO QHS #90 tabs 09/01/23 05/23/24 Rx carvedilol 6.25 mg tablet 6.25 mg PO BID #180 tabs 09/01/23 05/23/24 Rx potassium chloride 20 mEq 20 meq PO DAILY #90 tabs 09/01/23 05/23/24 Rx tablet,extended release(part/cryst) (Klor-Con M) losartan 50 mg tablet 50 mg PO BID #180 tabs 10/01/23 05/23/24 Rx apixaban 5 mg tablet (Eliquis) See Rx Instructions .Route 03/31/24 05/23/24 Rx .COMPLEX #60 tabs oxycodone-acetaminophen 5 mg-325 1 tab PO 4X/DAY PRN PRN pain 05/24/24 05/23/24 History mg tablet Allergy/AdvReac Type Severity Reaction Status Date / Time bee venom protein (honey AdvReac Hives Verified 06/05/23 10:11 bee) (bee sting) clarithromycin (From Biaxin) AdvReac Other Verified 06/05/23 10:11 Family History Brother CAD (coronary artery disease) Myocardial infarction Father CAD (coronary artery disease) Surgical History S/P cervical spinal fusion History of repair of right rotator cuff History of cardioversion History of total bilateral knee replacement H/O knee surgery (09/12/22) H/O repair of right rotator cuff History of coronary artery stent placement (11/08/16) Social History Smoking Status: Never smoker alcohol intake: never substance use type: does not use caffeine: Yes Type: carbonated beverages Number of servings: 1 what type of physical activity do you participate in: walking frequency: daily duration: other details: active throughout the day seatbelt use: always do you feel safe at home: Yes Review of Systems (Anesthesia) ROS Narrative System reviewed and no additional complaints, except as documented.
--- NOTE | 2024-05-26 12:50 | ANES.CONFIRM ---
Anesthesia: Confirm Documents Multiple Procedures on Account (2) Confirmed Documents: Yes
--- NOTE | 2024-05-26 13:26 | PCM.POST.ANE ---
Anesthesia: Postop Eval I Current Vital Signs Temperature: 98.5 F Pulse Rate: 70 Blood Pressure: 151/69 Respiratory Rate: 16 Pulse Ox: 96 Oxygen Delivery Method: Room Air Assessment Airway patent: Yes Spontaneous unlabored respirations: Yes Mental status: Asleep nausea: No Vomiting: No Anesthesia Complication: No Fluid Hydration Crystalloid volume administer (ml): 40 Total IV fluid infused: 40 Progress Note Anesthesia document: Postop Eval 1 completed: Yes
--- NOTE | 2024-05-26 13:28 | OP.EGD_ITS ---
Patient Name: Jack Small Procedure Date: 05/26/2024 12:54 PM Date of : 1955 Age: 68 Procedure: Upper GI endoscopy Indications: Melena Providers: Anibal Cuadra DO Medicines: Monitored Anesthesia Care Patient Profile: This is a 68 year old male. Refer to note in patient chart for documentation of history and physical. Patient has symptoms. Complications: No immediate complications. Procedure: Pre-Anesthesia Assessment: - Prior to the procedure, a History and Physical was performed, and patient medications and allergies were reviewed. The patient is competent. The risks and benefits of the procedure and the sedation options and risks were discussed with the patient. All questions were answered and informed consent was obtained. Patient identification and proposed procedure were verified by the physician in the pre-procedure area. Mental Status Examination: alert and oriented. Airway Examination: normal oropharyngeal airway and neck mobility. Respiratory Examination: clear to auscultation. CV Examination: normal. Prophylactic Antibiotics: The patient does not require prophylactic antibiotics. Prior Anticoagulants: The patient has taken no anticoagulant or antiplatelet agents except for NSAID medication. ASA Grade Assessment: II - A patient with mild systemic disease. After reviewing the risks and benefits, the patient was deemed in satisfactory condition to undergo the procedure. The anesthesia plan was to use monitored anesthesia care (MAC). Immediately prior to administration of medications, the patient was re-assessed for adequacy to receive sedatives. The heart rate, respiratory rate, oxygen saturations, blood pressure, adequacy of pulmonary ventilation, and response to care were monitored throughout the procedure. The physical status of the patient was re-assessed after the procedure. After obtaining informed consent, the endoscope was passed under direct vision. Throughout the procedure, the patient's blood pressure, pulse, and oxygen saturations were monitored continuously. The gastroscope was introduced through the mouth, and advanced to the second part of duodenum. The upper GI endoscopy was accomplished without difficulty. The patient tolerated the procedure well. Scope In: 1:09:56 PM Scope Out: 1:16:31 PM Total Procedure Duration Time 0 hours 6 minutes 35 seconds Findings: The examined esophagus was normal. A medium-sized hiatal hernia was present. No other significant abnormalities were identified in a careful examination of the stomach. One non-bleeding cratered duodenal ulcer with a visible vessel was found in the first portion of the duodenum. The lesion was 6 mm in largest dimension. Coagulation for bleeding prevention using argon plasma at 0.3 liters/minute and 30 anderson was successful. Estimated blood loss: none. Impression: - Normal esophagus. - Medium-sized hiatal hernia. - Non-bleeding duodenal ulcer with a visible vessel. Treated with argon plasma coagulation (APC). - No specimens collected. Recommendation: - Discharge patient to home. - Advance diet as tolerated. - Continue present medications. Procedure Code(s): --- Professional --- 09996, Esophagogastroduodenoscopy, flexible, transoral; with control of bleeding, any method CPT copyright 2021 [employer]. All rights reserved. The codes documented in this report are preliminary and upon wharf attendant review may be revised to meet current compliance requirements. Anibal Cuadra DO 05/26/2024 1:27:22 PM This report has been signed electronically. Number of Addenda: 0 Note Initiated On: 05/26/2024 12:54 PM
--- NOTE | 2024-05-26 13:28 | OP.CCLET_ITS ---
05/26/2024 Yaneth Maldonado Re : Upper GI endoscopy procedure for Jack Small Dear Erica This procedure was performed on Sunday, May 26, 2024. My impressions and recommendations are as follows: Impressions : - Normal esophagus. - Medium-sized hiatal hernia. - Non-bleeding duodenal ulcer with a visible vessel. Treated with argon plasma coagulation (APC). - No specimens collected. Recommendations : - Discharge patient to home. - Advance diet as tolerated. - Continue present medications. My findings are described in the full procedure note, which is enclosed. If I can be of further assistance, please feel free to contact me at . Sincerely, Anibal Cuadra, 05/26/2024 1:27:22 PM This report has been signed electronically.
--- NOTE | 2024-05-26 14:11 | PCM.POSTANE2 ---
Anesthesia Postop Eval I Sum Postop Eval Completion status Anesthesia document: Postop Eval 1 completed: Yes Anesthesia Postop Eval I Summary Anesthesia Postop Eval I Summary: Anesthesia Postop Eval I: Assessment Summary Airway patent Yes 05/26/24 13:26 [email or web address] Spontaneous unlabored Yes 05/26/24 13:26 [email or web address] respirations Mental status Asleep 05/26/24 13:26 [email or web address] nausea No 05/26/24 13:26 [email or web address] Vomiting No 05/26/24 13:26 [email or web address] Anesthesia Postop Eval I: Fluid Summary Crystalloid volume administer 40 05/26/24 13:26 [email or web address] (ml) Colloids volume administered ( ml) Blood Product volume administered (ml) Total IV fluid infused 40 05/26/24 13:26 [email or web address] Anesthesia Postop Eval I: Summary Notes Anesthesia Complication No 05/26/24 13:26 [email or web address] Anesthesia Complication Comment: Post-operative progress note Anesthesia: Postop Eval II Evaluation Mental status: Awake Pain Level: 0 nausea: No Vomiting: No
--- NOTE | 2024-05-26 14:13 | ANES.CONFIRM ---
Anesthesia: Confirm Documents Multiple Procedures on Account (2) Confirmed Documents: Yes
[2024-05-26] MEDS: Ondansetron 4 MG/2 ML Vial IV (15:31)
[2024-05-26 15:52] LABS: Bedside Glucose 135 mg/dL (74-106)
[2024-05-26 16:41] LABS: Hematocrit 26.5 % (40-54)
--- NOTE | 2024-05-26 16:56 | PCM.DC ---
Discharge Instructions Diet Discharge Diet: No restrictions Activity Discharge Activity: Return to Normal Activity Weight Bearing Status: Full weight bearing Follow Up Care Test Results: Test results from this visit will be discussed in further detail at your follow-up appointment, if applicable. 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, take 1 twice a day, your stools will be black while you are on this medication, take this medication for 30 days Discharge Orders/Prescriptions Prescriptions: New pantoprazole [Protonix] 40 mg tablet,delayed release (DR/EC) 40 mg PO BID Qty: 60 0RF clopidogrel [Plavix] 75 mg tablet 75 mg PO DAILY Qty: 30 0RF Rx Instructions: Start on 06/09/2024 Continued dapagliflozin propanediol 10 mg tablet 10 mg PO DAILY cholecalciferol (vitamin D3) 1,250 mcg (50,000 unit) tablet 1,250 mcg PO QWEEK metformin 1,000 mg tablet 1,000 mg PO BID Patient Comments: TAKE 1 TABLET BY MOUTH TWICE A DAY ciprofloxacin HCl 500 mg tablet 500 mg PO Q24H Patient Comments: TAKE 1 TABLET BY MOUTH TWICE A DAY doxycycline hyclate 100 mg capsule 100 mg PO DAILY Patient Comments: TAKE 1 CAPSULE BY MOUTH EVERY DAY tamsulosin 0.4 mg capsule 0.4 mg PO DAILY oxycodone-acetaminophen 5-325 mg tablet 1 tab PO 4X/DAY PRN PRN (Reason: pain) furosemide 40 mg tablet 40 mg PO DAILY PRN (Reason: depends on work schedule) Qty: 90 3RF atorvastatin 80 mg tablet 80 mg PO QHS Qty: 90 3RF carvedilol 6.25 mg tablet 6.25 mg PO BID Qty: 180 3RF potassium chloride [Klor-Con M20] 20 mEq tablet,ER particles/crystals 20 meq PO DAILY Qty: 90 3RF losartan 50 mg tablet 50 mg PO BID Qty: 180 3RF Held Eliquis 5 mg tablet See Rx Instructions .ROUTE .COMPLEX Qty: 60 12RF Hold Instructions: Hold Eliquis until 06/02/2024-resume it at 5 mg twice a day Dose Instruction: TAKE 1 TABLET BY MOUTH TWICE A DAY Rx Instructions: TAKE 1 TABLET BY MOUTH TWICE A DAY Discontinued aspirin 81 MG tablet 81 mg PO DAILY@0800 Qty: 30 11RF Referrals / Follow Up: Yaneth Maldonado DO [Primary Care Provider] - Within 2 Weeks Disposition Disposition (needs filled in before D/C Order can be placed): Home, Self Care
--- NOTE | 2024-05-26 17:01 | DS.PCM_ITS ---
Providers Date of Admission: 05/24/24 Date of Discharge: 05/26/24 Primary Care Physician: Dr. Yaneth Maldonado, DO Consultations 05/24/24 12:49 Consult: Gastroenterology Routine Consulting Provider: [facility] Reason for Consult: gi bleed EMERGENT Consult: No MD Notified: Yes Date Notified: 05/24/24 Time Notified: 11:50 Method of Notification: Verbal Reason For Visit: UPPER GI BLEED Diagnosis Discharge Diagnosis (1) Acute upper GI bleed: Status: Acute Code(s): K92.2 - Gastrointestinal hemorrhage, unspecified Plan 1. Upper GI hemorrhage-secondary to duodenal ulcer most likely secondary to nonsteroidal anti-inflammatory usage on a backdrop of chronic anticoagulation with Eliquis-patient's hemoglobin will be rechecked this evening, patient may undergo repeat EGD today #2 acute blood loss anemia-requiring blood transfusion #3 chronic pain due to chronic osteomyelitis of the right knee and failed right knee surgery-patient has been cautioned about using any type of nonsteroidal anti-inflammatory agents or aspirin above 81 mg daily. #4 coronary artery disease-this appears to be stable at this time, patient's medications will be held due to his n.p.o. status #5 type 2 diabetes-patient's blood sugars will be monitored, sliding scale insulin will be administered as needed #6 morbid obesity-complicates care, management, recovery, and prognosis #7 hypertension-patient's blood pressure medications will be held for now due to his n.p.o. status #8 chronic osteomyelitis of the right knee-patient is currently on chronic oral Cipro and doxycycline, these will be held due to the patient's n.p.o. status. #9 paroxysmal [id number]'s carvedilol and Eliquis will be held at this time due to his n.p.o. status and GI bleed Total clinical time spent by myself addressing the patient's medical issues, reviewing all of his data, and collaborating with patient's care team: 35 minutes Medications at Discharge Home Medications dapagliflozin propanediol 10 mg tablet 10 mg PO DAILY 10/03/20 furosemide 40 mg tablet 40 mg PO DAILY PRN depends on work schedule #90 tabs 08/01/22 cholecalciferol (vitamin D3) 1,250 mcg (50,000 unit) tablet 1,250 mcg PO QWEEK 06/05/23 ciprofloxacin HCl 500 mg tablet 500 mg PO Q24H 06/05/23 doxycycline hyclate 100 mg capsule 100 mg PO DAILY 06/05/23 metformin 1,000 mg tablet 1,000 mg PO BID 06/05/23 tamsulosin 0.4 mg capsule 0.4 mg PO DAILY 06/05/23 atorvastatin 80 mg tablet 80 mg PO QHS #90 tabs 09/01/23 carvedilol 6.25 mg tablet 6.25 mg PO BID #180 tabs 09/01/23 potassium chloride 20 mEq tablet,extended release(part/cryst) (Klor-Con M) 20 meq PO DAILY #90 tabs 09/01/23 losartan 50 mg tablet 50 mg PO BID #180 tabs 10/01/23 apixaban 5 mg tablet (Eliquis) See Rx Instructions .Route .COMPLEX #60 tabs 03/31/24 oxycodone-acetaminophen 5 mg-325 mg tablet 1 tab PO 4X/DAY PRN PRN pain 05/24/24 clopidogrel 75 mg tablet (Plavix) 75 mg PO DAILY #30 tabs 05/26/24 pantoprazole 40 mg tablet,delayed release (Protonix) 40 mg PO BID #60 tabs 05/26/24 Hospital Course Operations None Procedures EGD Summary of Care Provided Minutes Spent on Discharge: 32 Hospital Course: This 68-year-old white male was seen in the emergency room at [facility] with complaints of vomiting blood, he also complained of a dark red/maroon stool that morning. Patient related to the fact he was taking large amounts of ibuprofen on a daily basis due to chronic knee pain and he was also on Eliquis and aspirin. Workup in the ER revealed his blood pressures to be in the 80s and 90s systolic, patient was given IV fluids and his hemoglobin was shown to be 10.6. BUN was elevated at 40 and blood sugar was 268 patient's lipase was elevated at 534 but he was not felt to have pancreatitis. CT of the abdomen and pelvis was obtained which showed a fluid distended stomach with a soft tissue density along the dependent portion of the fundal portion of the stomach. Gastroenterology was contacted, they advised giving the patient Kcentra and the second hemoglobin was done in the emergency room several hours later which showed little drop in the patient's hemoglobin. Patient was admitted to PCU under telemetry and hemoglobins were monitored, patient was placed on a Protonix drip and underwent an EGD which showed a bleeding duodenal ulcer. Patient returned to his room and hemoglobin is continued to be monitored, the following day, the patient was noted to have a drop in his hemoglobin he was given a transfusion of 1 unit of red blood cells and ultimately underwent a repeat colonoscopy on 05/26/2024 which showed a nonbleeding cratered duodenal ulcer with visible vessel. On 05/26/2024, patient was seen and examined: On examination he appeared in good health and spirits. Vital signs as documented. Skin warm and dry and without overt rashes. Neck without JVD, neck was supple, trachea midline, thyroid was normal. Lungs clear bilaterally, normal air movement was noted. Heart exam notable for regular rhythm, normal sounds and absence of murmurs, rubs or gallops. Abdomen unremarkable and without evidence of organomegaly, masses, or abdominal aortic enlargement. Bowel sounds are present, abdomen is not distended. Extremities nonedematous, no cyanosis was noted, no clubbing was noted. Neuro: Cranial nerves II through XII are grossly intact, no focal motor deficits were noted, sensation to light touch and pinprick intact, motor exam 5/5 throughout. Psych: Patient is alert and oriented x3, he does not appear anxious or depressed, he does not appear agitated. Patient appears stable for discharge home on 05/26/2024, he was cautioned against using any nonsteroidal anti-inflammatory agents while he was on Eliquis. Patient was instructed to resume his Eliquis in a week and he was placed on Plavix to start in 2 weeks. I talked to his maintenance advisor by phone concerning this regimen. Weight / BMI Weight Weight: 162.4 kg Body Mass Index (BMI) 42.4 ABG / Lab / Microbiology Data 05/26/24 16:30 05/24/24 08:40 Laboratory: Laboratory Results - last 24 hr 05/24/24 08:40: Crossmatch See Detail 05/25/24 20:07: Hgb 8.0 L, Hct 25.4 L 05/25/24 22:44: POC Glucose 155 H 05/26/24 05:44: Hgb 7.8 L, Hct 24.6 L 05/26/24 06:07: POC Glucose 143 H 05/26/24 15:25: POC Glucose 135 H 05/26/24 16:30: Hgb 8.0 L, Hct 26.5 L D/C Instructions Discharge Diet: No restrictions Weight Bearing Status: Full weight bearing Meaningful Use Info Meaningful Use Meaningful Use Diagnoses (Choose all that apply): None applicable Ischemic Stroke Statin Dosing Therapy Reference: STATIN DOSE THERAPY REFERENCE: * Patients > 75 years receive moderate or high dose statin therapy. * Patients 75 years or YOUNGER should receive HIGH intensity statin dose unless contraindicated. You will be required to document reason for non-treatment if statin daily dose does not meet guidelines. 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, take 1 twice a day, your stools will be black while you are on this medication, take this medication for 30 days Discharge Orders/Prescriptions Prescriptions: New pantoprazole [Protonix] 40 mg tablet,delayed release (DR/EC) 40 mg PO BID Qty: 60 0RF clopidogrel [Plavix] 75 mg tablet 75 mg PO DAILY Qty: 30 0RF Rx Instructions: Start on 06/09/2024 Continued dapagliflozin propanediol 10 mg tablet 10 mg PO DAILY cholecalciferol (vitamin D3) 1,250 mcg (50,000 unit) tablet 1,250 mcg PO QWEEK metformin 1,000 mg tablet 1,000 mg PO BID Patient Comments: TAKE 1 TABLET BY MOUTH TWICE A DAY ciprofloxacin HCl 500 mg tablet 500 mg PO Q24H Patient Comments: TAKE 1 TABLET BY MOUTH TWICE A DAY doxycycline hyclate 100 mg capsule 100 mg PO DAILY Patient Comments: TAKE 1 CAPSULE BY MOUTH EVERY DAY tamsulosin 0.4 mg capsule 0.4 mg PO DAILY oxycodone-acetaminophen 5-325 mg tablet 1 tab PO 4X/DAY PRN PRN (Reason: pain) furosemide 40 mg tablet 40 mg PO DAILY PRN (Reason: depends on work schedule) Qty: 90 3RF atorvastatin 80 mg tablet 80 mg PO QHS Qty: 90 3RF carvedilol 6.25 mg tablet 6.25 mg PO BID Qty: 180 3RF potassium chloride [Klor-Con M20] 20 mEq tablet,ER particles/crystals 20 meq PO DAILY Qty: 90 3RF losartan 50 mg tablet 50 mg PO BID Qty: 180 3RF Held Eliquis 5 mg tablet See Rx Instructions .ROUTE .COMPLEX Qty: 60 12RF Hold Instructions: Hold Eliquis until 06/02/2024-resume it at 5 mg twice a day Dose Instruction: TAKE 1 TABLET BY MOUTH TWICE A DAY Rx Instructions: TAKE 1 TABLET BY MOUTH TWICE A DAY Discontinued aspirin 81 MG tablet 81 mg PO DAILY@0800 Qty: 30 11RF Referrals / Follow Up: Yaneth Maldonado DO [Primary Care Provider] - Within 2 Weeks Disposition Disposition (needs filled in before D/C Order can be placed): Home, Self Care Charges/Coding Visit Charges Inpatient E&M: 69885 Disch Hosp >30min
== END 2024-05-26 19:00 | disposition home or self-care (01) | DRG 378 ==
LOC: ED 10:28 → PCU 12:15
PROVIDERS: Internal Medicine Gastroenterology; Admitting Provider Internal Medicine; Emergency Provider Emergency Medicine; Visit Provider Internal Medicine
PROC: 0DJ08ZZ Inspection of Upper Intestinal Tract, Via Natural or Artificial Opening Endoscopic (ICD-10-PCS; CPT 43235; principal; 2024-05-24 16:25)
DX: K26.4 Chronic or unspecified duodenal ulcer with hemorrhage (principal); D68.32 Hemorrhagic disorder due to extrinsic circulating anticoagulants; Z68.41 Body mass index [BMI] 40.0-44.9, adult; M86.68 Other chronic osteomyelitis, other site; D62 Acute posthemorrhagic anemia; E11.69 Type 2 diabetes mellitus with other specified complication; I10 Essential (primary) hypertension; I48.0 Paroxysmal atrial fibrillation; E66.01 Morbid (severe) obesity due to excess calories; E78.5 Hyperlipidemia, unspecified; I25.10 Atherosclerotic heart disease of native coronary artery without angina pectoris; K44.9 Diaphragmatic hernia without obstruction or gangrene; I25.2 Old myocardial infarction; T45.515A Adverse effect of anticoagulants, initial encounter; G89.4 Chronic pain syndrome; Z95.5 Presence of coronary angioplasty implant and graft; Z96.653 Presence of artificial knee joint, bilateral; Z79.01 Long term (current) use of anticoagulants; Z79.1 Long term (current) use of non-steroidal anti-inflammatories (NSAID); Z79.2 Long term (current) use of antibiotics; Z79.84 Long term (current) use of oral hypoglycemic drugs; Z79.899 Other long term (current) drug therapy; Z86.711 Personal history of pulmonary embolism; Z86.718 Personal history of other venous thrombosis and embolism; Z23 Encounter for immunization
CPT/HCPCS: 36415; 74177; 80053; 82962; 83605; 83690; 85014; 85018; 85025; 85610; 86850; 86900; 86901; 86920; 90662; 99285; J7030; J7120; P9016; Q9967; A4216; C9159; J2405

== ENCOUNTER → 2024-09-18 | Outpatient (CLI) | payer MEDICARE, OTHER, SELFPAY ==
[2016-11-08 15:12] VITALS: BMI 44.6
[2024-09-18 10:30] LABS: Absolute Lymphocyte Count 0.99 X10^3/uL (0.83-4.51); Absolute Neutrophil Count 3.8 X10^3/uL (2.0-7.7); Basophil# 0.02 X10^3/uL; Basophil% 0.4 % (0-1); Eosinophil# 0.13 X10^3/uL; Eosinophils% 2.4 % (0-5); Hemoglobin 9.9 g/dL (13.0-16.5); Lymphocyte # 0.99 X10^3/ul (0.83-4.51); Lymphocyte % 18.3 % (19-41); Mean Corp Hgb Conc 28.3 g/dL (32-36); Mean Corpuscular Hgb 20.9 pg (27.0-32.0); Mean Corpuscular Volume 73.8 fL (80-94); Monocyte# 0.49 X10^3/uL; Monocyte% 9.1 % (0-10); NRBC Flagged by Analyzer 0 % (0-5); Neutrophil # 3.77 X10^3/uL (2.7-7.7); Neutrophil % 69.6 % (47-70); Platelet Count 310 K/mm3 (150-450); RBC Distribution Width CV 18.7 % (11.6-14.6); RBC Distribution Width SD 49.5 fl (35.1-43.9); Red Blood Count 4.74 M/mm3 (4.6-6.2); White Blood Count 5.4 K/mm3 (4.4-11.0)
[2024-09-18 10:36] LABS: Erythrocyte Sedimentation Rate 33 mm/hr (0-20)
[2024-09-18 10:59] LABS: Albumin, Serum 3.2 g/dL (3.2-5.0); BUN 24 mg/dL (7-18); BUN/Creat Ratio 27.5 RATIO (10-20); CRP 9.91 mg/L (0.0-3.0); Calcium,Total 9.4 mg/dL (8.5-10.1); Chloride 107 mmol/L (98-107); Creatinine, Serum 0.87 mg/dL (0.70-1.30); EST Glomerular Filtration Rate 93 mL/min (>60); Est Glom Filt Rate - Afr Amer 112 mL/min (>60); Glucose 210 mg/dL (74-106); Phosphorus 3.2 mg/dL (2.5-4.9); Sodium Level 140 mmol/L (136-145)
[2024-09-20 14:09] LABS: PSA, Free 0.86 ng/mL; PSA, Free % 24.6 % (.)
== END | disposition home or self-care (01) ==
LOC: LAB 10:00
PROVIDERS: Referring Provider Nurse Practitioner; Visit Provider Urology
DX: R97.20 Elevated prostate specific antigen [PSA] (principal)
CPT/HCPCS: 36415; 80069; 84153; 84154; 85025; 85652; 86140

== ENCOUNTER → 2024-09-20 | Outpatient (CLI) | payer MEDICARE, OTHER, SELFPAY ==
[2016-11-08 15:12] VITALS: BMI 44.6
--- NOTE | 2024-09-18 10:20 | RAD_ITS ---
PROCEDURE: ABDOMEN SINGLE VIEW REASON FOR EXAM: MRI clearance for abdominal clip TECHNIQUE: Single view abdomen. COMPARISON: None FINDINGS: Bowel gas pattern is normal. No evidence of bowel obstruction. Moderate amount of stool noted throughout the colon. No suspicious calcifications. No radiopaque foreign body Degenerative changes are noted in the spine and hips. RAD/Abdomen Single View IMPRESSION: 1. No radiopaque foreign body in the abdomen. 2. Moderate amount of stool in the colon. Correlate with constipation Reading Location: [facility]
--- NOTE | 2024-09-20 07:55 | MRI_ITS ---
PROCEDURE: PELVIS W/WO CONTRAST REASON FOR EXAM: Elevated PSA. TECHNIQUE: Multiplanar, multisequence MRI of the prostate was performed before and following intravenous gadolinium-based contrast. Axial, coronal, and sagittal high-resolution T2-weighted images, axial T1-weighted images, diffusion-weighted images with high B value, and dynamic postcontrast fat saturated T1-weighted images were performed. CONTRAST: 30 mL Clariscan intravenously. COMPARISON: None. FINDINGS: Peripheral Zone: BPH is noted. A focal mass is seen in the periphery of the midportion of the prostate and measures 2.2 x 1.9 x 2.6 cm. An additional mass at the left aspect in the midportion measures 0.9 x 1.5 x 1.5 cm. The masses abut but do not appear to invade the capsule. Transitional Zone: Heterogeneous signal intensity in a pattern suggesting benign prostatic hyperplasia. Seminal vesicles: Normal and symmetric. Neurovascular bundles: There is asymmetric infiltration along the region of the right neurovascular bundle. Lymph nodes: Enlarged pelvic nodes including right inguinal node measuring 1 cm in short axis in the bilateral external iliac nodes, larger on the right side measuring 1.8 cm in short axis. Bone marrow: No suspicious lesions. MRI/Pelvis W/WO Contrast IMPRESSION: OVERALL PI-RADS SCORE: 5, VERY HIGH LIKELIHOOD FOR CLINICALLY SIGNIFICANT CANCE R. MULTIPLE BILATERAL NODULES IN THE PERIPHERAL ZONE WHICH ABUT THE CAPSULE BUT DO NOT APPEAR TO INVADE IT, COMPATIBLE WITH PROSTATE CARCINOMA. PROBABLE INVOLVEMENT OF THE RIGHT NEUROVASCULAR BUNDLE. ENLARGED RIGHT INGUINAL AND EXTERNAL ILIAC LYMPH NODES ARE SUSPICIOUS FOR AMBER METASTASES Reading Location: [id number]
== END | disposition home or self-care (01) ==
LOC: MRI 07:50
PROVIDERS: Referring Provider Urology; Visit Provider Urology
DX: R97.20 Elevated prostate specific antigen [PSA] (principal)
CPT/HCPCS: 72197; 74018; A9575

== ENCOUNTER 2024-11-17 08:22 | Day surgery (SDC) | payer MEDICARE, OTHER, SELFPAY ==
[2016-11-08 15:12] VITALS: BMI 44.6
--- NOTE | 2024-10-13 15:26 | PAT.ANESEVAL ---
Pre-Assessment Diagnosis/Proposed Procedure Planned Operative Procedure(s): Ultrasound Guided Prostate Biopsy Anesthesia History Anesthesia History - women's activities adviser: Anesthesia History - women's activities adviser Hx Hospitalization Yes: GI BLEED - BLEEDING 10/13/24 09:18 ULCERS Any Problems With Anesthesia No 10/13/24 09:18 Cholinesterase deficiency No 10/13/24 09:18 You/Your Family Experience No 10/13/24 09:18 fever (hyperthermia) with Relationship Recent Exposure to Contagious No 02/08/14 11:39 Disease Does patient have nerve No 10/13/24 09:18 stimulator Patient instructed to have device shut off --Does patient have Pacemaker or ICD? When Was Last Pacemaker Check QUESTION #4 FULL TEXT: You/Your Family Experience fever (hyperthermia) with Anesthesia Last Oral Intake Last Oral intake: Last Oral Intake NPO since Meds taken in AM with sips of water? Meds patient instructed to take am of surgery PONV PONV - women's activities adviser: PONV - women's activities adviser Female No 10/13/24 09:18 HX of Motion Sickness No 10/13/24 09:18 HX of N/V After Surgery No 10/13/24 09:18 Non-Smoker Yes 10/13/24 09:18 Duration of Surgery greater No 10/13/24 09:18 than 60 minutes Number of Risk Factors 1 10/13/24 09:18 PONV Score Low Risk 10/13/24 09:18 Height & Weight Height & Weight: Anesthesia: Height & Weight Height 6 ft 4 in 08/10/24 13:04 Respiratory Assessment Respiratory Assessment - women's activities adviser: Respiratory Tract Infection Hx - women's activities adviser Hx Respiratory Tract Infection No 10/13/24 09:18 STOP Sleep Apnea STOP Sleep Apnea - women's activities adviser: STOP Sleep Apnea - women's activities adviser Hx Hypertension Yes: CONTROLLED WITH MED 10/13/24 09:18 Hx Sleep Apnea Yes 10/13/24 09:18 CPAP Yes 10/13/24 09:18 BIPAP No 10/13/24 09:18 Do you snore loudly (louder than talking or can be heard Do you often feel tired/ fatigued/ sleepy during daytime? Has anyone observed you stop breathing during sleep? STOP Results Positive 10/13/24 09:18 QUESTION #5 FULL TEXT : Do you snore loudly (louder than talking or can be heard through closed doors)? Tobacco Use History Tobacco Use History - women's activities adviser: Tobacco Use History - women's activities adviser Tobacco Use Smoking Status Never smoker 10/13/24 09:18 Hx Tobacco Use No 10/13/24 09:18 Years Smoking Packs Smoked per Day Smoking Cessation Date was within the last 15 years Hx Smoking Cessation Date Hx Smoking Cessation Counseling Hematologic Medial History Hematologic Hx - women's activities adviser: Hematologic Medical Hx - cupola liner Hx of Blood Transfusion Yes 10/13/24 09:18 Hx of Transfusion in last 3 No 10/13/24 09:18 Months Date of Last Transfusion (if within last 3 months) Ever experience any problems No 10/13/24 09:18 with transfusion(s)? Specify any problems Hx of Preganancy in last 3 N/A 10/13/24 09:18 Months Nurse Filling Out Transfusion [facility] 10/13/24 09:18 & Questions: Date: 10/13/24 10/13/24 09:18 Time: 09:20 10/13/24 09:18 Patient unable to answer at this time (ie. confused, unrespo /Reproduction History /Reproductive History - women's activities adviser: /Reproductive Hx- women's activities adviser Hx Now No 10/13/24 09:18 Gestational Age (in weeks): EDC: Hx Hx Para Hx Section SAB No 10/13/24 09:18 [facility] Medical History (Updated 10/13/24 @ 09:28 by Joann Kat) Wears hearing aid Loss of hearing Wears glasses Arthritis Walker as ambulation aid Prostate disease High cholesterol Pulmonary embolism DVT (deep venous thrombosis) Migraine headache History of ulceration History of GI bleed CPAP (continuous positive airway pressure) dependence Sleep apnea Non-smoker History of edema History of echocardiogram History of stress test Cardiology follow-up encounter History of coronary artery disease Hx pulmonary embolism Hypotension Acute upper GI bleed Essential hypertension Diabetes mellitus with multiple complications Lymphedema Leg edema Leg swelling Obstructive sleep apnea on CPAP History of pulmonary embolism (01/2014) History of deep vein thrombosis (DVT) of lower extremity (04/2013) History of ST elevation myocardial infarction (STEMI) (09/2016) Cardiomyopathy, ischemic Bifascicular block Right bundle branch block Nonsustained ventricular tachycardia 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) Type 2 diabetes mellitus without complications Atherosclerosis of coronary artery of [place] heart without angina pectoris Hyperlipidemia Pulmonary embolism, bilateral (2013) Obesities, morbid Sleep apnea Home Medications ?Medication ?Instructions ?Recorded ?Last Taken ?Type dapagliflozin propanediol 10 mg 10 mg PO DAILY 10/03/20 05/23/24 History tablet cholecalciferol (vitamin D3) 1,250 1,250 mcg PO QWEEK 06/05/23 05/22/24 History mcg (50,000 unit) tablet ciprofloxacin HCl 500 mg tablet 500 mg PO DAILY 06/05/23 05/23/24 History doxycycline hyclate 100 mg capsule 100 mg PO DAILY 06/05/23 05/23/24 History metformin 1,000 mg tablet 1,000 mg PO BID 06/05/23 05/23/24 History tamsulosin 0.4 mg capsule 0.4 mg PO DAILY 06/05/23 05/23/24 History oxycodone-acetaminophen 5 mg-325 1 tab PO 4X/DAY PRN PRN pain 05/24/24 05/23/24 History mg tablet clopidogrel 75 mg tablet 75 mg PO QDAY 08/10/24 Unknown History furosemide 40 mg tablet 40 mg PO DAILY PRN depends on work 08/23/24 Unknown Rx schedule #90 tabs apixaban 5 mg tablet (Eliquis) 5 mg PO BID #180 tabs 08/26/24 Unknown Rx atorvastatin 80 mg tablet 80 mg PO QHS #90 TABLETS 08/26/24 Unknown Rx carvedilol 6.25 mg tablet 6.25 mg PO BID #180 TABLETS 08/26/24 Unknown Rx losartan 50 mg tablet 50 mg PO BID #180 TABLETS 08/26/24 Unknown Rx pantoprazole 40 mg tablet,delayed 40 mg PO BID #180 tabs 08/26/24 Unknown Rx release (Protonix) potassium chloride 20 mEq 20 meq PO DAILY #90 TABLETS 08/26/24 Unknown Rx tablet,extended release(part/cryst) (Klor-Con M) Allergy/AdvReac Type Severity Reaction Status Date / Time bee venom protein (honey AdvReac Hives Verified 10/13/24 09:12 bee) (bee sting) clarithromycin (From Biaxin) AdvReac Other Verified 10/13/24 09:12 Family History Brother CAD (coronary artery disease) Myocardial infarction Father CAD (coronary artery disease) Surgical History (Updated 03/19/25 @ 09:28 by Joann Kat) History of left knee replacement (~2007) History of right knee joint replacement S/P cervical spinal fusion (~1999) History of repair of right rotator cuff History of cardioversion History of total bilateral knee replacement H/O knee surgery (09/12/22) H/O repair of right rotator cuff History of coronary artery stent placement (11/08/16) Social History Smoking Status: Never smoker alcohol intake: never substance use type: does not use caffeine: Yes Type: carbonated beverages Number of servings: 1 what type of physical activity do you participate in: walking frequency: daily duration: other details: active throughout the day seatbelt use: always do you feel safe at home: Yes Audit: Pertinent Findings Pertinent Findings EKG Perinent findings: April 03, 2021. Sinus rhythm?first-degree AV block. Right bundle branch block and right axis. Possible right ventricular hypertrophy?consider pulmonary disease. Stress test pertinent findings: December 18, 2020. Ejection fraction is 57%. Patient has an apical infarct. No ischemia was present. Echo (EF%) pertinent findings: December 18, 2020. Ejection fraction 60%. Valves were not well-visualized. Consult pertinent findings: August 10, 2024. Dr. Amado. 1. History of coronary artery stent placement chronic. Drug-eluting stent to the mid LAD. NERIS x 2 to the left circumflex. And NERIS to the ostial OM2. Stable at this time. 2. Paroxysmal atrial fibrillation-chronic. Cardioversion was performed February 2021. Patient is maintaining sinus rhythm at this time. Continue carvedilol and Eliquis. 3. [id number] Recommendation Anesthesia Recommendation Anesthesia recommendation: OPTIMIZED for anesthesia
--- NOTE | 2024-10-27 10:30 | PCM.PRE.AN2 ---
ASA Classification* ASA Classification ASA Classification: 3 Assessment & Plan Anesthesia* Anesthesia Assessment Anesthesia Assessment: Discussed sedation and/or anesthesia options, risks, benefits, and alternatives with patient/parents/legal guardian/POA. Questions invited. The patient/parents/legal guardian/POA seems to understand and agrees to proceed with anesthesia plan. Reviewed the physical assessment, medical history, allergy history and patient home medications list prior to surgery/procedure/anesthetic and documented any changes. Performed airway and anesthesia risk assessments. Anesthesia Type Anesthesia Type: General Anesthesia Focused Assessment* Airway Assessment Mouth opens: >3 cm Mallampati Score: II Focused Labs Anesthesia Preop lab: CBC WBC 5.4 K/mm3 (4.4-11.0) 09/18/24 10:01 09/18/24 RBC 4.74 M/mm3 (4.6-6.2) 09/18/24 10:09/18/24 Hgb 9.9 g/dL (13.0-16.5) L 09/18/24 10:01 09/18/24 Hct 35.0 % (40-54) L 09/18/24 10:01 09/18/24 Plt Count 310 K/mm3 (150-450) 09/18/24 10:09/18/24 CHEMISTRY Potassium 4.0 mmol/L (3.5-5.1) 09/18/24 10:01 09/18/24 Sodium 140 mmol/L (136-145) 09/18/24 10:01 09/18/24 Magnesium 2.0 mg/dL (1.8-2.4) 10/13/16 10:12 10/13/16 Phosphorus 3.2 mg/dL (2.5-4.9) 09/18/24 10:01 09/18/24 BUN 24 mg/dL (7-18) H 09/18/24 10:01 09/18/24 Creatinine 0.87 mg/dL (0.70-1.30) 09/18/24 10:01 09/18/24 Glucose 210 mg/dL (74-106) H 09/18/24 10:01 09/18/24 POC Glucose 135 mg/dL (74-106) H 05/26/24 15:25 05/26/24 TSH 1.37 uIU/mL (0.358-3.74) 01/07/24 10:10 01/07/24 COAG PT 16.3 SECONDS (11.7-14.9) H 05/24/24 09:37 05/24/24 Pre-Assessment Diagnosis/Proposed Procedure Planned Operative Procedure(s): Ultrasound Guided Prostate Biopsy Anesthesia History Anesthesia History - show girl: Anesthesia History - show girl Hx Hospitalization Yes: GI BLEED - BLEEDING 10/13/24 09:18 ULCERS Any Problems With Anesthesia No 10/13/24 09:18 Cholinesterase deficiency No 10/13/24 09:18 You/Your Family Experience No 10/13/24 09:18 fever (hyperthermia) with Relationship Recent Exposure to Contagious No 02/08/14 11:39 Disease Does patient have nerve No 10/13/24 09:18 stimulator Patient instructed to have device shut off --Does patient have Pacemaker or ICD? When Was Last Pacemaker Check QUESTION #4 FULL TEXT: You/Your Family Experience fever (hyperthermia) with Anesthesia Last Oral Intake Last Oral intake: Last Oral Intake NPO since Meds taken in AM with sips of water? Meds patient instructed to take am of surgery PONV PONV - show girl: PONV - show girl Female No 10/13/24 09:18 HX of Motion Sickness No 10/13/24 09:18 HX of N/V After Surgery No 10/13/24 09:18 Non-Smoker Yes 10/13/24 09:18 Duration of Surgery greater No 10/13/24 09:18 than 60 minutes Number of Risk Factors 1 10/13/24 09:18 PONV Score Low Risk 10/13/24 09:18 Height & Weight Height & Weight: Anesthesia: Height & Weight Height 6 ft 4 in 08/10/24 13:04 Respiratory Assessment Respiratory Assessment - show girl: Respiratory Tract Infection Hx - show girl Hx Respiratory Tract Infection No 10/13/24 09:18 STOP Sleep Apnea STOP Sleep Apnea - show girl: STOP Sleep Apnea - show girl Hx Hypertension Yes: CONTROLLED WITH MED 10/13/24 09:18 Hx Sleep Apnea Yes 10/13/24 09:18 CPAP Yes 10/13/24 09:18 BIPAP No 10/13/24 09:18 Do you snore loudly (louder than talking or can be heard Do you often feel tired/ fatigued/ sleepy during daytime? Has anyone observed you stop breathing during sleep? STOP Results Positive 10/13/24 09:18 QUESTION #5 FULL TEXT : Do you snore loudly (louder than talking or can be heard through closed doors)? Tobacco Use History Tobacco Use History - show girl: Tobacco Use History - show girl Tobacco Use Smoking Status Never smoker 10/13/24 09:18 Hx Tobacco Use No 10/13/24 09:18 Years Smoking Packs Smoked per Day Smoking Cessation Date was within the last 15 years Hx Smoking Cessation Date Hx Smoking Cessation Counseling Hematologic Medial History Hematologic Hx - show girl: Hematologic Medical Hx - cook candy Hx of Blood Transfusion Yes 10/13/24 09:18 Hx of Transfusion in last 3 No 10/13/24 09:18 Months Date of Last Transfusion (if within last 3 months) Ever experience any problems No 10/13/24 09:18 with transfusion(s)? Specify any problems Hx of Preganancy in last 3 N/A 10/13/24 09:18 Months Nurse Filling Out Transfusion [facility] 10/13/24 09:18 & Questions: Date: 10/13/24 10/13/24 09:18 Time: 09:20 10/13/24 09:18 Patient unable to answer at this time (ie. confused, unrespo /Reproduction History /Reproductive History - show girl: /Reproductive Hx- show girl Hx Now No 10/13/24 09:18 Gestational Age (in weeks): EDC: Hx Hx Para Hx Section SAB No 10/13/24 09:18 Active Medications Active Medications: Current Medications Generic Name Dose Route Start Last Admin Trade Name Freq PRN Reason Stop Dose Admin Cefazolin Sodium 3 gm/ N/A 30 mls @ 600 mls/hr 10/27/24 12:25 IV 10/27/24 12:27 PREOP [facility] Medical History Wears hearing aid Loss of hearing Wears glasses Arthritis Walker as ambulation aid Prostate disease High cholesterol Pulmonary embolism DVT (deep venous thrombosis) Migraine headache History of ulceration History of GI bleed CPAP (continuous positive airway pressure) dependence Sleep apnea Non-smoker History of edema History of echocardiogram History of stress test Cardiology follow-up encounter History of coronary artery disease Hx pulmonary embolism Hypotension Acute upper GI bleed Essential hypertension Diabetes mellitus with multiple complications Lymphedema Leg edema Leg swelling Obstructive sleep apnea on CPAP History of pulmonary embolism (01/2014) History of deep vein thrombosis (DVT) of lower extremity (04/2013) History of ST elevation myocardial infarction (STEMI) (09/2016) Cardiomyopathy, ischemic Bifascicular block Right bundle branch block Nonsustained ventricular tachycardia 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) Type 2 diabetes mellitus without complications Atherosclerosis of coronary artery of [place] heart without angina pectoris Hyperlipidemia Pulmonary embolism, bilateral (2013) Obesities, morbid Sleep apnea Home Medications ?Medication ?Instructions ?Recorded ?Last Taken ?Type dapagliflozin propanediol 10 mg 10 mg PO DAILY 10/03/20 05/23/24 History tablet cholecalciferol (vitamin D3) 1,250 1,250 mcg PO QWEEK 06/05/23 05/22/24 History mcg (50,000 unit) tablet ciprofloxacin HCl 500 mg tablet 500 mg PO DAILY 06/05/23 05/23/24 History doxycycline hyclate 100 mg capsule 100 mg PO DAILY 06/05/23 05/23/24 History metformin 1,000 mg tablet 1,000 mg PO BID 06/05/23 05/23/24 History tamsulosin 0.4 mg capsule 0.4 mg PO DAILY 06/05/23 05/23/24 History oxycodone-acetaminophen 5 mg-325 1 tab PO 4X/DAY PRN PRN pain 05/24/24 05/23/24 History mg tablet clopidogrel 75 mg tablet 75 mg PO QDAY 08/10/24 Unknown History furosemide 40 mg tablet 40 mg PO DAILY PRN depends on work 08/23/24 Unknown Rx schedule #90 tabs apixaban 5 mg tablet (Eliquis) 5 mg PO BID #180 tabs 08/26/24 Unknown Rx atorvastatin 80 mg tablet 80 mg PO QHS #90 TABLETS 08/26/24 Unknown Rx carvedilol 6.25 mg tablet 6.25 mg PO BID #180 TABLETS 08/26/24 Unknown Rx losartan 50 mg tablet 50 mg PO BID #180 TABLETS 08/26/24 Unknown Rx pantoprazole 40 mg tablet,delayed 40 mg PO BID #180 tabs 08/26/24 Unknown Rx release (Protonix) potassium chloride 20 mEq 20 meq PO DAILY #90 TABLETS 08/26/24 Unknown Rx tablet,extended release(part/cryst) (Klor-Con M) Allergy/AdvReac Type Severity Reaction Status Date / Time bee venom protein (honey AdvReac Hives Verified 10/13/24 09:12 bee) (bee sting) clarithromycin (From Biaxin) AdvReac Other Verified 10/13/24 09:12 Family History Brother CAD (coronary artery disease) Myocardial infarction Father CAD (coronary artery disease) Surgical History History of left knee replacement (~2007) History of right knee joint replacement S/P cervical spinal fusion (~1999) History of repair of right rotator cuff History of cardioversion History of total bilateral knee replacement H/O knee surgery (09/12/22) H/O repair of right rotator cuff History of coronary artery stent placement (11/08/16) Social History Smoking Status: Never smoker alcohol intake: never substance use type: does not use caffeine: Yes Type: carbonated beverages Number of servings: 1 what type of physical activity do you participate in: walking frequency: daily duration: other details: active throughout the day seatbelt use: always do you feel safe at home: Yes Review of Systems (Anesthesia) ROS Narrative System reviewed and no additional complaints, except as documented.
[2024-10-27 11:21] LABS: Bedside Glucose 176 mg/dL (74-106)
[2024-11-17] VITALS (9 sets, daily range): BP systolic 111–140; BP diastolic 39–82; PULSE 54–65; RESP 14–16; TEMP 36.2–36.6; O2SAT 96–100; BMI 44.4
--- NOTE | 2024-11-17 09:04 | PRE.ANES_ITS ---
ASA Classification* ASA Classification ASA Classification: 3 Assessment & Plan Anesthesia* Anesthesia Assessment Anesthesia Assessment: Discussed sedation and/or anesthesia options, risks, benefits, and alternatives with patient/parents/legal guardian/POA. Questions invited. The patient/parents/legal guardian/POA seems to understand and agrees to proceed with anesthesia plan. Reviewed the physical assessment, medical history, allergy history and patient home medications list prior to surgery/procedure/anesthetic and documented any changes. Performed airway and anesthesia risk assessments. Anesthesia Type Anesthesia Type: General Anesthesia Focused Assessment* Airway Assessment Mouth opens: >3 cm Mallampati Score: II Focused Labs Anesthesia Preop lab: CBC WBC 5.4 K/mm3 (4.4-11.0) 09/18/24 10:01 09/18/24 RBC 4.74 M/mm3 (4.6-6.2) 09/18/24 10:09/18/24 Hgb 9.9 g/dL (13.0-16.5) L 09/18/24 10:01 09/18/24 Hct 35.0 % (40-54) L 09/18/24 10:01 09/18/24 Plt Count 310 K/mm3 (150-450) 09/18/24 10:01 09/18/24 CHEMISTRY Potassium 4.0 mmol/L (3.5-5.1) 09/18/24 10:01 09/18/24 Sodium 140 mmol/L (136-145) 09/18/24 10:01 09/18/24 Magnesium 2.0 mg/dL (1.8-2.4) 10/13/16 10:12 10/13/16 Phosphorus 3.2 mg/dL (2.5-4.9) 09/18/24 10:01 09/18/24 BUN 24 mg/dL (7-18) H 09/18/24 10:01 09/18/24 Creatinine 0.87 mg/dL (0.70-1.30) 09/18/24 10:01 09/18/24 Glucose 210 mg/dL (74-106) H 09/18/24 10:01 09/18/24 POC Glucose 176 mg/dL (74-106) H 10/27/24 10:50 10/27/24 TSH 1.37 uIU/mL (0.358-3.74) 01/07/24 10:10 COAG PT 16.3 SECONDS (11.7-14.9) H 05/24/24 09:37 04/28 03/20 Pre-Assessment Diagnosis/Proposed Procedure Planned Operative Procedure(s): Ultrasound Guided Prostate Biopsy Anesthesia History 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 When Was Last Pacemaker Check QUESTION #4 FULL TEXT: You/Your Family Experience fever (hyperthermia) with Anesthesia Last Oral Intake Last Oral intake: Last Oral Intake NPO since Meds taken in AM with sips of water? Meds patient instructed to take am of surgery PONV PONV - oil well service unit operator: PONV - oil well service unit operator Female No 10/13/24 09:18 HX of Motion Sickness No 10/13/24 09:18 HX of N/V After Surgery No 10/13/24 09:18 Non-Smoker Yes 10/13/24 09:18 Duration of Surgery greater No 10/13/24 09:18 than 60 minutes Number of Risk Factors 1 10/13/24 09:18 PONV Score Low Risk 10/13/24 09:18 Height & Weight Height & Weight: Anesthesia: Height & Weight Height 6 ft 4 in 11/16/24 07:55 Weight: 159.211 kg 11/16/24 07:55 Respiratory Assessment Respiratory Assessment - oil well service unit operator: Respiratory Tract Infection Hx - oil well service unit operator Hx Respiratory Tract Infection No 10/13/24 09:18 STOP Sleep Apnea STOP Sleep Apnea - oil well service unit operator: STOP Sleep Apnea - oil well service unit operator Hx Hypertension Yes: CONTROLLED WITH MED 10/13/24 09:18 Hx Sleep Apnea Yes 10/13/24 09:18 CPAP Yes 10/13/24 09:18 BIPAP No 10/13/24 09:18 Do you snore loudly (louder than talking or can be heard Do you often feel tired/ fatigued/ sleepy during daytime? Has anyone observed you stop breathing during sleep? STOP Results Positive 10/13/24 09:18 QUESTION #5 FULL TEXT : Do you snore loudly (louder than talking or can be heard through closed doors)? 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 operator: Tobacco Use History - oil well service unit operator Tobacco Use Smoking Status Never smoker 10/13/24 09:18 Hx Tobacco Use No 10/13/24 09:18 Years Smoking Packs Smoked per Day Smoking Cessation Date was within the last 15 years Hx Smoking Cessation Date Hx Smoking Cessation Counseling Hematologic Medial History Hematologic Hx - oil well service unit operator: Hematologic Medical Hx - seat scooper machine Hx of Blood Transfusion Yes 10/13/24 09:18 Hx of Transfusion in last 3 No 10/13/24 09:18 Months Date of Last Transfusion (if within last 3 months) Ever experience any problems No 10/13/24 09:18 with transfusion(s)? Specify any problems Hx of Preganancy in last 3 N/A 10/13/24 09:18 Months Nurse Filling Out Transfusion NBUCHER 10/13/24 09:18 & Questions: Date: 10/13/24 10/13/24 09:18 Time: 09:20 10/13/24 09:18 Patient unable to answer at this time (ie. confused, unrespo /Reproduction History /Reproductive History - oil well service unit operator: /Reproductive Hx- oil well service unit operator Hx Now No 10/13/24 09:18 Gestational Age (in weeks): EDC: Hx Hx Para Hx Section SAB No 10/13/24 09:18 Active Medications Active Medications: Current Medications Generic Name Dose Route Start Last Admin Trade Name Freq PRN Reason Stop Dose Admin Cefazolin Sodium 3 gm/ N/A 30 mls @ 600 mls/hr 11/17/24 10:35 IV 11/17/24 10:37 INTRAOP ONE Lactated Ringer's 1,000 mls @ 15 mls/hr 11/17/24 08:45 IV .Q48H MIR PFSH Medical History Wears hearing aid Loss of hearing Wears glasses Arthritis Walker as ambulation aid Prostate disease High cholesterol Pulmonary embolism DVT (deep venous thrombosis) Migraine headache History of ulceration History of GI bleed CPAP (continuous positive airway pressure) dependence Sleep apnea Non-smoker History of edema History of echocardiogram History of stress test Cardiology follow-up encounter History of coronary artery disease Hx pulmonary embolism Hypotension Acute upper GI bleed Essential hypertension Diabetes mellitus with multiple complications Lymphedema Leg edema Leg swelling Obstructive sleep apnea on CPAP History of pulmonary embolism (01/2014) History of deep vein thrombosis (DVT) of lower extremity (04/2013) History of ST elevation myocardial infarction (STEMI) (09/2016) Cardiomyopathy, ischemic Bifascicular block Right bundle branch block Nonsustained ventricular tachycardia 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) Type 2 diabetes mellitus without complications Atherosclerosis of coronary artery of [place] heart without angina pectoris Hyperlipidemia Pulmonary embolism, bilateral (2013) Obesities, morbid Sleep apnea Home Medications ?Medication ?Instructions ?Recorded ?Last Taken ?Type dapagliflozin propanediol 10 mg 10 mg PO DAILY 1 11/16/24 History tablet cholecalciferol (vitamin D3) 1,250 1,250 mcg PO QWEEK 06/05/23 10/23/24 History mcg (50,000 unit) tablet ciprofloxacin HCl 500 mg tablet 500 mg PO DAILY 11/17/24 05:00 History doxycycline hyclate 100 mg capsule 100 mg PO DAILY 04/1910/26/24 History metformin 1,000 mg tablet 1,000 mg PO BID 06/05/2308/21 History tamsulosin 0.4 mg capsule 0.4 mg PO DAILY 06/05/23 History oxycodone-acetaminophen 5 mg-325 1 tab PO 4X/DAY PRN P RN pain 05/24/24 10/27/24 History mg tablet clopidogrel 75 mg tablet 75 mg PO QDAY 08/10/2411/09 History furosemide 40 mg tablet 40 mg PO DAILY PRN depends o n work 08/23/24 Unknown Rx schedule #90 tabs apixaban 5 mg tablet (Eliquis) 5 mg PO BID #180 tabs 0 08/26/24 11/09/24 Rx atorvastatin 80 mg tablet 80 mg PO QHS #90 TABLETS 10/26/24 Rx carvedilol 6.25 mg tablet 6.25 mg PO BID #180 TABLETS 08/26/24 11/17/24 05:00 Rx losartan 50 mg tablet 50 mg PO BID #180 TABLETS 11/17/24 05:00 Rx pantoprazole 40 mg tablet,delayed 40 mg PO BID #180 ta bs 08/26/24 Unknown Rx release (Protonix) potassium chloride 20 mEq 20 meq PO DAILY #90 TABLETS 08/26/24 Unknown Rx tablet,extended release(part/cryst) (Klor-Con M) Allergy/AdvReac Type Severity Reaction Status Date / Time bee venom protein (honey AdvReac Hives Verified 11/17/24 08:58 bee) (bee sting) clarithromycin (From Biaxin) AdvReac Other Verified 11/17/24 08:58 Family History Brother CAD (coronary artery disease) Myocardial infarction Father CAD (coronary artery disease) Surgical History History of left knee replacement (~2007) History of right knee joint replacement S/P cervical spinal fusion (~1999) History of repair of right rotator cuff History of cardioversion History of total bilateral knee replacement H/O knee surgery (09/12/22) H/O repair of right rotator cuff History of coronary artery stent placement (11/08/16) Social History Smoking Status: Never smoker alcohol intake: never substance use type: does not use caffeine: Yes Type: carbonated beverages Number of servings: 1 what type of physical activity do you participate in: walking frequency: daily duration: other details: active throughout the day seatbelt use: always do you feel safe at home: Yes Review of Systems (Anesthesia) ROS Narrative System reviewed and no additional complaints, except as documented.
[2024-11-17] MEDS: Lactated Ringers 1,000 ML 15 ML IV (09:11)
--- NOTE | 2024-11-17 09:43 | US_ITS ---
EXAM: Ultrasound-guided intraoperative prostate biopsy. CLINICAL HISTORY: Prostate hyperplasia. COMPARISON: None TECHNIQUE: Intraoperative imaging provided for prostate biopsy by the urologist. FINDINGS: Ultrasound-guided prostate biopsy. US/Prostate Biopsy IMPRESSION: Ultrasound-guided prostate biopsy. Reading Location: [place] [id number]
--- NOTE | 2024-11-17 10:06 | PCM.HP.STD ---
HPI - General General Date of Service: 11/17/24 Chief Complaint: elevated psa HPI Narrative POLI AVALOS, is a 69 M who presents prostate biopsy has an elevated PSA. Comes in today for a biopsy [facility] Medical History Wears hearing aid Loss of hearing Wears glasses Arthritis Walker as ambulation aid Prostate disease High cholesterol Pulmonary embolism DVT (deep venous thrombosis) Migraine headache History of ulceration History of GI bleed CPAP (continuous positive airway pressure) dependence Sleep apnea Non-smoker History of edema History of echocardiogram History of stress test Cardiology follow-up encounter History of coronary artery disease Hx pulmonary embolism Hypotension Acute upper GI bleed Essential hypertension Diabetes mellitus with multiple complications Lymphedema Leg edema Leg swelling Obstructive sleep apnea on CPAP History of pulmonary embolism (01/2014) History of deep vein thrombosis (DVT) of lower extremity (04/2013) History of ST elevation myocardial infarction (STEMI) (09/2016) Cardiomyopathy, ischemic Bifascicular block Right bundle branch block Nonsustained ventricular tachycardia 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) Type 2 diabetes mellitus without complications Atherosclerosis of coronary artery of [place] heart without angina pectoris Hyperlipidemia Pulmonary embolism, bilateral (2013) Obesities, morbid Sleep apnea Home Medications ?Medication ?Instructions ?Recorded ?Last Taken ?Type dapagliflozin propanediol 10 mg 10 mg PO DAILY 10/03/20 11/16/24 History tablet cholecalciferol (vitamin D3) 1,250 1,250 mcg PO QWEEK 06/05/23 10/23/24 History mcg (50,000 unit) tablet ciprofloxacin HCl 500 mg tablet 500 mg PO DAILY 06/05/23 11/17/24 05:00 History doxycycline hyclate 100 mg capsule 100 mg PO DAILY 06/05/23 10/26/24 History metformin 1,000 mg tablet 1,000 mg PO BID 06/05/23 10/26/24 History tamsulosin 0.4 mg capsule 0.4 mg PO DAILY 06/05/23 05/23/24 History oxycodone-acetaminophen 5 mg-325 1 tab PO 4X/DAY PRN PRN pain 05/24/24 10/27/24 History mg tablet clopidogrel 75 mg tablet 75 mg PO QDAY 08/10/24 11/09/24 History furosemide 40 mg tablet 40 mg PO DAILY PRN depends on work 08/23/24 Unknown Rx schedule #90 tabs apixaban 5 mg tablet (Eliquis) 5 mg PO BID #180 tabs 08/26/24 11/09/24 Rx atorvastatin 80 mg tablet 80 mg PO QHS #90 TABLETS 08/26/24 10/26/24 Rx carvedilol 6.25 mg tablet 6.25 mg PO BID #180 TABLETS 08/26/24 11/17/24 05:00 Rx losartan 50 mg tablet 50 mg PO BID #180 TABLETS 08/26/24 11/17/24 05:00 Rx pantoprazole 40 mg tablet,delayed 40 mg PO BID #180 tabs 08/26/24 Unknown Rx release (Protonix) potassium chloride 20 mEq 20 meq PO DAILY #90 TABLETS 08/26/24 Unknown Rx tablet,extended release(part/cryst) (Klor-Con M) Allergy/AdvReac Type Severity Reaction Status Date / Time bee venom protein (honey AdvReac Hives Verified 11/17/24 08:58 bee) (bee sting) clarithromycin (From Biaxin) AdvReac Other Verified 11/17/24 08:58 Family History Brother CAD (coronary artery disease) Myocardial infarction Father CAD (coronary artery disease) Surgical History History of left knee replacement (~2007) History of right knee joint replacement S/P cervical spinal fusion (~1999) History of repair of right rotator cuff History of cardioversion History of total bilateral knee replacement H/O knee surgery (09/12/22) H/O repair of right rotator cuff History of coronary artery stent placement (11/08/16) Social History Smoking Status: Never smoker alcohol intake: never substance use type: does not use caffeine: Yes Type: carbonated beverages Number of servings: 1 what type of physical activity do you participate in: walking frequency: daily duration: other details: active throughout the day seatbelt use: always do you feel safe at home: Yes Vital Signs Vital Signs Vital Signs: 11/17/24 08:59 11/17/24 08:59 Temperature 97.6 F L Temperature Source Temporal Pulse Rate 64 Respiratory Rate 16 Respiratory Pattern Normal Blood Pressure 111/61 Blood Pressure Mean 77 Blood Pressure Source Monitor Blood Pressure Position Semi-Fowlers Blood Pressure Location Left Arm Pulse Ox 98 Oxygen Delivery Method Room Air Weight Weight: 165.561 kg Body Mass Index (BMI) 44.4
[2024-11-17] MEDS: Cefazolin 3 GM in Syringe 15 ML IV (10:23)
--- NOTE | 2024-11-17 10:35 | PROSB_PTH ---
PATIENT: POLI AVALOS [place] [facility] [place] U[place][id number] AGE/SX: 69/M ROOM: RE11/17/[address]: Dr. Unruly Cruz MD : [id number] BED: DIS: 11/17/2024 SPEC #: [id number] RECD: 11/17/24 14:08 STATUS: BESSIE SMITH #: [id number] AVILA: 11/17/24 10:[address]: Unruly Cruz DEPT: SURGICAL PATHOLOGY RECD BY: Chad Muniz ENTERED: 11/17/24 14:08 SP TYPE: PROST BX OTHR DR: Dr. Yaneth Maldonado, DO Tissues: A - Prostate, NOS Procedures: Surgery Specimen Level IV HEADER OPERATION: Ultrasound guided prostate biopsy PRE-OP DIAGNOSIS: Elevated PSA TISSUE SUBMITTED: A- Prostate tissue biopsy MICROSCOPIC DIAGNOSIS A. Prostate, core biopsy: * Adenocarcinoma [place] 3+3=6, 1 of 9 cores, involving less than 2% of the tissue. MICROSCOPIC DESCRIPTION Slides are reviewed. GROSS DESCRIPTION A. Received in formalin in a container labeled with the patient's name, date of , and prostate tissue are 9 white and wispy core biopsies of soft tissue ranging from 1.0 x 0.1 cm to 2.0 x 0.1 cm. Submitted in toto in A1-3 (3 cores per cassette). [facility] 11/17/2024 CPT:76036
--- NOTE | 2024-11-17 10:37 | DCINST_ITS ---
Discharge Instructions Diet Discharge Diet: No restrictions DC O2, CPAP, BIPAP needs Home O2 Discharge instructions: No Dressing / Incision Discharge Activity: Return to Normal Activity and May Not Drive (while taking narcotic pain medications.) Dressing / Incision Call your doctor if you observe: Fever of 101 or Higher Follow Up Care Please Follow Up With: Unruly Curz MD When: Call [phone] for an appointment Test Results: Test results from this visit will be discussed in further detail at your follow- up appointment, if applicable. Discharge Plan Admission Attending Provider: Unruly Cruz Primary Care Provider: Yaneth Maldonado Instructions Print Language: Cambodian Discharge Orders/Prescriptions Prescriptions: No Action dapagliflozin propanediol 10 mg tablet 10 mg PO DAILY cholecalciferol (vitamin D3) 1,250 mcg (50,000 unit) tablet 1,250 mcg PO QWEEK metformin 1,000 mg tablet 1,000 mg PO BID Patient Comments: TAKE 1 TABLET BY MOUTH TWICE A DAY ciprofloxacin HCl 500 mg tablet 500 mg PO DAILY Patient Comments: TAKE 1 TABLET BY MOUTH TWICE A DAY doxycycline hyclate 100 mg capsule 100 mg PO DAILY Patient Comments: TAKE 1 CAPSULE BY MOUTH EVERY DAY tamsulosin 0.4 mg capsule 0.4 mg PO DAILY clopidogrel 75 mg tablet 75 mg PO QDAY oxycodone-acetaminophen 5-325 mg tablet 1 tab PO 4X/DAY PRN PRN (Reason: pain) furosemide 40 mg tablet 40 mg PO DAILY PRN (Reason: depends on work schedule) Qty: 90 3RF Eliquis 5 mg tablet 5 mg PO BID Qty: 180 3RF atorvastatin 80 mg tablet 80 mg PO QHS Qty: 90 3RF carvedilol 6.25 mg tablet 6.25 mg PO BID Qty: 180 3RF losartan 50 mg tablet 50 mg PO BID Qty: 180 3RF pantoprazole [Protonix] 40 mg tablet,delayed release (DR/EC) 40 mg PO BID Qty: 180 3RF potassium chloride [Klor-Con M20] 20 mEq tablet,ER particles/crystals 20 meq PO DAILY Qty: 90 3RF Referrals / Follow Up: Yaneth Maldonado, [Primary Care Provider] - Disposition Disposition (needs filled in before D/C Order can be placed): Home, Self Care
--- NOTE | 2024-11-17 10:37 | PCM.OPRPT ---
Operative Report (Standard) Operative Information Date of Procedure: 11/17/24 Pre-Operative Diagnosis: Elevated PSA Post-Operative Diagnosis: Same Surgery/Procedure Performed: Ultrasound-guided prostate biopsy horse riding coach or instructor: No Type of Anesthesia: General RN Documented Start/Stop Times: Operation Date: 11/17/24 10:35 Case Time Into Pre-Op 11/17/24 08:37 Out of Pre-Op Procedure Start Time: 10:25 Procedure Stop Time: 10:37 Select all DRAINS/GRAFTS/IMPLANTS that apply: None Estimated Blood Loss: 0 Specimen collected: Yes Description of specimen(s) removed: Prostate tissue Description of surgery: This is a 69-year-old male morbidly obese with multiple medical problems who has severe debility from chronic problems very difficult for him to get around soaring at the taken to surgery today to do a prostate biopsy because of his more immobility problems. He was brought back to the operating room he underwent MAC local anesthesia and then underwent LMA and general anesthesia we then positioned him on his side he had a he is known to have a problem with his right leg so the leg was left alone and we did not put the leg we left it straight and did not manipulate the leg I then turned him on his side and we put an ultrasound probe into the rectum and then under ultrasonography I got biopsies of both the left and right side of the prostate at the base middle and apex on both sides all the specimen was put in 1 specimen cup. Patient tolerated procedure well and was taken back to the PACU in good condition and will follow up in 2 weeks to review the results of the biopsies he did have a very high-grade lesion seen on MRI preop. Surgical Findings: Prostate tissue from both sides Complications Complications: No Admit VTE Documentation VTE Present on Admission: No VTE Mechan Device Prophylaxis: SCD's VTE Pharm Prophylaxis ordered?: No
--- NOTE | 2024-11-17 10:46 | PCM.POST.ANE ---
Anesthesia: Postop Eval I Current Vital Signs Temperature: 97.1 F Pulse Rate: 59 Blood Pressure: 138/64 Respiratory Rate: 14 Pulse Ox: 96 Oxygen Delivery Method: Room Air Assessment Airway patent: Yes Spontaneous unlabored respirations: Yes Mental status: Awake and Calm nausea: No Vomiting: No Anesthesia Complication: No Fluid Hydration Crystalloid volume administer (ml): 500 Total IV fluid infused: 500 Progress Note Anesthesia document: Postop Eval 1 completed: Yes
--- NOTE | 2024-11-17 10:49 | POSTOPAN2_ITS ---
Anesthesia Postop Eval I Sum Postop Eval Completion status Anesthesia document: Postop Eval 1 completed: Yes Anesthesia Postop Eval I Summary Anesthesia Postop Eval I Summary: Anesthesia Postop Eval I: Assessment Summary Airway patent Yes 11/17/24 10:46 ASSISTED LIVING NURSING DIRECTOR.JDEF Spontaneous unlabored Yes 11/17/24 10:46 ASSISTED LIVING NURSING DIRECTOR.JDEF respirations Mental status Awake,Calm 11/17/24 10:46 ASSISTED LIVING NURSING DIRECTOR.JDEF nausea No 11/17/24 10:46 ASSISTED LIVING NURSING DIRECTOR.JDEF Vomiting No 11/17/24 10:46 ASSISTED LIVING NURSING DIRECTOR.JDEF Anesthesia Postop Eval I: Fluid Summary Crystalloid volume administer 500 11/17/24 10:46 ASSISTED LIVING NURSING DIRECTOR.JDEF (ml) Colloids volume administered ( ml) Blood Product volume administered (ml) Total IV fluid infused 500 11/17/24 10:46 ASSISTED LIVING NURSING DIRECTOR.JDEF Anesthesia Postop Eval I: Summary Notes Anesthesia Complication No 11/17/24 10:46 ASSISTED LIVING NURSING DIRECTOR.JDEF Anesthesia Complication Comment: Post-operative progress note Anesthesia: Postop Eval II Evaluation Mental status: Awake Pain Level: 0 nausea: No Vomiting: No
--- NOTE | 2024-11-17 10:49 | PCM.POSTANE2 ---
Anesthesia Postop Eval I Sum Postop Eval Completion status Anesthesia document: Postop Eval 1 completed: Yes Anesthesia Postop Eval I Summary Anesthesia Postop Eval I Summary: Anesthesia Postop Eval I: Assessment Summary Airway patent Yes 11/17/24 10:46 FRINGE WEAVER.[email or web address] Spontaneous unlabored Yes 11/17/24 10:46 FRINGE WEAVER.JDEF respirations Mental status Awake,Calm 11/17/24 10:46 FRINGE WEAVER.JDEF nausea No 11/17/24 10:46 FRINGE WEAVER.JDEF Vomiting No 11/17/24 10:46 FRINGE WEAVER.JDEF Anesthesia Postop Eval I: Fluid Summary Crystalloid volume administer 500 11/17/24 10:46 FRINGE WEAVER.JDEF (ml) Colloids volume administered ( ml) Blood Product volume administered (ml) Total IV fluid infused 500 11/17/24 10:46 FRINGE WEAVER.JDEF Anesthesia Postop Eval I: Summary Notes Anesthesia Complication No 11/17/24 10:46 FRINGE WEAVER.JDEF Anesthesia Complication Comment: Post-operative progress note Anesthesia: Postop Eval II Evaluation Mental status: Awake Pain Level: 0 nausea: No Vomiting: No
[2024-11-17 10:55] LABS: Bedside Glucose 175 mg/dL (74-106)
== END 2024-11-17 11:44 | disposition home or self-care (01) ==
LOC: SDC 08:23 → AC 08:24
PROVIDERS: Referring Provider Urology; Visit Provider Urology
PROC: (CPT 55700; principal; 2024-11-17 10:25)
DX: C61 Malignant neoplasm of prostate (principal); E66.01 Morbid (severe) obesity due to excess calories; Z68.41 Body mass index [BMI] 40.0-44.9, adult; E11.9 Type 2 diabetes mellitus without complications; I25.10 Atherosclerotic heart disease of native coronary artery without angina pectoris; I10 Essential (primary) hypertension; I25.2 Old myocardial infarction; E78.00 Pure hypercholesterolemia, unspecified; Z95.5 Presence of coronary angioplasty implant and graft; Z79.01 Long term (current) use of anticoagulants; Z79.02 Long term (current) use of antithrombotics/antiplatelets; Z79.84 Long term (current) use of oral hypoglycemic drugs; Z79.899 Other long term (current) drug therapy; Z86.711 Personal history of pulmonary embolism; Z86.718 Personal history of other venous thrombosis and embolism
CPT/HCPCS: 00902; 55700; 76942; 82962; 88305; J2405

== ENCOUNTER 2025-07-11 08:23 | Day surgery (SDC) | payer MEDICARE, OTHER, SELFPAY ==
[2016-11-08 15:12] VITALS: BMI 44.6
--- NOTE | 2025-07-06 12:14 | PAT.ANESEVAL ---
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 When Was Last Pacemaker Check QUESTION #4 FULL TEXT: You/Your Family Experience fever (hyperthermia) with Anesthesia Last Oral Intake Last Oral intake: Last Oral Intake NPO since Meds taken in AM with sips of water? Meds patient instructed to take am of surgery PONV PONV - security public safety officer: PONV - security public safety officer Female No 07/06/25 11:14 HX of Motion Sickness No 07/06/25 11:14 HX of N/V After Surgery No 07/06/25 11:14 Non-Smoker Yes 07/06/25 11:14 Duration of Surgery greater No 07/06/25 11:14 than 60 minutes Number of Risk Factors 1 07/06/25 11:14 PONV Score Low Risk 07/06/25 11:14 Height & Weight Height & Weight: Anesthesia: Height & Weight Height 6 ft 4 in 06/21/25 06:58 Respiratory Assessment Respiratory Assessment - security public safety officer: Respiratory Tract Infection Hx - security public safety officer Hx Respiratory Tract Infection No 07/06/25 11:14 STOP Sleep Apnea STOP Sleep Apnea - security public safety officer: STOP Sleep Apnea - security public safety officer Hx Hypertension Yes: CONTROLLED WITH MED 07/06/25 11:14 Hx Sleep Apnea Yes 07/06/25 11:14 CPAP Yes 07/06/25 11:14 BIPAP No 07/06/25 11:14 Do you snore loudly (louder than talking or can be heard Do you often feel tired/ fatigued/ sleepy during daytime? Has anyone observed you stop breathing during sleep? STOP Results Positive 07/06/25 11:14 QUESTION #5 FULL TEXT : Do you snore loudly (louder than talking or can be heard through closed doors)? 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 Specify any problems Hx of Preganancy in last 3 N/A 07/06/25 11:14 Months Nurse Filling Out Transfusion NBUCHER 07/06/25 11:14 & Questions: Date: 07/06/25 07/06/25 11:14 Time: 11:17 07/06/25 11:14 Patient unable to answer at this time (ie. confused, unrespo /Reproduction History /Reproductive History - security public safety officer: /Reproductive Hx- security public safety officer Hx Now Gestational Age (in weeks): EDC: Hx Hx Para Hx Section SAB No 07/06/25 11:14 Does the father of the baby or his family experience fever w Father of the baby Malignant [facility]ension [facility] History Hypertension Wears hearing aid Loss of hearing Wears glasses Arthritis Walker as ambulation aid Prostate disease High cholesterol Pulmonary embolism DVT (deep venous thrombosis) Migraine headache History of ulceration History of GI bleed CPAP (continuous positive airway pressure) dependence Sleep apnea Non-smoker History of edema History of echocardiogram History of stress test Cardiology follow-up encounter History of coronary artery disease Hx pulmonary embolism Hypotension Acute upper GI bleed Essential hypertension Diabetes mellitus with multiple complications Lymphedema Leg edema Leg swelling Obstructive sleep apnea on CPAP History of pulmonary embolism (01/2014) History of deep vein thrombosis (DVT) of lower extremity (04/2013) History of ST elevation myocardial infarction (STEMI) (09/2016) Cardiomyopathy, ischemic Bifascicular block Right bundle branch block Nonsustained ventricular tachycardia 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) Type 2 diabetes mellitus without complications Atherosclerosis of coronary artery of [place] heart without angina pectoris Hyperlipidemia Pulmonary embolism, bilateral (2013) Obesities, morbid Sleep apnea Home Medications ?Medication ?Instructions ?Recorded ?Last Taken ?Type cholecalciferol (vitamin D3) 1,250 1,250 mcg PO QWEEK 06/05/23 10/23/24 History mcg (50,000 unit) tablet ciprofloxacin HCl 500 mg tablet 500 mg PO DAILY 06/05/23 11/17/24 05:00 History doxycycline hyclate 100 mg capsule 100 mg PO DAILY 06/05/23 10/26/24 History metformin 1,000 mg tablet 1,000 mg PO BID 06/05/23 10/26/24 History tamsulosin 0.4 mg capsule 0.4 mg PO DAILY 06/05/23 05/23/24 History oxycodone-acetaminophen 5 mg-325 1 tab PO 4X/DAY PRN PRN pain 05/24/24 10/27/24 History mg tablet furosemide 40 mg tablet 40 mg PO DAILY PRN depends on work 08/23/24 Unknown Rx schedule #90 tabs apixaban 5 mg tablet (Eliquis) 5 mg PO BID #180 tabs 06/13/25 Unknown Rx atorvastatin 80 mg tablet 80 mg PO QHS #90 TABLETS 06/13/25 Unknown Rx losartan 50 mg tablet 50 mg PO BID #180 TABLETS 06/13/25 Unknown Rx pantoprazole 40 mg tablet,delayed 40 mg PO BID #180 tabs 06/13/25 Unknown Rx release (Protonix) potassium chloride 20 mEq 20 meq PO DAILY #90 TABLETS 06/13/25 Unknown Rx tablet,extended release(part/cryst) (Klor-Con M) carvedilol 6.25 mg tablet 6.25 mg PO BID #180 TABLETS 06/21/25 Unknown Rx dapagliflozin propanediol 10 mg 10 mg PO DAILY #90 tabs 06/21/25 Unknown Rx tablet Allergy/AdvReac Type Severity Reaction Status Date / Time bee venom protein (honey AdvReac Hives Verified 07/06/25 11:11 bee) (bee sting) clarithromycin (From Biaxin) AdvReac Other Verified 07/06/25 11:11 Family History Brother CAD (coronary artery disease) Myocardial infarction Father CAD (coronary artery disease) Surgical History History of prostate biopsy History of left knee replacement (~2007) History of right knee joint replacement S/P cervical spinal fusion (~1999) History of repair of right rotator cuff History of cardioversion History of total bilateral knee replacement H/O knee surgery (09/12/22) H/O repair of right rotator cuff History of coronary artery stent placement (11/08/16) Social History Smoking Status: Never smoker alcohol intake: never substance use type: does not use caffeine: Yes Type: carbonated beverages Number of servings: 1 what type of physical activity do you participate in: walking frequency: daily duration: other details: active throughout the day seatbelt use: always do you feel safe at home: Yes Addt'l Information Additional Findings: Patient has 4 mets and follows with cardiology Recommendation Anesthesia Recommendation Anesthesia recommendation: OPTIMIZED for anesthesia
[2025-07-11] VITALS (7 sets, daily range): BP systolic 100–129; BP diastolic 63–80; PULSE 74–84; RESP 16–18; TEMP 36.1–36.6; O2SAT 95–100; BMI 44.5
[2025-07-11] MEDS: Lactated Ringers 1,000 ML 15 ML IV (08:59)
--- NOTE | 2025-07-11 09:00 | RAD_ITS ---
PROCEDURE: Intraoperative fluoroscopic services. 07/11/2025 REASON FOR EXAM: GENICULAR NERVE ABLATION, RIGHT TECHNIQUE: Procedure Code: RADK Modality: DX Procedure: KNEE 1 OR 2 VIEWS Intraoperative fluoroscopic services provided for right genicular nerve ablation. 12.1 seconds of fluoroscopy. 2.47 mGy radiation dose. 7 images were submitted. COMPARISON: None FINDINGS: Intraoperative fluoroscopic services provided for right geniculate nerve ablation. RAD/Knee 1 or 2 Views IMPRESSION: Intraoperative fluoroscopic services provided for right geniculate nerve ablati on. Reading Location: [id number]
--- NOTE | 2025-07-11 09:05 | PRE.ANES_ITS ---
ASA Classification* ASA Classification ASA Classification: 3 Assessment & Plan Anesthesia* Anesthesia Assessment Anesthesia Assessment: Discussed sedation and/or anesthesia options, risks, benefits, and alternatives with patient/parents/legal guardian/POA. Questions invited. The patient/parents/legal guardian/POA seems to understand and agrees to proceed with anesthesia plan. Reviewed the physical assessment, medical history, allergy history and patient home medications list prior to surgery/procedure/anesthetic and documented any changes. Performed airway and anesthesia risk assessments. Anesthesia Type Anesthesia Type: MAC History Source History Obtained from:: Patient and Chart Anesthesia Focused Assessment* Temperature: 97.0 F Pulse Rate: 84 Blood Pressure: 129/63 Respiratory Rate: 18 Pulse Ox: 100 Oxygen Delivery Method: Room Air Airway Assessment Mouth opens: >3 cm Mallampati Score: II Teeth Condition: Caps/Crowns (Patient has several crowns. They are all tight.) Neck Range of motion (ROM): Limited ROM (Slight Decrease. Patient is status post cervical fusion at C5-C6.) Labs Anesthesia Preop lab: CBC WBC, (4.4-11.0) 5.4 K/mm3 09/18/24, 10:01 RBC, (4.6-6.2) 4.74 M/mm3 09/18/24, 10:01 Hgb, (13.0-16.5) 9.9 g/dL L 09/18/24, 10:01 Hct, (40-54) 35.0 % L 09/18/24, 10:01 Plt Count, (150-450) 310 K/mm3 09/18/24, 10:01 CHEMISTRY Potassium, (3.5-5.1) 4.0 mmol/L 09/18/24, 10:01 Sodium, (136-145) 140 mmol/L 09/18/24, 10:01 Magnesium, (1.8-2.4) 2.0 mg/dL 10/13/16, 10:12 Phosphorus, (2.5-4.9) 3.2 mg/dL 09/18/24, 10:01 BUN, (7-18) 24 mg/dL H 09/18/24, 10:01 Creatinine, (0.70-1.30) 0.87 mg/dL 09/18/24, 10:01 Glucose, (74-106) 210 mg/dL H 09/18/24, 10:01 POC Glucose, (74-106) 175 mg/dL H 11/17/24, 08:57 TSH, (0.358-3.74) 1.37 uIU/mL 01/07/24, 10:10 COAG PT, (11.7-14.9) 16.3 SECONDS H 05/24/24, 09:37 Pre-Assessment Diagnosis/Proposed Procedure Planned Operative Procedure(s): (R) Injection,Knee,SUPERIOR MEDIAL, SUPERIOR LATERAL, INFERIOR MEDIAL GENICULAR NERVES RADIOFREQUENCY ABLATION UNDER FLUOROSCOPY Anesthesia History Anesthesia History - prefinish operator: Anesthesia History - prefinish operator Hx Hospitalization No 07/06/25 11:14 Any Problems With Anesthesia No 07/06/25 11:14 Cholinesterase deficiency No 07/06/25 11:14 You/Your Family Experience No 07/06/25 11:14 fever (hyperthermia) with Relationship Recent Exposure to Contagious No 07/11/25 08:44 Disease Does patient have nerve No 07/06/25 11:14 stimulator Patient instructed to have device shut off --Does patient have Pacemaker No 07/11/25 08:44 or ICD? When Was Last Pacemaker Check QUESTION #4 FULL TEXT: You/Your Family Experience fever (hyperthermia) with Anesthesia Last Oral Intake Last Oral intake: Last Oral Intake NPO since 07:30 07/11/25 08:44 Meds taken in AM with sips of Yes 07/11/25 08:44 water? Meds patient instructed to carvedilol, pantoprazole, 07/11/25 08:44 take am of surgery Eliquis, losartan, Percocet Any additional information?: Yes Meds taken in AM with sips of water?: Yes PONV PONV - prefinish operator: PONV - prefinish operator Female No 07/06/25 11:14 HX of Motion Sickness No 07/06/25 11:14 HX of N/V After Surgery No 07/06/25 11:14 Non-Smoker Yes 07/06/25 11:14 Duration of Surgery greater No 07/06/25 11:14 than 60 minutes Number of Risk Factors 1 07/06/25 11:14 PONV Score Low Risk 07/06/25 11:14 Height & Weight Height & Weight: Anesthesia: Height & Weight Height 6 ft 4 in 07/11/25 08:44 Weight: 165.873 kg 07/11/25 08:44 Body Mass Index (BMI) 44.5 07/11/25 08:44 Respiratory Assessment Respiratory Assessment - prefinish operator: Respiratory Tract Infection Hx - prefinish operator Hx Respiratory Tract Infection No 07/06/25 11:14 STOP Sleep Apnea STOP Sleep Apnea - prefinish operator: STOP Sleep Apnea - prefinish operator Hx Hypertension Yes: CONTROLLED WITH MED 07/06/25 11:14 Hx Sleep Apnea Yes 07/06/25 11:14 CPAP Yes 07/06/25 11:14 BIPAP No 07/06/25 11:14 Do you snore loudly (louder than talking or can be heard Do you often feel tired/ fatigued/ sleepy during daytime? Has anyone observed you stop breathing during sleep? STOP Results Positive 07/06/25 11:14 QUESTION #5 FULL TEXT : Do you snore loudly (louder than talking or can be heard through closed doors)? 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 Specify any problems Hx of Preganancy in last 3 N/A 07/06/25 11:14 Months Nurse Filling Out Transfusion NBUCHER 07/06/25 11:14 & Questions: Date: 07/06/25 07/06/25 11:14 Time: 11:17 07/06/25 11:14 Patient unable to answer at this time (ie. confused, unrespo /Reproduction History /Reproductive History - prefinish operator: /Reproductive Hx- prefinish operator Hx Now Gestational Age (in weeks): EDC: Hx Hx Para Hx Section SAB No 07/06/25 11:14 Does the father of the baby or his family experience fever w Father of the baby Malignant Hypertension history comment Active Medications Active Medications: Current Medications Generic Name Dose Route Start Last Admin Trade Name Freq PRN Reason Stop Dose Admin Lactated Ringer's 1,000 mls @ 15 mls/hr 07/11/25 08:30 07/11/25 08:59 IV 15 mls/hr .Q48H MIR Administration PFSH Medical History Hypertension Wears hearing aid Loss of hearing Wears glasses Arthritis Walker as ambulation aid Prostate disease High cholesterol Pulmonary embolism DVT (deep venous thrombosis) Migraine headache History of ulceration History of GI bleed CPAP (continuous positive airway pressure) dependence Sleep apnea Non-smoker History of edema History of echocardiogram History of stress test Cardiology follow-up encounter History of coronary artery disease Hx pulmonary embolism Hypotension Acute upper GI bleed Essential hypertension Diabetes mellitus with multiple complications Lymphedema Leg edema Leg swelling Obstructive sleep apnea on CPAP History of pulmonary embolism (01/2014) History of deep vein thrombosis (DVT) of lower extremity (04/2013) History of ST elevation myocardial infarction (STEMI) (09/2016) Cardiomyopathy, ischemic Bifascicular block Right bundle branch block Nonsustained ventricular tachycardia 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) Type 2 diabetes mellitus without complications Atherosclerosis of coronary artery of [place] heart without angina pectoris Hyperlipidemia Pulmonary embolism, bilateral (2013) Obesities, morbid Sleep apnea Home Medications ?Medication ?Instructions ?Recorded ?Last Taken ?Type cholecalciferol (vitamin D3) 1,250 1,250 mcg PO QWEEK 06/05/23 07/09/25 History mcg (50,000 unit) tablet ciprofloxacin HCl 500 mg tablet 500 mg PO DAILY 07/10/25 History doxycycline hyclate 100 mg capsule 100 mg PO DAILY 04/1907/10/25 History metformin 1,000 mg tablet 1,000 mg PO BID 06/05/23 History tamsulosin 0.4 mg capsule 0.4 mg PO DAILY 06/05/23 History oxycodone-acetaminophen 5 mg-325 1 tab PO 4X/DAY PRN P RN pain 05/24/24 07/11/25 History mg tablet furosemide 40 mg tablet 40 mg PO DAILY PRN depends o n work 08/23/24 Unknown Rx schedule #90 tabs apixaban 5 mg tablet (Eliquis) 5 mg PO BID #180 tabs 1 08/13/24 07/11/25 Rx atorvastatin 80 mg tablet 80 mg PO QHS #90 TABLETS 07/10/25 Rx losartan 50 mg tablet 50 mg PO BID #180 TABLETS 07/11/25 Rx pantoprazole 40 mg tablet,delayed 40 mg PO BID #180 ta bs 06/13/25 07/11/25 Rx release (Protonix) potassium chloride 20 mEq 20 meq PO DAILY #90 TABLETS 06/13/25 07/10/25 Rx tablet,extended release(part/cryst) (Klor-Con M) carvedilol 6.25 mg tablet 6.25 mg PO BID #180 TABLETS 06/21/25 07/11/25 Rx dapagliflozin propanediol 10 mg 10 mg PO DAILY #90 tab s 06/21/25 07/07/25 Rx tablet Allergy/AdvReac Type Severity Reaction Status Date / Time bee venom protein (honey AdvReac Hives Verified 07/11/25 08:44 bee) (bee sting) clarithromycin (From Biaxin) AdvReac Other Verified 07/11/25 08:44 Family History Brother CAD (coronary artery disease) Myocardial infarction Father CAD (coronary artery disease) Surgical History History of prostate biopsy History of left knee replacement (~2007) History of right knee joint replacement S/P cervical spinal fusion (~1999) History of repair of right rotator cuff History of cardioversion History of total bilateral knee replacement H/O knee surgery (09/12/22) H/O repair of right rotator cuff History of coronary artery stent placement (11/08/16) Social History Smoking Status: Never smoker alcohol intake: never substance use type: does not use caffeine: Yes Type: carbonated beverages Number of servings: 1 what type of physical activity do you participate in: walking frequency: daily duration: other details: active throughout the day seatbelt use: always do you feel safe at home: Yes Review of Systems (Anesthesia) ROS Narrative System reviewed and no additional complaints, except as documented.
[2025-07-11] MEDS: Lidocaine 1% (30 ml sdv) 30 ML Vial (09:26)
--- NOTE | 2025-07-11 09:35 | OP.PCM_ITS ---
Operative Report (Standard) Operative Information Date of Procedure: 07/11/25 Pre-Operative Diagnosis: Osteoarthritis of the right knee, chronic postoperative knee pain Post-Operative Diagnosis: Osteoarthritis of the right knee, chronic postoperative knee pain Surgery/Procedure Performed: Right knee radiofrequency ablation of the superior medial, superior lateral, inferior medial genicular nerves under fluoroscopic guidance nurse infection control: No Type of Anesthesia: Local MAC RN Documented Start/Stop Times: Operation Date: 07/11/25 10:00 Case Time Into Pre-Op 07/11/25 08:28 Anesthesia Start 07/11/25 09:16 Into Room 07/11/25 09:16 Procedure Start 07/11/25 09:22 Procedure End 07/11/25 09:32 Into Recovery 07/11/25 09:33 Out of Room 07/11/25 09:34 Anesthesia End 07/11/25 09:35 Procedure Start Time: 09:35 Procedure Stop Time: 09:35 Select all DRAINS/GRAFTS/IMPLANTS that apply: None Estimated Blood Loss: 1 Specimen collected: No Description of surgery: ANESTHESIA: MAC. BLOOD LOSS: Minimal. COMPLICATIONS: None. DESCRIPTION OF PROCEDURE: History and physical of today was reviewed. Risks and benefits of the procedure were explained. The patient understood and agreed to proceed. Informed consent was obtained. IV inserted per routine protocol. The patient was taken to the operating room and placed in the supine position. The right knee was prepped and draped in a sterile fashion using iodine x3. Under fluoroscopy guidance on AP view, the right knee was visualized. The skin and subcutaneous tissue was anesthetized with approximately 10 mL of 1% lidocaine using a 25-gauge regular needle at the vicinity of the superomedial, superolateral, and inferomedial genicular nerves. Under direct visualization of fluoroscopy on AP view as well as lateral view, starting on the right superomedial, ending on the right inferomedial, passing through the right superolateral genicular nerves, using a 10 cm radiofrequency ablation needle with a 10 mm active curved tip, the needle was passed through the skin. The tip of the needle was maneuvered and directed towards the diaphyseal junction of each corresponding nerve. Once tip of the needle was in the vicinity of the diaphysis and in contact with the bone, after confirmation on AP as well as lateral view and repeated negative aspiration for blood, the radiofrequency ablation probe was then inserted at each level impedance was then recorded at the superior medial 235, at the superior lateral 275, at the inferior medial 306 ohm, motor evoked potential was then initiated at 2 Hz and 1.5 V without any apparent motor response at the right knee and leg, the needles were then removed intact and a total of 10 cc of preservative-free 1% light lidocaine was injected in divided doses between these levels the radiofrequency ablation probes were then reinserted and the radiofrequency ablation started at 80 ?C for 90 seconds at each level patient tolerated the procedure well the probe was then removed intact and a total of 6 mL of preservative-free 0.25% Marcaine with 40 mg of Depo-Medrol was injected in divided doses between those three levels. The needles were then removed intact. The patient experienced no sign or symptoms of intravascular injection. The patient experienced no paresthesia. The procedure was completed without any apparent difficulty or any complications. The patient appeared to tolerate it well. ASSESSMENT AND PLAN: This is a 69-year-old male with osteoarthritis of the right knee, chronic postoperative knee pain, status post right sided radiofrequency ablation of the superior medial, superior lateral, inferior medial genicular nerves under fluoroscopic guidance, patient will continue his current medications, patient will follow-up in approximately 2 weeks for reevaluation. Surgical Findings: 0 Complications Complications: No Admit VTE Documentation VTE Present on Admission: No VTE Mechan Device Prophylaxis: None VTE Pharm Prophylaxis ordered?: No
--- NOTE | 2025-07-11 14:47 | PCM.POST.ANE ---
Anesthesia: Postop Eval I Current Vital Signs Temperature: 97.9 F Pulse Rate: 74 Blood Pressure: 100/74 Respiratory Rate: 16 Pulse Ox: 98 Oxygen Delivery Method: Room Air Assessment Airway patent: Yes Spontaneous unlabored respirations: Yes Mental status: Awake and Calm nausea: No Vomiting: No Anesthesia Complication: No Fluid Hydration Crystalloid volume administer (ml): 200 Total IV fluid infused: 200 Progress Note Anesthesia document: Postop Eval 1 completed: Yes
--- NOTE | 2025-07-11 14:48 | POSTOPAN2_ITS ---
Anesthesia Postop Eval I Sum Postop Eval Completion status Anesthesia document: Postop Eval 1 completed: Yes Anesthesia Postop Eval I Summary Anesthesia Postop Eval I Summary: Anesthesia Postop Eval I: Assessment Summary Airway patent Yes 07/11/25 14:48 DRAWER IN DOBBY [email or web address] Spontaneous unlabored Yes 07/11/25 14:48 DRAWER IN DOBBY [email or web address] respirations Mental status Awake,Calm 07/11/25 14:48 DRAWER IN DOBBY [email or web address] nausea No 07/11/25 14:48 DRAWER IN DOBBY [email or web address] Vomiting No 07/11/25 14:48 DRAWER IN DOBBY [email or web address] Anesthesia Postop Eval I: Fluid Summary Crystalloid volume administer 200 07/11/25 14:48 DRAWER IN DOBBY [email or web address] (ml) Colloids volume administered ( ml) Blood Product volume administered (ml) Total IV fluid infused 200 07/11/25 14:48 DRAWER IN DOBBY [email or web address] Anesthesia Postop Eval I: Summary Notes Anesthesia Complication No 07/11/25 14:48 DRAWER IN DOBBY [email or web address] Anesthesia Complication Comment: Post-operative progress note Anesthesia: Postop Eval II Evaluation Mental status: Awake and Calm Pain Level: 0 nausea: No Vomiting: No
--- NOTE | 2025-07-11 14:48 | PCM.POSTANE2 ---
Anesthesia Postop Eval I Sum Postop Eval Completion status Anesthesia document: Postop Eval 1 completed: Yes Anesthesia Postop Eval I Summary Anesthesia Postop Eval I Summary: Anesthesia Postop Eval I: Assessment Summary Airway patent Yes 07/11/25 14:48 [email or web address] Spontaneous unlabored Yes 07/11/25 14:48 [email or web address] respirations Mental status Awake,Calm 07/11/25 14:48 [email or web address] nausea No 07/11/25 14:48 [email or web address] Vomiting No 07/11/25 14:48 [email or web address] Anesthesia Postop Eval I: Fluid Summary Crystalloid volume administer 200 07/11/25 14:48 [email or web address] (ml) Colloids volume administered ( ml) Blood Product volume administered (ml) Total IV fluid infused 200 07/11/25 14:48 [email or web address] Anesthesia Postop Eval I: Summary Notes Anesthesia Complication No 07/11/25 14:48 [email or web address] Anesthesia Complication Comment: Post-operative progress note Anesthesia: Postop Eval II Evaluation Mental status: Awake and Calm Pain Level: 0 nausea: No Vomiting: No
== END 2025-07-11 10:21 | disposition home or self-care (01) ==
LOC: SDC 08:23 → AC 08:25
PROVIDERS: Referring Provider Anesthesiology Pain Medicine; Visit Provider Anesthesiology Pain Medicine
PROC: (CPT 64624; principal; 2025-07-11 09:55)
DX: M17.11 Unilateral primary osteoarthritis, right knee (principal); E66.01 Morbid (severe) obesity due to excess calories; Z68.41 Body mass index [BMI] 40.0-44.9, adult; E11.8 Type 2 diabetes mellitus with unspecified complications; G89.28 Other chronic postprocedural pain; I10 Essential (primary) hypertension; Z79.01 Long term (current) use of anticoagulants; Z79.84 Long term (current) use of oral hypoglycemic drugs; Z79.899 Other long term (current) drug therapy; Z86.711 Personal history of pulmonary embolism; Z86.718 Personal history of other venous thrombosis and embolism
CPT/HCPCS: 64624; 01991; 73560; 76000; 82962